=== PATIENT | male | born 1945 | race Caucasian/White ===

== ENCOUNTER 2024-04-22 14:08 | Outpatient (OUT) | payer MEDICARE, SELFPAY ==
[2024-04-23 10:03] LABS: Prostate Specific Antigen Dx <0.13 ng/mL (<=4.00)
== END 2024-04-22 14:09 | disposition home or self-care (01) ==
LOC: LAB 14:12
PROVIDERS: PCP Internal Medicine; Visit Provider Radiology Radiation Oncology
DX: Z85.46 Personal history of malignant neoplasm of prostate (principal)
CPT/HCPCS: 36415; 84153

== ENCOUNTER 2025-05-06 15:33 | Outpatient (OUT) | payer MEDICARE, SELFPAY ==
--- OUTSIDE RECORDS SUMMARY | 2025-05-06 15:35 | XMS_ITS | Encounter Summary ---
Author Organization [facility] Address [address] [place] [address] Care Team Providers Care Quality Assurance Representative Name Role Phone Huber Henning MD Primary Care Provider [phone] Huber Henning MD Unavailable [phone] Encounter Details Date Type Department Care Team (Late Contact Info) Description 12/04/2024 Abstract [facility] [address] [facility] [address] [place] [phone] Huber Henning MD [address] [facility] 110 [place] [address] Social History Tobacco Use Types Packs/Day Years Used Date Smoking Tobacco: Never Smokeless Tobacco: Never Alcohol Use Standard Drinks/Week Comments Never 0 (1 standard drink = 0.6 oz pur e alcohol) PHQ-2 Answer Date Recorded Patient Health Questionnaire-2 Score 0 11/28/2024 Sex and Gender Information Value Date Recorded Sex Assigned at Not on file Legal Sex Male 6:48 PM EDT Gender Identity Not on file Sexual Orientation Not on file documented as of this encounter Plan of Treatment Upcoming Encounters Date Type Department Care Team (Late Contact Info) Description 05/22/2025 8:30 AM EDT Office Visit [facility] [place] [facility] [address] [facility] [address] [place] [address] Huber Henning MD [address] [facility] 110 [place] [address] 06/15/2025 9:30 AM EDT Office Visit [facility] [address] [place] [phone] Renetta Armas PA [address] [place] [address] documented as of this encounter Visit Diagnoses Not on filedocumented in this encounter Care Teams Quality Assurance Representative Relationship Specialty Start Date End Date Huber Henning MD [address] [facility] 110 [place] [address] PCP - General Internal Medicine 02/21/23 Huber Henning MD [address] [facility] 110 [place] [address] PCP - Sravani SALINAS 03/20/24 documented as of this encounter
--- OUTSIDE RECORDS SUMMARY | 2025-05-06 15:35 | XMS_ITS | Encounter Summary ---
Author Organization [facility] Address [address] [place] [address] Phone Care Team Providers Care Campus Administrator Name Role Phone Huber Henning MD Primary Care Provider [phone] Encounter Details Date Type Department Care Team (Late st Contact Info) Description 04/29/2025 Scanned Document [facility] [address] [place] [phone] Scanning, Generic Provider Social History Tobacco Use Types Packs/Day Years Used Date Smoking Tobacco: Never Smokeless Tobacco: Never Alcohol Use Standard Drinks/Week Comments Never 0 (1 standard drink = 0.6 oz pur e alcohol) Sex and Gender Information Value Date Recorded Sex Assigned at Not on file Legal Sex Male 10:35 PM EST Gender Identity Not on file Sexual Orientation Not on file documented as of this encounter Plan of Treatment Upcoming Encounters Date Type Department Care Team (Late st Contact Info) Description 07/23/2025 12:50 PM EST [facility] [address] [address] Lizzeth Sanchez MD 703 [facility] [place] [address] documented as of this encounter Procedures Procedure Name Priority Date/Time Associated Diagnosis Comments ECHOCARDIOGRAM 04/29/2025 documented in this encounter Results * Echocardiogram (04/29/2025) Narrative 04/29/2025 Ordered by an unspecified provider. us Generic Provider Scanning CV ECHO PROCEDURES Fin al Result documented in this encounter Visit Diagnoses Not on filedocumented in this encounter Additional Health Concerns Assessment Noted Time A fall risk assessment has been complete d for the patient 04/02/2025 1:42 PM EDT documented as of this encounter Care Teams Campus Administrator Relationship Specialty Start Date End Date Huber Henning MD 112 [facility] 110 [place] [address] PCP - General Internal Medicine 03/18/25 documented as of this encounter
--- OUTSIDE RECORDS SUMMARY | 2025-05-06 15:35 | XMS_ITS | Clinical Summary ---
Author Organization [facility] Address [address] [place] [address] Phone Care Team Providers Care Document Review Specialist Name Role Phone Huber Henning MD Primary Care Provider [phone] Allergies No known active allergies Medications glucosamine sulfate 500 mg tablet Take 1 tablet by mouth once daily. At the same time each day Active omeprazole (PriLOSEC) [address] capsule Take 1 capsule (40 mg) by mouth once daily in the morning. Take before meals. Active amLODIPine (Norvasc) 2.5 mg tablet Take 1 tablet (2.5 mg) by mouth once daily. 04/29/2024 Active aspirin 81 mg EC tablet Take 1 tablet (81 mg) by mouth once daily. Active meloxicam (Mobic) 15 mg tablet Take 1 tablet (15 mg) by mouth once daily. Take with food. 03/17/2025 Active calcium carbonate-vitam in D3 600 mg-5 mcg (200 unit) tablet Take 1 tablet by mouth once daily. Active simvastatin (Zocor) 40 mg tablet Take 1 tablet (40 mg) by mouth once daily in the evening. 04/22/2024 Active predniSONE (Deltasone) 5 mg tablet Take 1 tablet (5 mg) by mouth once daily. 01/08/2025 Active omega 7-ajo-lxq-fish oil (Fish OiL) 1,200 (144-216) mg capsule Take 1 capsule (1,200 mg) by mouth once daily. 07/28/2024 Active Active Problems Problem Noted Date Diagnosed Date Nonrheumatic mitral valve regurgitation 04/02/20 25 Mild aortic stenosis 04/02/2025 Essential hypertension 04/02/2025 Mixed hyperlipidemia 04/02/2025 BMI 31.0-31.9,adult 04/02/2025 Never smoked tobacco 04/02/2025 Encounters Date Type Department Care Team Description 04/30/2025 Telephone [facility] [address] [facility] 101 [place] [phone] Lizzeth Sanchez MD 04/29/2025 Scanned Document [facility] [address] [place] [address] Scanning, Generic Provider 04/29/2025 Orders Only [facility] [address] [place] [address] Lizzeth Sanchez MD 04/02/2025 2:10 PM EDT Office Visit [address] [place] [address] Lizzeth Sanchez MD Nonrheumatic mitral valve regurgitation (Primary Dx); Mild aortic stenosis; Essential hypertension; Mixed hyperlipidemia; BMI 31.0-31.9,adult; Never smoked tobacco Discharge Disposition: Home 04/02/2025 Travel 03/18/[address] [place] [address] Generic Provider, No Assigned PcpMD 03/18/2025 Scanned Document [facility] [address] [place] [address] Scanning, Generic Provider from Last 3 Months Immunizations Immunization Administration Dates Next Due Influenza, seasonal, injectable 05/09/2024 Family History Medical History Relation Name Comments Cancer Brother Lung cancer Father Cirrhosis Mother Relation Name Status Comments Brother Father Mother Social History Tobacco Use Types Packs/Day Years Used Date Smoking Tobacco: Never Smokeless Tobacco: Never Tobacco Cessation:Counseling Given: Not Answered Alcohol Use Standard Drinks/Week Comments Never 0 (1 standard drink = 0.6 oz pur e alcohol) Sex and Gender Information Value Date Recorded Sex Assigned at Not on file Legal Sex Male 10:35 PM EST Gender Identity Not on file Sexual Orientation Not on file Last Filed Vital Signs Vital Sign Reading Time Taken Comments Blood Pressure 128/72 04/02/2025 1:46 PM EDT Pulse 78 04/02/2025 1:43 PM EDT Temperature - - Respiratory Rate - - Oxygen Saturation - - Inhaled Oxygen Concentration - - Weight 97.1 kg (214 lb) 04/02/2025 1:43 PM EDT Height 175.3 cm (5' 9 ) 04/02/2025 1:43 PM EDT Body Mass Index 31.6 04/02/2025 1:43 PM EDT Plan of Treatment Upcoming Encounters Date Type Department Care Team (Late st Contact Info) Description 07/23/2025 12:50 PM EST Office Visit [facility] [address] [address] Lizzeth Sanchez MD 703 [facility] [address] [place] [address] Health Maintenance Due Date Last Done Comments Welcome to Medicare Visit 1945 Zoster Vaccines (2 of 2) 04/18/2023 02/21/2023 COVID-19 Vaccine (4 - season) 2025 04/30/2024, 05/24/2023, 05/11/2022 Influenza Vaccine (#1) 2025 , 04/20/2024, 05/24/2023, Additional history exists Lipid Panel 03/18/2030 03/18/2025 DTaP/Tdap/Td Vaccines (2 - Td or Tdap) 02/21/2033 02/21/2023 Pneumococcal Vaccine Completed 02/23/2023, 01/04/2017, 07/28/2014 RSV High Risk: (Elderly (60+) or Population) Completed 04/20/2024 HIB Vaccines Aged Out No longer eligi ble based on patient's age to complete this topic HPV Vaccines Aged Out No longer eligi ble based on patient's age to complete this topic Hepatitis A Vaccines Aged Out No long er eligible based on patient's age to complete this topic Hepatitis B Vaccines Aged Out No long er eligible based on patient's age to complete this topic IPV Vaccines Aged Out No longer eligi ble based on patient's age to complete this topic Meningococcal Vaccine Aged Out No bhavik compa eligible based on patient's age to complete this topic Rotavirus Vaccines Aged Out No longer eligible based on patient's age to complete this topic Procedures Procedure Name Priority Date/Time Associated Diagnosis Comments TRANSESOPHAGEAL ECHO 04/29/2025 11:28 AM EDT ECHOCARDIOGRAM 04/29/2025 ECG 12-LEAD Routine 04/02/2025 2:10 PM EDT Mild aortic stenosis from Last 3 Months Results * Transesophageal Echo (04/29/2025 11:28 AM EDT) 04/29/2025 11:2 8 AM EDT [facility] - 04/30/2025 12:30 PM EDT [facility] [place] [address] Echocardiogram Signed Patient: Blake Gutierrez MR#: [id number] 54 : 1945 Acct:[id number] Age/Sex: 79 / M ADM Date: 04/29/25 Loc: Room: Type: [facility] Attending Dr: Lizzeth Sanchez MD Ordering Provider: Lizzeth Sanchez MD Date of Service: 04/29/25/ ECH/ECH echo transesophageal FREDI: Copies to: Lizzeth Sanchez MD RVT BSA: 2.0 m2 BP: 170/100 mmHg HR: 79 Reason For Study: History: No cardiac history per patient Interpretation Summary Mild concentric left ventricular hypertrophy. Ejection Fraction = 60-65%. A variety of Doppler measurements indicate normal left ventricular diastolic function. The left atrium appears mildly dilated. Mildly patent foramen ovale membrane Mild valvular aortic stenosis. The aortic valve maximum pressure gradient is 30 mmHg. The aortic valve mean gradient is 14 mmHg. Mitral valve is abnormal. It demonstrates thickening and redundancy of the mitral l valve leaflet with evidence of mild prolapse of the posterior mitral valve leaflet causing moderate to severe mitral regurgitation towards the the intra-atrial septum it appears the prolapse affecting primarily the P2 scallop There is trace tricuspid regurgitation. Procdure: A saline contrast injection was performed to assess for cardiac shunting. A two-dimensional transesophageal echocardiogram with color flow and Doppler was performed. Informed consent for Transesophageal Echocardiogram was obtained prior to the procedure. The patient was brought to the procedure room in a fasting state. A two-dimensional transesophageal echocardiogram with color flow and Doppler was performed. Informed consent for Transesophageal Echocardiogram was obtained prior to the procedure. The patient was brought to the procedure room in a fasting state. An intravenous line was placed. A topical anesthetic agent was used for oropharangeal anesthesia. A bite block was inserted. A total of 80 mg of Propafol was given. A total of 1 mg of Versed was given. A multifrequency, multiplane transesopheageal echocardiographic endoscope was inserted and manipulated in the standard fashion to achieve multiplane views. The probe was passed without difficulty. The usual views were obtained; basal, mid-esophageal, transgastric and aortic views. The patient's vital signs including blood pressure, heart rate, pulse oximetry and cardiac rhythm were monitored throughout the procedure and remained stable. Contrast injection with agitated saline was performed. There were no complications. Resting heart rate is 95 bpm. Resting blood pressure is 178/80 mmHg. A multifrequency, multiplane transesopheageal echocardiographic endoscope was inserted and manipulated in the standard fashion to achieve multiplane views. The transesophageal probe was passed without difficulty. The usual views were obtained; basal, mid-esophageal, transgastric and aortic views. The patient's vital signs, including blood pressure, heart rate, pulse oximetry and cardiac rhythm were monitored throughout the procedure and remained stable. The patient tolerated the procedure well without evidence of orophangeal or esophageal trauma. Contrast injection with agitated saline was performed. Left Ventricle: The left ventricular size is normal. Mild concentric left ventricular hypertrophy. Ejection Fraction = 60-65%. A variety of Doppler measurements indicate normal left ventricular diastolic function. Left Atrium: The left atrium appears mildly dilated. Mildly patent foramen ovale membrane. Right Atrium: The right atrium appears normal in size. Right Ventricle: The right ventricular size, thickness and function are normal. Aortic Valve: The aortic valve is mildly calcified. Mild valvular aortic stenosis. The aortic valve maximum pressure gradient is 30 mmHg. The aortic valve mean gradient is 14 mmHg. Mitral Valve: Mitral valve is abnormal. It demonstrates thickening and redundancy of the mitral l valve leaflet with evidence of mild prolapse of the posterior mitral valve leaflet causing moderate to severe mitral regurgitation towards the the intra-atrial septum it appears the prolapse affecting primarily the P2 scallop. Tricuspid Valve: The tricuspid valve is normal. There is trace tricuspid regurgitation. Transcribed By: SCV Performed At: 04/29/25 1128 Signed By: Lizzeth Sanchez MD 04/30/25 1230 us Lizzeth Sanchez MD CV ECHO PROCEDURES Final R esult Performing Organization Address City/[facility]/ZIP Co de Phone Number [facility] [address] [place] [address], [place] * Echocardiogram (04/29/2025) Narrative 04/29/2025 Ordered by an unspecified provider. us Generic Provider Scanning CV ECHO PROCEDURES Fin al Result * ECG 12 Lead (04/02/2025 2:10 PM EDT) Narrative [facility] - 04/02/2025 2:39 PM EDT Normal sinus rhythm us Lizzeth Sanchez MD ECG ORDERABLES Final Resu lt CPA from Last 3 Months Insurance [employer] MEDIC[employer] ADVANTAGE [employer] MEDICARE ADVANTAGE Care Teams Document Review Specialist Relationship Specialty Start Date End Date Huber Henning MD 112 [facility] 110 [place] [address] PCP - General Internal Medicine 03/18/25
--- OUTSIDE RECORDS SUMMARY | 2025-05-06 15:35 | XMS_ITS | Encounter Summary ---
Author Organization [facility] Address [address] [facility] [place] [address] Care Team Providers Care Community Health Nurse Name Role Phone Huber Henning MD Primary Care Provider [phone] Huber Henning MD Unavailable [phone] Huber Henning MD Unavailable [phone] Huber Henning MD Unavailable [phone] Encounter Details Date Type Department Care Team (Late st Contact Info) Description 08/27/2024 Abstract [facility] [place] [facility] [address] [facility] 110 [place] [address] Huber Henning MD [address] [facility] 110 [place], [place] [id number] Social History Tobacco Use Types Packs/Day Years Used Date Smoking Tobacco: Never Smokeless Tobacco: Never Alcohol Use Standard Drinks/Week Comments Never 0 (1 standard drink = 0.6 oz pur e alcohol) PHQ-2 Answer Date Recorded Patient Health Questionnaire-2 Score 0 08/27/2024 Sex and Gender Information Value Date Recorded Sex Assigned at Not on file Legal Sex Male 6:48 PM EDT Gender Identity Not on file Sexual Orientation Not on file documented as of this encounter Functional Status * Over the past 2 weeks, how often have you been bothered by any of the following problems? Question Answer Date of Assessment Author Little interest or pleasure in doing things Not at all 08/27/2024 8:00 AM Sahra Christie LP N Feeling down, depressed, or hopeless Not at all 08/27/2024 8:00 AM Sahra Christie LP N Patient Health Questionnaire -2 Score 0 08/27/2024 8:00 AM EST Sahra Chery LP N documented as of this encounter Plan of Treatment Upcoming Encounters Date Type Department Care Team (Late st Contact Info) Description 05/22/2025 8:30 AM EDT Office Visit [facility] [address] [place] [address] [place] [address] Huber Henning MD [address] [place] [address] [place] [address] 06/15/2025 9:30 AM EDT Office Visit [facility] [address] [place] [address] [place] [address] Renetta Armas PA [address] [place] [address] [place] [address] documented as of this encounter Visit Diagnoses Not on filedocumented in this encounter Care Teams Community Health Nurse Relationship Specialty Start Date End Date Huber Henning MD [address] [place] [address] [place] [address] PCP - General Internal Medicine 02/21/23 Huber Henning MD [address] [place] [address] [place] [address] PCP - ACO Reach 10/19/23 09/25/24 Huber Henning MD [address] [place] [address] [place] [address] PCP - Sravani SALINAS 03/20/24 Huber Henning MD [address] [place] [address] [place] [address] PCP - ACO Reach 10/03/24 11/20/24 documented as of this encounter
--- OUTSIDE RECORDS SUMMARY | 2025-05-06 15:35 | XMS_ITS | Clinical Summary ---
Author Organization [facility] Address [address] [place], [place] [address] Care Team Providers Care Die Maker Electronic Name Role Phone Juvencio ROSAS MD, Huber Loving Primary Care Provider [phone] Allergies No known active allergies Medications lisinopril (ZESTRIL, PRINIVIL) 40 mg tablet Take 40 mg by mouth once daily. 3 12/20/2017 Active simvastatin (ZOCOR) 40 mg tablet Take 40 mg by mouth daily at bedtime. 3 12/20/2017 Active meloxicam (MOBIC) 15 mg tablet Take 15 mg by mouth once daily. 3 12/20/2017 Active amLODIPine (NORVASC) 2.5 mg tablet Take 2.5 mg by mouth once daily. 5 12/20/2017 Active predniSONE (DELTASONE) 10 mg tablet Take 5 mg by mouth once daily. 3 12/20/2017 Active aspirin, enteric coated (ASPIRIN, ENTERIC COATED) 81 mg EC tablet Take 81 mg by mouth once daily. Active calcium carbonate/vitami n D3 (CALCIUM 600 + D,3, ORAL) Take by mouth. Active gluc solomon/chondro solomon A/vit C/Mn (GLUCOSAMINE 1500 COMPLEX ORAL) Take by mouth. Active Omeprazole 40 mg capsule Take 40 mg by mouth once daily. Active furosemide (LASIX) 20 mg tablet Take 20 mg by mouth twice daily. Active Active Problems Problem Noted Date Diagnosed Date Prostate cancer 01/22/2018 Immunizations Immunization Administration Dates Next Due influenza (HD-IIV3) vaccine, age 65+ yr, high dose, trivalent, PF (FLUZONE HIGH-DOSE) 06/22/2021,05/19/2019,06/06/2018,05/10 influenza (IIV3) vaccine, tr ivalent (AFLURIA, FLULAVAL, FLUVIRIN, FLUZONE) 04/16/2015 influenza (IIV3) vaccine, tr ivalent, PF (AFLURIA, FLUARIX, FLULAVAL, FLUVIRIN, FLUZONE) 06/22/2014 influenza (IIV4) vaccine, ag e 6 mo - 64 yr, quadrivalent, PF (AFLURIA, FLUARIX, FLULAVAL, FLUZONE) 07/03/2016 influenza (LAIV) vaccine, na connor, unspecified formulation 04/20/2018 influenza (aIIV4) vaccine, a ge 65+ yr, quadrivalent, PF (FLUAD QUAD) 06/03/2020 pneumococcal conjugate (PCV1 3) vaccine, 13 valent (PREVNAR 13) 01/04/2017 pneumococcal polysaccharide (PPV23) vaccine, 23 valent (PNEUMOVAX 23) 07/28/2014 Family History Medical History Relation Comments Cancer Father Cancer Mother Relation Status Comments Father Lung Mother Social History Tobacco Use Types Packs/Day Years Used Date Smoking Tobacco: Never Smokeless Tobacco: Never Tobacco Cessation:Counseling Given: Not Answered Alcohol Use Standard Drinks/Week Comments No 0 (1 standard drink = 0.6 oz pur e alcohol) PHQ-2 Answer Date Recorded PHQ-2 score 0 04/30/2024 Area Deprivation Index Answer Date Sam rded National Score (1-100), lower number is lower ri sk Not on file 07/27/2020 State Score (1-10), lower number is lower risk N ot on file 07/27/2020 Data from: https://www.neighborhoodatlas.[facility].edu/. Last address used for calculation Not on file 07/27/2020 Sex and Gender Information Value Date Recorded Sex Assigned at Not on file Legal Sex Male 11:21 AM EDT Gender Identity Not on file Sexual Orientation Not on file Last Filed Vital Signs Vital Sign Reading Time Taken Comments Blood Pressure 162/89 04/30/2024 10:46 AM EDT Pulse 77 04/30/2024 10:46 AM EDT Temperature 36.3 C (97.4 F) 04/30/2024 10:46 AM EDT Respiratory Rate 18 04/30/2024 10:46 AM EDT Oxygen Saturation 99% 04/30/2024 10:46 AM EDT Inhaled Oxygen Concentration - - Weight 88.3 kg (194 lb 9.6 oz) 04/30/2024 10:46 AM EDT Height 177.2 cm (5' 9.76 ) 05/01/2018 10:11 AM E DT Body Mass Index 28.11 05/01/2018 10:11 AM EDT Plan of Treatment Upcoming Encounters Date Type Department Care Team (Late st Contact Info) Description 05/20/2025 11:00 AM EDT Office Visit Radiation Oncology [address] [place] [address] Karthik Vaz MD [address] [place] [address] [place] [address] Followup Health Maintenance Due Date Last Done Comments Anxiety Screening 1963 Depression Screening 1963 Shingrix Vaccine (2 of 2) 04/18/2023 02/21/2023 Advance Directive Discussion 08/20/2024 Medicare Advantage Annual We llness Visit 08/20/2024 Influenza Vaccine (#1) 2025 , 05/24/2023, 05/11/2022, Additional history exists Diabetes Screening 05/24/2026 05/24/2023 DTaP,Tdap,Td Vaccine (2 - Td or Tdap) 02/21/2033 02/21/2023 Pneumococcal Vaccine: 50+ Completed 2022, 01/04/2017, 07/28/2014 RSV Vaccine Completed 04/20/2024 Insurance [facility] MEDICARE ADVANTAGE O Care Teams Die Maker Electronic Relationship Specialty Start Date End Date Huber Henning II, MD [address] [facility] [address] [place] [address] PCP - General Internal Medicine 01/22/18
--- OUTSIDE RECORDS SUMMARY | 2025-05-06 15:35 | XMS_ITS | Encounter Summary ---
Author Organization [facility] Address [address] [place] [address] Care Team Providers Care Manager Gallery Name Role Phone Huber Henning MD Primary Care Provider [phone] Huber Henning MD Unavailable [phone] Encounter Details Date Type Department Care Team (Late Contact Info) Description 01/09/2025 External Result Encounter [facility] External Department Unsolicited Huber Henning MD [address] [facility] [address] [place], [place] [id number] Social History Tobacco Use Types Packs/Day Years [...] AM EDT [facility] [address] [facility] 110 [place] [address] Huber Henning MD [address] [facility] 110 [place] [address] 06/15/2025 9:30 AM EDT Office Visit [facility] [address] [place] [phone] Renetta Armas PA [address] [place] [address] documented as of this encounter Procedures Procedure Name Priority Date/Time Associated Diagnosis Comments TRANSTHORACIC ECHO (TTE) COMPLETE 01/09/2025 8:32 AM EDT documented in this encounter Results * Transthoracic echo (TTE) complete (01/09/2025 8:32 AM EDT) Anatomical Region Laterality Modality Heart Ultrasound 01/09/2025 8:32 AM EDT Narrative 01/09/2025 3:55 PM EDT [facility] [address] [place] [id number] Echocardiogram Signed Patient: Blake Gutierrez MR#: [id number] 55 : 1945 Acct:[id number] Age/Sex: 79 / M ADM Date: 01/09/25 Loc: Room: Type: [facility] Attending Dr: Huber Henning II, MD Ordering Provider: Huber Henning II, MD Date of Service: 01/09/25/ ECH/ECH echo transthoracic: Murmur. Dyspnea. Copies to: MD Lizzeth Parson II, MD BSA: 2.0 m2 HR: 74 Reason For Study: Murmur. Dyspnea. History: No cardiac history per patient Interpretation Summary Ejection Fraction = 60-65%. The left ventricular wall motion is normal. Mild concentric left ventricular hypertrophy. The left atrium appears moderately dilated. Mild valvular aortic stenosis. The aortic valve maximum pressure gradient is 27 mmHg. The aortic valve mean gradient is 15 mmHg. The aortic valve area is calculated to be 1.2 cm2. Thickened mitral valve leaflets. There is an eccentric mitral regurgitation jet appears to be in the moderate to severe range. Difficult to exclude partially flail posterior mitral valve leaflet There is mild tricuspid regurgitation. There is no comparison study available. Consider transesophageal echocardiogram for better assessment of the mitral valve pathology. Procedure/Quality: A two-dimensional transthoracic echocardiogram with color flow and Doppler was performed. The study was technically good in quality. Left Ventricle: The left ventricular size is normal. Mild concentric left ventricular hypertrophy. Ejection Fraction = 60-65%. A variety of Doppler measurements indicate normal left ventricular diastolic function. The left ventricular wall motion is normal. Left Atrium: The left atrium appears moderately dilated. The atrial septum appears normal. Right Atrium: The right atrium appears normal in size. Right Ventricle: The right ventricular size, thickness and function are normal. Aortic Valve: The aortic valve is moderately calcified. Mild valvular aortic stenosis. The aortic valve maximum pressure gradient is 27 mmHg. The aortic valve mean gradient is 15 mmHg. The aortic valve area is calculated to be 1.2 cm2. No aortic regurgitation is present. Mitral Valve: Thickened mitral valve leaflets. There is an eccentric mitral regurgitation jet appears to be in the moderate to severe range. Difficult to exclude partially flail posterior mitral valve leaflet. There is no mitral regurgitation noted. Tricuspid Valve: The tricuspid valve is normal in structure and function. There is mild tricuspid regurgitation. Right ventricular systolic pressure is normal. Pulmonic Valve: The pulmonic valve is normal in structure and function. Arteries: The aortic root is normal size. Pericardium/Pleura: No pericardial effusion seen. There is no pleural effusion. IVC/Hepatic Veins: The inferior vena cava is normal in size, with a normal collapsibility index. Measurements with Normals IVSd: 1.4 cm (0.7-1.1 cm)LVIDd: 5.2 cm (3.7-5.4 cm) LVPWd: 1.1 cm (0.7-1.1 cm)LVIDs: 3.6 cm (2.3-3.6 cm) LA dimension: 5.0 cm (2.3-4.0 cm)Ao root diam: 3.1 cm(2.0-3.6 cm) asc Aorta Diam: 3.6 cm(2.1-3.4cm) Doppler with Normals RVSP(TR): 29.3 mmHg (18-35mmHg) LV V1 max: 99.5 cm/sec (0.7-1.7m/s)MV E max jacobo: 96.7 cm/sec(0.8-1.3m/s) MV A max jacobo: 116.0 cm/sec(0.0-0.0m/s) MV E/A: 0.83 (<1.5) MMode/2D Measurements Calculations TAPSE: 2.9 cm FS: 30.1 % Ao root area: LVOT diam: 2.0 cm RV S Jacobo: EDV(Teich): 7.5 cm2 LVOT area: 3.3 cm2 18.5 cm/sec 129.5 ml ESV(Teich): 55.7 ml EF(Teich): 57.0 % __ LVLd ap4: 7.7 cm SV(MOD-sp4): LAV(MOD-sp4): LA A2 area: 17.9 cm2 EDV(MOD-sp4): 67.3 ml 72.0 ml 97.1 ml LAV(MOD-sp2): LA A4 area: 22.4 cm2 LVLs ap4: 6.0 cm 45.7 ml LA length (vol): ESV(MOD-sp4): 5.6 cm 29.8 ml LA vol: 60.3 ml EF(MOD-sp4): 69.3 % LA vol index: 29.6 ml/m2 Doppler Measurements Calculations MV dec time: MV V2 max: E/E' lat: 11.3 Ao V2 max: 0.18 sec 129.4 cm/sec E/E' med: 16.2 263.0 cm/sec MV max PG: Ao max P.7 mmHg 190.0 mmHg Ao mean PG: MV V2 mean: 15.0 mmHg 74.5 cm/sec Ao V2 mean: MV mean P.6 mmHg 176.0 cm/sec MV V2 VTI: 37.0 cm Ao V2 VTI: 55.8 cm MVA(VTI): 1.9 cm2 FEDERICO(I,D): 1.2 cm2 FEDERICO(V,D): 1.2 cm2 __ LV V1 max PG: MR max jacobo: TV max PG: TR max jacobo: 4.0 mmHg 690.5 cm/sec 26.0 mmHg 256.5 cm/sec LV V1 mean PG: MR max PG: TR max P.3 mmHg 2.0 mmHg 190.9 mmHg RAP systole: LV V1 mean: 3.0 mmHg 64.5 cm/sec LV V1 VTI: 21.1 cm Transcribed By: SCV Performed At: 01/09/25 0832 Signed By: Lizzeth Sanchez MD 01/09/25 1555 Procedure Note Lizzeth Sanchez MD - 01/09/2025 [facility] [address] [place] [address] Echocardiogram Signed Patient: Blake Gutierrez KMR#: [id number] 54 : 5Acct:[id number] Age/Sex: 79 / MADM Date: 01/09/25 Loc: Room:Type: [facility] Attending Dr: Huber Henning II, MD Ordering Provider: Huber Henning II, MD Date of Service: 01/09/25/ ECH/ECH echo transthoracic: Murmur. Dyspnea. Copies to: MD Lizzeth Parson II, MD BSA: 2.0 m2 HR: 74 Reason For Study: Murmur. Dyspnea. History: No cardiac history per patient Interpretation Summary Ejection Fraction = 60-65%. The left ventricular wall motion is normal. Mild concentric left ventricular hypertrophy. The left atrium appears moderately dilated. Mild valvular aortic stenosis. The aortic valve maximum pressure gradient is 27 mmHg. The aortic valve mean gradient is 15 mmHg. The aortic valve area is calculated to be 1.2 cm2. Thickened mitral valve leaflets. There is an eccentric mitralregurgitation jet appears to be in the moderate to severe range. Difficult to exclude partially flail posterior mitral valve leaflet There is mild tricuspid regurgitation. There is no comparison study available. Consider transesophageal echocardiogram for better assessment of the mitral valve pathology. Procedure/Quality: A two-dimensional transthoracic echocardiogram withcolor flow and Doppler was performed. The study was technically good in quality. Left Ventricle: The left ventricular size is normal. Mild concentricleft ventricular hypertrophy. Ejection Fraction = 60-65%. A variety of Doppler measurements indicate normal left ventricular diastolic function. The left ventricular wall motion is normal. Left Atrium: The left atrium appears moderately dilated. The atrialseptum appears normal. Right Atrium: The right atrium appears normal in size. Right Ventricle: The right ventricular size, thickness and function are normal. Aortic Valve: The aortic valve is moderately calcified. Mild valvularaortic stenosis. The aortic valve maximum pressure gradient is 27 mmHg. Theaortic valve mean gradient is 15 mmHg. The aortic valve area is calculated to be1.2 cm2. No aortic regurgitation is present. Mitral Valve: Thickened mitral valve leaflets. There is an eccentricmitral regurgitation jet appears to be in the moderate to severe range. Difficultto exclude partially flail posterior mitral valve leaflet. There is no mitral regurgitation noted. Tricuspid Valve: The tricuspid valve is normal in structure andfunction. There is mild tricuspid regurgitation. Right ventricular systolic pressureis normal. Pulmonic Valve: The pulmonic valve is normal in structure and function. Arteries: The aortic root is normal size. Pericardium/Pleura: No pericardial effusion seen. There is no pleural effusion. IVC/Hepatic Veins: The inferior vena cava is normal in size, with anormal collapsibility index. Measurements with Normals IVSd: 1.4 cm (0.7-1.1 cm)LVIDd: 5.2 cm (3.7-5.4 cm) LVPWd: 1.1 cm (0.7-1.1 cm)LVIDs: 3.6 cm (2.3-3.6 cm) LA dimension: 5.0 cm (2.3-4.0 cm)Ao root diam: 3.1 cm(2.0-3.6 cm) asc Aorta Diam: 3.6 cm(2.1-3.4cm) Doppler with Normals RVSP(TR): 29.3 mmHg (18-35mmHg) LV V1 max: 99.5 cm/sec (0.7-1.7m/s)MV E max jacobo: 96.7cm/sec(0.8-1.3m/s) MV A max jacobo: 116.0 cm/sec(0.0-0.0m/s) MV E/A: 0.83 (<1.5) MMode/2D Measurements Calculations TAPSE: 2.9 cm FS: 30.1 % Ao root area: LVOT diam: 2.0 cm RV S Jacobo: EDV(Teich): 7.5 cm2 LVOT area: 3.3 cm2 18.5 cm/sec 129.5 ml ESV(Teich): 55.7 ml EF(Teich): 57.0 % __ LVLd ap4: 7.7 cm SV(MOD-sp4): LAV(MOD-sp4): LA A2 area: 17.9cm2 EDV(MOD-sp4): 67.3 ml 72.0 ml 97.1 ml LAV(MOD-sp2): LA A4 area: 22.4cm2 LVLs ap4: 6.0 cm 45.7 ml LA length (vol): ESV(MOD-sp4): 5.6 cm 29.8 ml LA vol: 60.3 ml EF(MOD-sp4): 69.3 % LA vol index: 29.6 ml/m2 Doppler Measurements Calculations MV dec time: MV V2 max: E/E' lat: 11.3 Ao V2 max: 0.18 sec 129.4 cm/sec E/E' med: 16.2 263.0 cm/sec MV max PG: Ao max P.7mmHg 190.0 mmHg Ao mean PG: MV V2 mean: 15.0 mmHg 74.5 cm/sec Ao V2 mean: MV mean P.6 mmHg 176.0 cm/sec MV V2 VTI: 37.0 cm Ao V2 VTI: 55.8cm MVA(VTI): 1.9 cm2 FEDERICO(I,D): 1.2 cm2 FEDERICO(V,D): 1.2 cm2 __ LV V1 max PG: MR max jacobo: TV max PG: TR max jacobo: 4.0 mmHg 690.5 cm/sec 26.0 mmHg 256.5 cm/sec LV V1 mean PG: MR max PG: TR max P.3mmHg 2.0 mmHg 190.9 mmHg RAP systole: LV V1 mean: 3.0 mmHg 64.5 cm/sec LV V1 VTI: 21.1 cm Transcribed By: SCV Performed At: 01/09/25 0832 Signed By: Lizzeth Sanchez MD 01/09/25 1555 us Huber Henning MD CV ECHO PROCEDURES Final Resul t documented in this encounter Visit Diagnoses Not on filedocumented in this encounter Care Teams Manager Gallery Relationship Specialty Start Date End Date Huber Henning MD [address] [facility] 110 [place] [address] PCP - General Internal Medicine 02/21/23 Huber Henning MD [address] [facility] 110 [place] [address] PCP - Sravani SALINAS 03/20/24 documented as of this encounter
--- OUTSIDE RECORDS SUMMARY | 2025-05-06 15:35 | XMS_ITS | Encounter Summary ---
Author Organization [facility] Address [address] [place] [address] Phone Care Team Providers Care Crew Chief Name Role Phone Huber Henning MD Primary Care Provider [phone] Encounter Details Date Type Department Care Team (Late st Contact Info) Description 03/18/2025 Scanned Document [facility] [place] [facility] [address] [place] [id number] Scanning, Generic Provider Social History Tobacco Use Types Packs/Day Years Used Date Smoking Tobacco: Never Assessed Sex and Gender Information Value Date Recorded Sex Assigned at Not on file Legal Sex Male 10:35 PM EST Gender Identity Not on file Sexual Orientation Not on file documented as of this encounter Plan of Treatment Upcoming Encounters Date Type Department Care Team (Late st Contact Info) Description 07/23/2025 12:50 PM EST Office Visit [facility] [address] [facility] [address] [place] [address] Lizzeth Sanchez MD [address] [facility] [address] [place] [address] documented as of this encounter Visit Diagnoses Not on filedocumented in this encounter Care Teams Crew Chief Relationship Specialty Start Date End Date Huber Henning MD [address] [facility] 110 [place] [address] PCP - General Internal Medicine 03/18/25 documented as of this encounter
--- OUTSIDE RECORDS SUMMARY | 2025-05-06 15:35 | XMS_ITS | Encounter Summary ---
Author Organization [facility] Address [address] [facility] [address] Care Team Providers Care Performance Specialist Name Role Phone Huber Henning MD Primary Care Provider [phone] Huber Henning MD Unavailable [phone] Huber Henning MD Unavailable [phone] Huber Henning MD Unavailable [phone] Encounter Details Date Type Department Care Team (Late Contact Info) Description 04/11/2023 Abstract [facility] [place] [facility] [address] [facility] [address] [place] [phone] Huber Henning MD [address] [facility] [address] [place], [place] [id number] Social History Tobacco Use Types Packs/Day Years Used Date Smoking Tobacco: Never Smokeless Tobacco: Never Alcohol Use Standard Drinks/Week Comments Never 0 (1 standard drink = 0.6 oz pur e alcohol) PHQ-2 Answer Date Recorded Patient Health Questionnaire-2 Score 0 02/21/2023 Sex and Gender Information Value Date Recorded Sex Assigned at Not on file Legal Sex Male 6:48 PM EDT Gender Identity Not on file Sexual Orientation Not on file documented as of this encounter Plan of Treatment Upcoming Encounters Date Type Department Care Team (Late st Contact Info) Description 05/22/2025 8:30 AM EDT Office Visit [facility] [place] [facility] [address] [facility] [address] [place] [phone] Huber Henning MD [address] [facility] 110 [place] [address] 06/15/2025 9:30 AM EDT Office Visit [facility] [address] [place] [address] Renetta Armas PA [address] [place] [address] documented as of this encounter Visit Diagnoses Not on filedocumented in this encounter Care Teams Performance Specialist Relationship Specialty Start Date End Date Huber Henning MD [address] [facility] [address] [place] [address] PCP - General Internal Medicine 02/21/23 Huber Henning MD [address] [facility] [address] [place] [address] PCP - ACO Reach 10/19/23 09/25/24 Huber Henning MD [address] [facility] [address] [place] [address] PCP - Sravani SALINAS 03/20/24 Huber Henning MD [address] [facility] [address] [place] [address] PCP - ACO Reach 10/03/24 11/20/24 documented as of this encounter
--- OUTSIDE RECORDS SUMMARY | 2025-05-06 15:35 | XMS_ITS | Encounter Summary ---
Author Organization [facility] Address [address] [facility] [place] [address] Care Team Providers Care Fisher Scallop Name Role Phone Huber Henning MD Primary Care Provider [phone] Huber Henning MD Unavailable [phone] Huber Henning MD Unavailable [phone] Huber Henning MD Unavailable [phone] Encounter Details Date Type Department Care Team (Late Contact Info) Description 05/08/2024 Abstract [facility] [place] [facility] [address] [facility] [address] [place] [address] Huber Henning MD [address] [facility] [address] [place] [address] Social History Tobacco Use Types Packs/Day Years Used Date Smoking Tobacco: Never Smokeless Tobacco: Never Alcohol Use Standard Drinks/Week Comments Never 0 (1 standard drink = 0.6 oz pur e alcohol) PHQ-2 Answer Date Recorded Patient Health Questionnaire-2 Score 0 02/25/2024 Sex and Gender Information Value Date Recorded Sex Assigned at Not on file Legal Sex Male 6:48 PM EDT Gender Identity Not on file Sexual Orientation Not on file documented as of this encounter Plan of Treatment Upcoming Encounters Date Type Department Care Team (Late st Contact Info) Description 05/22/2025 8:30 AM EDT Office Visit [facility] [place] [facility] [address] [facility] [address] [place] [phone] Huber Henning MD [address] [facility] 110 [place] [address] 06/15/2025 9:30 AM EDT Office Visit [facility] [address] [place] [address] Renetta Armas PA [address] [place] [address] documented as of this encounter Visit Diagnoses Not on filedocumented in this encounter Care Teams Fisher Scallop Relationship Specialty Start Date End Date Huber Henning MD [address] [facility] [address] [place] [address] PCP - General Internal Medicine 02/21/23 Huber Henning MD [address] [facility] [address] [place] [address] PCP - ACO Reach 10/19/23 09/25/24 Huber Henning MD [address] [facility] [address] [place] [address] PCP - Sravani SALINAS 03/20/24 Huber Henning MD [address] [facility] [address] [place] [address] PCP - ACO Reach 10/03/24 11/20/24 documented as of this encounter
--- OUTSIDE RECORDS SUMMARY | 2025-05-06 15:35 | XMS_ITS | Clinical Summary ---
Author Organization [facility] Healthcare Address [address] [place] [address] Care Team Providers Care Rf Test Engineer Name Role Phone Huber Henning MD Primary Care Provider [phone] Huber Henning MD Unavailable [phone] Allergies No known active allergies Medications omeprazole (PriLOSEC) [address] capsule Take 1 capsule by mouth in the morning. Take before meals. Active Glucosamine Sulfate 500 MG tablet 1 (one) time each day at the same time. Active clotrimazole-betametha sone (Lotrisone) cream Apply 1 application topically in the morning. 2021 Active Multiple Vitamin (multivitamin) capsule Daily. Active Calcium Carbonate-Vit D-Min (GNP Calcium Plus 600 +D) 600-200 MG-UNIT tablet every 12 (twelve) hours. Active aspirin 81 MG EC tablet Take 81 mg by mouth in the morning. Active lisinopril 20 MG tabletIndications:Esse ntial (primary) hypertension Take 1 tablet (20 mg) by mouth in the morning. 90 tablet 3 2022 Active simvastatin (Zocor) 40 MG tabletIndications:Pure hypercholesterolemia TAKE 1 TABLET BY MOUTH EVERY DAY IN THE EVENING 90 tablet 3 2023 Active tiZANidine (Zanaflex) 4 MG tabletIndications:Trap ezius muscle spasm Take 1 tablet (4 mg) by mouth every 8 (eight) hours if needed for muscle spasms for up to 20 days 30 tablet 1 2024 Active meloxicam (Mobic) 15 MG tabletIndications:Othe r chronic pain TAKE 1 TABLET BY MOUTH EVERY DAY WITH FOOD 30 tablet 13 2024 Active predniSONE (Deltasone) 10 MG tabletIndications:Poly myalgia rheumatica ([facility]) TAKE 1 TABLET BY MOUTH EVERY DAY 30 tablet 4 2024 Active amLODIPine (Norvasc) 2.5 MG tabletIndications:Alfonso gn essential hypertension TAKE 1 TABLET BY MOUTH EVERY DAY 90 tablet 3 2024 Active amLODIPine (Norvasc) 2.5 MG tabletIndications:Alfonso gn essential hypertension TAKE 1 TABLET BY MOUTH EVERY DAY 90 tablet 3 04/17 Discontinued Active Problems Problem Noted Date Diagnosed Date Benign prostatic hyperplasia with urinary obstru ction 07/24/2023 Dysuria 07/24/2023 Feeling of incomplete bladder emptying Increased frequency of urination 07/24/2023 Microscopic hematuria 07/24/2023 Nocturia 07/24/2023 Poor urinary stream 07/24/2023 Urge incontinence of urine 07/24/2023 Allergic rhinitis, unspecified 02/19/2023 Arthritis of glenohumeral joint 02/19/2023 Erosive (osteo)arthritis 02/19/2023 Basal cell carcinoma of skin of right upper limb, including shoulder 02/19/2023 Chronic pain 02/19/2023 Disorder of shoulder 02/19/2023 Edema 02/19/2023 Esophageal dysphagia 02/19/2023 Presence of left artificial shoulder joint 02/19 Primary localized osteoarthrosis of shoulder reg ion 02/19/2023 Rotator cuff arthropathy of right shoulder 02/19 Adenocarcinoma of prostate 02/09/2023 Benign essential hypertension 02/09/2023 Elevated PSA 02/09/2023 Gastroesophageal reflux dise ase with esophagitis without hemorrhage 02/09/2023 Generalized osteoarthritis 02/09/2023 Hyponatremia 02/09/2023 Polymyalgia rheumatica ([facility]) 02/09/2023 Pure hypercholesterolemia 02/09/2023 Personal history of skin cancer 03/28/2021 History of malignant neoplasm of prostate 2020 History of malignant neoplasm of skin 03/02/2020 Osteoarthrosis, ankle and foot 12/08/2011 Anemia, unspecified 08/02/2011 Resolved Problems Problem Noted Date Diagnosed Date Resolved Date Hypertension 07/24/2023 02/25/2024 Type 2 diabetes mellitus wit hout complications 02/09/2023 10/29/2023 Encounters Date Type Department Care Team Description 04/17/2025 [facility]ill [facility] [address] [facility] [address] [place] [address] Huber Henning MD Benign essential hypertension 04/06/2025 Refill [facility] [address] [facility] [address] [place] [address] Sahra Chery LPN 03/18/2025 8:30 AM EDT Office Visit [facility] [address] [facility] [address] [place] [address] Huber Henning MD Nonrheumatic mitral valve regurgitation (Primary Dx); Polymyalgia rheumatica ([facility]); Benign essential hypertension ; Pure hypercholesterolemia ; Neoplasm of uncertain behavior of skin of face 03/18/2025 Bamboo flowsheet [facility] [address] [address] [place] [phone] Huber Henning MD 03/18/2025 Travel from Last 3 Months Immunizations Immunization Administration Dates Next Due Influenza Nasal, Unspecified 04/20/2018 Influenza, High Dose Seasona l, Preservative Free 04/20/2024,05/11/2022,06/22/2021,05/19,06/06/2018,05/10/2017 Influenza, High-dose Seasona l, Quadrivalent, Preservative Free 05/24/2023,05/11/2022,05/18/2019,06/06,05/10/2017 Influenza, Seasonal, Quadriv alent, Adjuvanted 06/03/2020 Influenza, injectable, MDCK, preservative free, quadrivalent 06/03/2020 Influenza, injectable, quadr ivalent, preservative free 07/03/2016 Influenza, seasonal, injectable 04/16/2015 Influenza, seasonal, injecta ble, preservative free 06/22/2014 Influenza, seasonal, intrade rmal, preservative free 06/22/2014 Pneumococcal Conjugate PCV 13 01/04/2017 Pneumococcal Conjugate PCV 20 02/23/2023 Pneumococcal Polysaccharide PPSV23 07/28/2014 RSV, recombinant, protein solomon bunit RSVpreF, adjuvant reconstitu, 120mcg/0.5mL, PF (Arexvy) 04/20/2024 SARS-CoV-2, Unspecified 05/24/2023 Tdap 02/21/2023 Zoster, Recombinant 02/21/2023 Family History Medical History Relation Name Comments Lung disease Father Relation Name Status Comments Father Mother Social History Tobacco Use Types Packs/Day Years Used Date Smoking Tobacco: Never Smokeless Tobacco: Never Alcohol Use Standard Drinks/Week Comments Never 0 (1 standard drink = 0.6 oz pur e alcohol) PHQ-2 Answer Date Recorded Patient Health Questionnaire-2 Score 0 03/18/2025 Sex and Gender Information Value Date Recorded Sex Assigned at Not on file Legal Sex Male 6:48 PM EDT Gender Identity Not on file Sexual Orientation Not on file Last Filed Vital Signs Vital Sign Reading Time Taken Comments Blood Pressure 132/80 03/18/2025 8:39 AM EDT Pulse 73 03/18/2025 8:39 AM EDT Temperature - - Respiratory Rate - - Oxygen Saturation 94% 03/18/2025 8:39 AM EDT Inhaled Oxygen Concentration - - Weight 95.7 kg (211 lb) 03/18/2025 8:39 AM EDT Height 175.3 cm (5' 9 ) 03/18/2025 8:39 AM EDT Body Mass Index 31.16 03/18/2025 8:39 AM EDT Plan of Treatment Upcoming Encounters Date Type Department Care Team (Late st Contact Info) Description 05/22/2025 8:30 AM EDT Office Visit [facility] 112 [facility] [address] [place] [address] Huber Henning MD 112 [facility] 110 [place] [address] 06/15/2025 9:30 AM EDT Office Visit [facility] [address] [place] [address] [place] [address] Renetta Armas PA [address] [place] [address] Health Maintenance Due Date Last Done Comments Diabetes: Urine Protein Screening 01/16/2020 019, 06/12/2018 Diabetes: Retinopathy Screening 12/28/2021 0 Diabetes: Hemoglobin A1C 08/24/2023 023, 12/13/2022, 05/11/2022, Additional history exists Influenza Vaccine (#1) 2025 4, 04/20/2024, 05/24/2023, Additional history exists Medicare Annual Wellness (AWV) 08/27/2025 0 08/27/2024, 02/25/2024, 02/21/2023, Additional history exists Pneumococcal Vaccine: 65+ Years Completed 02/23/2023, 01/04/2017, 07/28/2014 Procedures Procedure Name Priority Date/Time Associated Diagnosis Comments LIPID PANEL Routine 03/18/2025 9:29 AM EDT Polymyalgia rheumatica ([facility]) Benign essential hypertension Pure hypercholesterolemia COMPREHENSIVE METABOLIC PANEL Routine 03/18/2025 9:29 AM EDT Polymyalgia rheumatica ([facility]) Benign essential hypertension Pure hypercholesterolemia CBC (INCLUDES DIFF/PLT) Routine 03/18/2025 9:29 AM EDT Polymyalgia rheumatica ([facility]) Benign essential hypertension Pure hypercholesterolemia POCT GLYCATED HEMOGLOBIN, TOTAL Routine 05/24/2023 8:58 AM EDT Type 2 diabetes mellitus without complication, without long-term current use of insulin ([facility]) COLOR FUNDUS PHOTOGRAPHY - OU - BOTH EYES Routine 12/29/2019 12:00 PM EDT MICROALBUMIN / CREATININE URINE RATIO Routine 01/15/2019 from Last 3 Months or Most Recently Relevant to Health Maintenance Results * (ABNORMAL) CBC and differential (03/18/2025 9:29 AM EDT) WHITE BLOOD CELL COUNT 6.8 3.8 - 10.8 Thousand/u L [facility] RED BLOOD CELL COUNT 3.75(L) 4.20 - 5.80 Million/uL [facility] HEMOGLOBIN 12.0(L) 13.2 - 17.1 g/dL [facility] HEMATOCRIT 37.1(L) 38.5 - 50.0 % [facility] MCV 98.9 80.0 - 100.0 fL [facility] MCH 32.0 27.0 - 33.0 pg [facility] MCHC 32.3 32.0 - 36.0 g/dL [facility] Comment: For adults, a slight decrease in the calculated MCHC value (in the range of 30 to 32 g/dL) is most likely not clinically significant; however, it should be interpreted with caution in correlation with other red cell parameters and the patient's clinical condition. RDW 12.2 11.0 - 15.0 % [facility] PLATELET COUNT 147 140 - 400 Thousand/u L [facility] MPV 11.4 7.5 - 12.5 fL [facility] ABSOLUTE NEUTROPHILS 4,223 1,500 - 7,800 cells/uL [facility] ABSOLUTE LYMPHOCYTES 1,428 850 - 3,900 cells/uL [facility] ABSOLUTE MONOCYTES 510 200 - 950 cells/uL [facility] ABSOLUTE EOSINOPHILS 578(H) 15 - 500 cells/uL [facility] ABSOLUTE BASOPHILS 61 0 - 200 cells/uL [facility] NEUTROPHILS 62.1 % [facility] LYMPHOCYTES 21.0 % [facility] MONOCYTES 7.5 % [facility] EOSINOPHILS 8.5 % [facility] BASOPHILS 0.9 % [facility] Blood Venous blood specimen / Unknown 03/18/2025 9:29 AM EDT 03/18/2025 9:29 AM EDT Narrative [facility] - 03/19/2025 5:06 AM EDT FASTING:YES FASTING: YES Resulting Agency Comment Performing Organization Information Site ID: QPT Name: [facility] Address: [address] [place] [phone] Director: Davion Day MD us Huber Henning MD LAB BLOOD ORDERABLES Final Res ult [facility] * Lipid panel (03/18/2025 9:29 AM EDT) CHOLESTEROL, TOTAL 168 <200 mg/dL [facility] HDL CHOLESTEROL 93 > OR = 40 mg/dL [facility] TRIGLYCERIDES 64 <150 mg/dL [facility] LDL CHOLESTEROL 61 mg/dL (calc) [facility] Comment: Reference range: <100 Desirable range <100 mg/dL for primary prevention; <70 mg/dL for patients with CHD or diabetic patients with > or = 2 CHD risk factors. LDL-C is now calculated using the Farhad calculation, which is a validated novel method providing better accuracy than the Friedewald equation in the estimation of LDL-C. Rayray STARK et al. ZHENG. 2013;310(19): 8279-7808 (http://education.Metrigo.1Mind/faq/BIB017) CHOL/HDLC RATIO 1.8 <5.0 (calc) [facility] NON HDL CHOLESTEROL 75 <130 mg/dL (calc) [facility] Comment: For patients with diabetes plus 1 major ASCVD risk factor, treating to a non-HDL-C goal of <100 mg/dL (LDL-C of <70 mg/dL) is considered a therapeutic option. Blood Venous blood specimen / Unknown 03/18/2025 9:29 AM EDT 03/18/2025 9:29 AM EDT Narrative [facility] - 03/19/2025 5:06 AM EDT FASTING:YES FASTING: YES Resulting Agency Comment Performing Organization Information Site ID: QPT Name: [facility] Address: [address] [place] [address], [address] [place] [phone] Director: Davion Day MD Huber Henning MD LAB BLOOD ORDERABLES Final Res ult [facility] * (ABNORMAL) Comprehensive metabolic panel (03/18/2025 9:29 AM EDT) [facility] Glucose 86 65 - 99 mg/dL [facility] Comment: Fasting reference interval BUN 17 7 - 25 mg/dL [facility] Creatinine 1.32(H) 0.70 - 1.22 mg/dL [facility] EGFR 55(L) > OR = 60 mL/min/1.7 3m2 [facility] BUN/CREATININE RATIO 13 6 - 22 (calc) [facility] Sodium 140 135 - 146 mmol/L [facility] Potassium, Bld 4.3 3.5 - 5.3 mmol/L [facility] Chloride 106 98 - 110 mmol/L [facility] Carbon Dioxide 23 20 - 32 mmol/L [facility] Calcium 9.9 8.6 - 10.3 mg/dL [facility] PROTEIN, TOTAL 6.2 6.1 - 8.1 g/dL [facility] ALBUMIN 4.2 3.6 - 5.1 g/dL [facility] GLOBULIN 2.0 1.9 - 3.7 g/dL (calc) [facility] ALBUMIN/GLOBULIN RATIO 2.1 1.0 - 2.5 (calc) [facility] BILIRUBIN, TOTAL 0.8 0.2 - 1.2 mg/dL [facility] ALKALINE PHOSPHATASE 59 35 - 144 U/L [facility] AST 27 10 - 35 U/L [facility] ALT 16 9 - 46 U/L [facility] Blood Venous blood specimen / Unknown 03/18/2025 9:29 AM EDT 03/18/2025 9:29 AM EDT Narrative [facility] - 03/19/2025 5:06 AM EDT FASTING:YES FASTING: YES Resulting Agency Comment Performing Organization Information Site ID: QPT Name: [facility] Address: [address] [place] [address], [address] [place] [phone] Director: Davion Day MD us Huber Henning MD LAB BLOOD ORDERABLES Final Res ult [facility] * POCT Glycated hemoglobin, total (05/24/2023 8:58 AM EDT) Hemoglobin A1C 5.6 Blood 05/24/2023 8:58 AM EDT us Huber Henning MD POINT OF CARE TEST ENTER/EDIT ORDERABLES Final Result * Color Fundus Photography - OU - Both Eyes (12/29/2019 12:00 PM EDT) Anatomical Region Laterality Modality Head Fundus Photograp hy 12/29/2019 12:0 0 PM EDT Narrative 12/29/2019 12:00 PM EDT PERFORMED AT [facility] LOCATION:[id number] [facility] Procedure Note CONVERSION, GENERIC - 01/03/2023 PERFORMED AT [facility] LOCATION:[id number] [facility] us Huber Henning MD OPHTH PHOTOGRAPHY Final Result * (ABNORMAL) Microalbumin / creatinine urine ratio (01/15/2019) UCREA 37(L) 39 - 259 [facility] MALB <1.2(L) [facility] Comment: Unable to calculate mALB/Crea ratio, mALB is <1.2 mg/dL mALB reference range not established. 01/15/2019 Huber Henning MD LAB URINE ORDERABLES Final Res ult [facility] from Last 3 Months or Most Recently Relevant to Health Maintenance Insurance [employer] Care Teams Rf Test Engineer Relationship Specialty Start Date End Date Huber Henning MD [address] [facility] [address] [place] [address] PCP - General Internal Medicine 02/21/23 Huber Henning MD [address] [facility] 110 [place] [address] PCP - Sravani SALINAS 03/20/24
--- OUTSIDE RECORDS SUMMARY | 2025-05-06 15:35 | XMS_ITS | Encounter Summary ---
Author Organization [facility] Address [address] [place] [address] Phone Care Team Providers Care Oil Recovery Unit Operator Name Role Phone Huber Henning MD Primary Care Provider [phone] Encounter Details Date Type Department Care Team (Late st Contact Info) Description 04/29/2025 Orders Only [facility] [address] [place] [address] Lizzeth Sanchez MD 703 [facility] 2, [address] [address] Social History Tobacco Use Types Packs/Day Years [...] Description 07/23/2025 12:50 PM EST Office Visit [facility] [address] [phone] Lizzeth Sanchez MD 703 [facility] 2, [address] [address] documented as of this encounter Procedures Procedure Name Priority Date/Time Associated Diagnosis Comments TRANSESOPHAGEAL ECHO 04/29/2025 11:28 AM EDT documented in this encounter Results * Transesophageal Echo (04/29/2025 11:28 AM EDT) 04/29/2025 11:2 8 AM EDT [facility] - 04/30/2025 12:30 PM EDT [facility] Main [place] [address] [place], [place] [phone] Echocardiogram Signed Patient: Blake Gutierrez MR#: [id number] 54 : 1945 Acct:[id number] Age/Sex: 79 / M ADM Date: 04/29/25 Loc: Room: Type: [facility] Attending Dr: Lizzeth Sanchez MD Ordering Provider: [...] MD CV ECHO PROCEDURES Final R esult [facility] [address] [place] [address], documented in this encounter Visit Diagnoses Not on filedocumented in this encounter Additional Health Concerns Assessment Noted Time A fall risk assessment has been complete d for the patient 04/02/2025 1:42 PM EDT documented as of this encounter Care Teams Oil Recovery Unit Operator Relationship Specialty Start Date End Date Huber Henning MD [address] [facility] [address] [place] [address] PCP - General Internal Medicine 03/18/25 documented as of this encounter
--- OUTSIDE RECORDS SUMMARY | 2025-05-06 15:35 | XMS_ITS | Encounter Summary ---
Author Organization [facility] Address [address] [place] [address] Phone Care Team Providers Care Educational Administrator Name Role Phone Huber Henning MD Primary Care Provider [phone] Encounter Details Date Type Department Care Team (Late st Contact Info) Description 01/09/2025 Scanned Document [facility] [address] [place] [id number] Scanning, Generic Provider Social History Tobacco Use [...] Description 07/23/2025 12:50 PM EST Office Visit [facility] [address] [address] Lizzeth Sanchez MD 703 [facility] [address], [address] [address] documented as of this encounter Procedures Procedure Name Priority Date/Time Associated Diagnosis Comments ECHOCARDIOGRAM 01/09/2025 documented in this encounter Results * Echocardiogram (01/09/2025) Narrative 01/09/2025 Ordered by an unspecified provider. us Generic Provider Scanning CV ECHO PROCEDURES Fin al Result documented in this encounter Visit Diagnoses Not on filedocumented in this encounter Care Teams Educational Administrator Relationship Specialty Start Date End Date Huber Henning MD 112 [facility] 110 [place] [address] PCP - General Internal Medicine 03/18/25 documented as of this encounter
--- OUTSIDE RECORDS SUMMARY | 2025-05-06 15:35 | XMS_ITS | Encounter Summary ---
Author Organization [facility] Address [address] [facility] [place] [address] Care Team Providers Care Manager Transfer Name Role Phone Huber Henning MD Primary Care Provider [phone] Huber Henning MD Unavailable [phone] Huber Henning MD Unavailable [phone] Huber Henning MD Unavailable [phone] Encounter Details Date Type Department Care Team (Late st Contact Info) Description 02/20/2023 Abstract [facility] [place] [facility] [address] [facility] 110 [place] [address] Huber Henning MD [address] [facility] 110 [place], [place] [id number] Social History Tobacco Use Types Packs/Day Years Used Date Smoking Tobacco: Never Smokeless Tobacco: Never PHQ-2 Answer Date Recorded Patient Health Questionnaire-2 [...] pleasure in doing things Not at all 02/21/2023 8:00 AM Sahra Ralph LP N Feeling down, depressed, or hopeless Not at all 02/21/2023 8:00 AM ALMA ROSAT Sahra Chery LP N Patient Health Questionnaire -2 Score 0 02/21/2023 8:00 AM ALMA ROSAT Sahra Chery LP N documented as of this encounter Plan of Treatment Upcoming Encounters Date Type Department Care Team (Late st Contact Info) Description 05/22/2025 8:30 AM EDT Office Visit [facility] [address] [place] [address] [place] [address] Huber Henning MD [address] [place] [address] [place] [address] 06/15/2025 9:30 AM EDT Office Visit [facility] [address] [place] [address] Renetta Armas PA [address] [place] [address] documented as of this encounter Visit Diagnoses Not on filedocumented in this encounter Care Teams Manager Transfer Relationship Specialty Start Date End Date Huber Henning MD [address] [place] [address] [place] [address] PCP - General Internal Medicine 02/21/23 Huber Henning MD [address] [place] [address] [place] [address] PCP - ACO Reach 10/19/23 09/25/24 Huber Henning MD [address] [place] [address] [place] [address] PCP - Sravani SALINAS 03/20/24 Huber Henning MD [address] [facility] [address] [place] [address] PCP - ACO Reach 10/03/24 11/20/24 documented as of this encounter
--- OUTSIDE RECORDS SUMMARY | 2025-05-06 15:35 | XMS_ITS | Encounter Summary ---
Author Organization [facility] Address [address] [place] [address] Phone Care Team Providers Care Associate Professor Of Theology Name Role Phone Huber Henning MD Primary Care Provider [phone] Encounter Details Date Type Department Care Team (Late st Contact Info) Description 04/30/2025 Telephone [facility] Primary [facility] [address] [place] [address] Lizzeth Sanchez MD 703 [facility] 2, [address] [place] [address] Social History Tobacco Use Types Packs/Day [...] on file documented as of this encounter Miscellaneous Notes * Telephone Encounter - Arely Barajas - 04/30/2025 11:57 AM EDT I called Linda and rosi Hartman members insurance shows that post testing can not be authorized, so I called provider services and he stated the same thing retro auth is not an option on this members plan per Bhupinder Lassiter call ref# [id number] this was for [id number] that was done at [facility] on 04/29/25 documented in this encounter Plan of Treatment Upcoming Encounters Date Type Department Care Team (Late st Contact Info) Description 07/23/2025 12:50 PM EST Office Visit [facility] 703 [facility] [address] [place] [phone] Lizzeth Sanchez MD 703 [facility] [address], [address] [place] [address] documented as of this encounter Visit Diagnoses Not on filedocumented in this encounter Additional Health Concerns Assessment Noted Time A fall risk assessment has been complete d for the patient 04/02/2025 1:42 PM EDT documented as of this encounter Care Teams Associate Professor Of Theology Relationship Specialty Start Date End Date Huber Henning MD 112 [facility] 110 [place] [address] PCP - General Internal Medicine 03/18/25 documented as of this encounter
[2025-05-06 16:37] LABS: Prostate Specific Antigen Dx <0.13 ng/mL (<=4.00)
--- OUTSIDE RECORDS SUMMARY | 2025-05-06 16:59 | XMS_ITS | CCD ---
Author Organization [facility] Care Team Providers Care 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 Name Role Phone HUBER HENNING Primary Care Physician CLEMENTINE ANDERSON Admitting Unavailable CLEMENTINE ANDERSON Attending Unavailable CHRISTIAN, DR SILKE Allen Consulting Unavailable JUVENCIO, DR LOPEZ Primary Care Unavailable GUERO, DR TRUDY Snell Consulting Unavailable ZIEBGERMANIA, DR EZEKIEL Allen Consulting Unavailable DC BRITTON Consulting Unavailable CLEMENTINE ANDERSON Consulting Unavailable SCHRESUKH ARANGO Consulting Unavailable FAWSHAIKH Mona THOMAS Consulting Unavailable CHIQUITA, DR SYDNEE Zhang Admitting Unavailable JUVENCIO, DR LOPEZ Primary Care Unavailable CHIQUITA, DR SYDNEE Zhang Attending Unavailable CHIQUITA, DR SYDNEE Zhang Consulting Unavailable CHRISTIAN, DR SILKE Allen Admitting Unavailable VIDHYA, DR NOLEN Consulting Unavailable CHRISTIAN, DR SILKE Allen Attending Unavailable JUVENCIO, DR LOPEZ Primary Care Unavailable GENTRY ROSE Consulting Unavailable Juvencio ROSAS MD, Daniel B Primary Care Provider Juvencio ROSAS MD, Daniel B Primary Care Provider [phone] Karthik VAZ Referring Unavailable Karthik VAZ Attending Unavailable HUBER HENNING II Primary Care Unavailable Huber Henning MD Primary Care Provider Huber Henning MD Unavailable Huber Henning MD Unavailable [phone] Vamsi AYALA Attending Unavailable Vamsi AYALA Attending Unavailable Vamsi AYALA Attending Unavailable Huber Henning II Primary Care Provider Huber Henning II Attending Provider HUBER HENNING Attending Unavailable HUBER HENNING Attending Unavailable FANTASMA RANDOLPH Attending Unavailable FANTASMA RANDOLPH Attending Unavailable FANTASMA RANDOLPH Referring Unavailable HUBER HENNING Attending Unavailable Huber Henning MD Primary Care Provider Huber Henning II Primary Care Provider Amrit Sanchez MD Attending Provider Amrit Sanchez MD Referring Provider Huber Henning Admitting Unavailable Huber Henning Primary Care Unavailable Huber Henning Attending Unavailable Amrit Sanchez Attending Unavailable Amrit Sanchez Referring Unavailable Huber Henning Primary Care Unavailable Amrit Sanchez Admitting Unavailable AMRIT SANCHEZ Attending Unavailable HUBER HENNING Primary Care Unavailable Allergies Allergy Classification Reported Allergen(s) Allergy Type Date of Onset Reaction(s) Facility (1 source) No Known Medication Allergies; Translations: [No Known Medication Allergies] Propensity to adverse reactions (disorder) [facility] Repository Medications Current Medications Medication Drug Class(es) Dates Sig (Normalized) Sig (Original) amLODIPine 2.5 mg oral tablet (20 sources) Dihydropyridine Calcium Channel Brett Start: 04-17-2025 take 1 tablet by mouth once daily Amlodipine 2.5 mg tablet Active 2.5 MG PO Daily April 29, 2025 12:00am Complies with drug therapy Start: 12-20-2017 take 1 tablet by miladis th once daily amLODIPine (Norvasc) 2.5 mg tablet Take 1 tablet (2.5 mg) by mouth once daily. 04/29/2024 Active Comment on above: Take 2.5 mg by mouth once daily. aspirin 81 mg oral tablet (20 sources) Platelet Aggregation Inhibitor, Nonsteroidal Anti-inflammatory Drug Start: 02-18-2018 take 1 tablet by mouth once daily aspirin 81 mg oral tablet 81 mg = 1 tab(s), Oral, Daily, Prophylaxis Start Date: 02/18/18 Status: Ordered take 1 tablet by mouth in the mo rning aspirin 81 MG EC tablet Take 81 mg by mouth in the morning. Active Comment on above: Take 81 mg by mouth once daily. betamethasone 0.5 mg/ml / clotrimazole 10 mg/ml topical cream (15 sources) Azole Antifungal, Corticosteroid Start: 05-11-20 clotrimazole-betam ethasone (Lotrisone) cream Apply 1 application topically in the morning. 05/11/2022 Active calcium (as carbonate)-vitamin D 600 mg-125 units oral tablet (2 sources) Start: 02-19-20 take 1 tablet by mouth once daily calcium (as carbonate)-vitamin D 600 mg-125 units oral tablet 1 tab(s), Oral, Daily, Prophylaxis Start Date: 02/18/18 Status: Ordered calcium carbonate 1500 mg / cholecalciferol 200 unt oral capsule (6 sources) Vitamin D Start: 04-29-20 take 1 capsule by mouth once daily Calcium Carbonate-Vitamin D3 600 mg-5 mcg (200 unit) capsule Active 1 CAP PO Daily April 29, 2025 12:00am Complies with drug therapy Calcium Carbonat e-Vit D-Min (GNP Calcium Plus 600 +D) 600-200 MG-UNIT tablet every 12 (twelve) hours. Active take 1 tablet by mouth once [place] calcium carbonate-vitamin D3 600 mg-5 mcg (200 unit) tablet Take 1 tablet by mouth once daily. Active calcium carbonate 1500 mg / ergocalciferol 125 mg oral tablet (2 sources) Provitamin D2 Compound Start: 02-18-2018 take 1 tablet by mouth once daily calcium (as carbonate)-vitamin D 600 mg-125 units oral tablet 1 tab(s), Oral, Daily, Prophylaxis Start Date: 02/18/18 Status: Ordered Calcium Carbonate / vitamin D3 (4 sources) calcium carbonate/vitamin D3 (CALCIUM 600 + D,3, ORAL) Take by mouth. Active calcium carbonat e/vitamin D3 (CALCIUM 600 + D,3, ORAL) Take by mouth. 0 Active Comment on above: Take by mouth. Calcium Carbonate-Vit D-Min (GNP Calcium Plus 600 +D) 600-200 MG-UNIT tablet (11 sources) Calcium Carbonate-Vit D-Min (GNP Calcium Plus 600 +D) 600-200 MG-UNIT tablet every 12 (twelve) hours. Active Fish Oils (1 source) Start: 07-28-2024 Fish Oil See Instructions, Refill(s) 0 Start Date: 07/28/24 Status: Ordered furosemide 20 mg oral tablet (4 sources) Loop Diuretic take 1 tablet by mouth twice daily furosemide (LASIX) 20 mg tablet Take 20 mg by mouth twice daily. Active Comment on above: Take 20 mg by mouth twice daily. gluc solomon/chondro solomon A/vit C/Mn (GLUCOSAMINE 1500 COMPLEX ORAL) (4 sources) gluc solomon/chondro solomon A/vit C/Mn (GLUCOSAMINE 1500 COMPLEX ORAL) Take by mouth. Active gluc solomon/chondro solomon A/vit C/Mn (GLUCOSAMINE 1500 COMPLEX ORAL) Take by mouth. 0 Active Comment on above: Take by mouth. glucosamine sulfate 500 mg oral capsule (20 sources) Start: 04-29-2025 take 1 capsule by mouth once daily Glucosamine Sulfate 500 mg capsule Active 500 MG PO Daily April 29, 2025 12:00am administer with a meal Complies with drug therapy Start: 02-18-2018 take 1 capsule by mo uth once daily glucosamine 500 mg Cap 500 mg = 1 cap(s), Oral, Daily, Prophylaxis Start Date: 02/18/18 Status: Ordered Glucosamine Sulf ate 500 MG tablet 1 (one) time each day at the same time. Active lisinopril 20 mg oral tablet (20 sources) Angiotensin Converting Enzyme Inhibitor Start: 05-24-2023 End: 05-23-2024 take 1 tablet by mouth in the morning lisinopril 20 MG tablet Indications: Essential (primary) hypertension Take 1 tablet (20 mg) by mouth in the morning. 90 tablet 3 05/24/2023 Active Start: 12-20-2017 take 1 tablet by miladis th once daily lisinopril 40 mg Tab 40 mg = 1 tab(s), Oral, Daily, High blood pressure Start Date: 02/18/18 Status: Ordered Comment on above: Take 40 mg by mouth once daily. meloxicam 15 mg oral tablet (20 sources) Nonsteroidal Anti-inflammatory Drug Start: 12-15-2024 take 1 tablet by mouth once daily Meloxicam 15 mg tablet Active 15 MG PO Daily April 29, 2025 12:00am Complies with drug therapy Start: 12-20-2017 take 1 tablet by miladis th once daily at mealtime meloxicam (Mobic) 15 MG tablet Indications: Other chronic pain TAKE 1 TABLET BY MOUTH DAILY WITH FOOD 30 tablet 13 12/04/2023 Active Comment on above: Take 15 mg by mouth once daily. Multiple Vitamin (multivitamin) capsule (15 sources) Multiple Vitamin (multivitamin) capsule Daily. Active Multivitamin, Therapeutic w/ Minerals (4 sources) Start: take 1 tablet by mouth once daily Multivitamin, Therapeutic w/ Minerals 1 tab(s), Oral, Daily, Prophylaxis Start Date: 02/18/18 Status: Ordered omega 0-gvq-lqs-fish oil (Fish OiL) 1,200 (144-216) mg capsule (1 source) Start: 4 take 1 capsule by mouth once daily omega 2-mra-xig-fish oil (Fish OiL) 1,200 (144-216) mg capsule Take 1 capsule (1,200 mg) by mouth once daily. 07/28/2024 Active [place]-3 Fatty Acids (1 source) Start: 5 take 1 capsule by mouth once daily [place]-3 Fatty Acids 1,250 mg capsule Active 1250 MG PO Daily April 29, 2025 12:00am Complies with drug therapy omeprazole 40 mg delayed release oral capsule (20 sources) Proton Pump Inhibitor Start: 5 take 1 capsule by mouth once daily Omeprazole 40 mg capsule,delayed release(DR/EC) Active 40 MG PO Daily April 29, 2025 12:00am Complies with drug therapy Start: 12-18-2018 take 1 capsule by mo [facility] once daily omeprazole 40 mg Cap-DR 40 mg = 1 cap(s), Oral, Daily, Refills(s) 0, Other (see comment) Start Date: 12/18/18 Status: Ordered Comment on above: Take 40 mg by mouth once daily. omeprazole 40 mg Cap-DR (1 source) Start: 12-18-2018 take 1 capsule by mouth once daily omeprazole 40 mg Cap-DR 40 mg = 1 cap(s), Oral, Daily, Refills(s) 0, Other (see comment) Start Date: 12/18/18 Status: Ordered predniSONE 5 mg oral tablet (20 sources) Start: 04-29-2025 take 1 tablet by mouth once daily Prednisone 5 mg tablet Active 5 MG PO daily April 29, 2025 12:00am Complies with drug therapy Start: 01-08-2025 take 1 tablet by miladis th once daily predniSONE (Deltasone) 10 MG tablet Indications: Polymyalgia rheumatica (HHS-HCC) TAKE 1 TABLET BY MOUTH EVERY DAY 30 tablet 4 01/08/2025 Active Start: 01-08-2025 take 1 tablet by miladis th once daily predniSONE (Deltasone) 5 mg tablet Take 1 tablet (5 mg) by mouth once daily. 01/08/2025 Active Start: 12-20-2017 take 1 tablet by miladis th once daily predniSONE (Deltasone) 10 MG tablet Indications: Polymyalgia rheumatica (CMS/HCC) TAKE 1 TABLET BY MOUTH EVERY DAY 30 tablet 4 04/22/2024 Active Start: 12-20-2017 take 5 mg by mouth once daily predniSONE (DELTASONE) 10 mg tablet Take 5 mg by mouth once daily. 3 12/20/2017 Active Comment on above: Take 10 mg by mouth once daily. Take 5 mg by mouth o nce daily. simvastatin 40 mg oral tablet (20 sources) HMG-CoA Reductase Inhibitor Start: 8 take 1 tablet by mouth once daily Simvastatin 40 mg tablet Active 40 MG PO Daily April 29, 2025 12:00am Complies with drug therapy Comment on above: Take 40 mg by mouth daily at bedtime. tiZANidine 4 mg oral tablet (6 sources) Central alpha-2 Adrenergic Agonist Start: 5 End: 5 take 1 tablet by mouth every eight hours for muscle spasms tiZANidine (Zanaflex) 4 MG tablet Indications: Trapezius muscle spasm Take 1 tablet (4 mg) by mouth every 8 (eight) hours if needed for muscle spasms for up to 20 days 30 tablet 1 11/28/2024 Active Completed/Discontinued Medications Medication Drug Class(es) Dates Sig (Normalized) Sig (Original) multivitamin (DAILY MULTIPLE) tablet (2 sources) End: 04-11-2023 take 1 tablet by mouth once daily multivitamin (DAILY MULTIPLE) tablet Take 1 tablet by mouth once daily. 0 04/11/2023 Discontinued (Discontinued by Patient) take 1 tablet by mouth once africa y multivitamin (DAILY MULTIPLE) tablet Take 1 tablet by mouth once daily. 0 Active Comment on above: Take 1 tablet by miladis th once daily. Problems Active Problems Problem Classification Problem Date Documented Date Episodic/Chronic Administrative/social admission (2 sources) Patient encounter status; Translations: [Other specified counseling] 08-28-2024 Episodic Cancer of prostate (20 sources) Malignant tumor of prostate; Translations: [Malignant neoplasm of prostate] Onset: 01-22-2018 02-19-2020 Chronic Chronic kidney disease (2 sources) Chronic kidney disease stage 2; Translations: [Chronic kidney disease, stage 2 (mild)] 08-28-2024 Chronic Coagulation and hemorrhagic disorders (1 source) Thrombocytopenia, unspecified; Translations: [THROMBOCYTOPENIA UNSPECIFIED] Onset: 06-09-2021 Chronic Diabetes mellitus with complications (2 sources) Chronic kidney disease due to type 2 diabetes mellitus; Translations: [Type 2 diabetes mellitus with diabetic chronic kidney disease] 08-28-2024 Chronic Disorders of lipid metabolism (20 sources) Hypercholesterolemia ; Translations: [Pure hypercholesterolemia , unspecified] Onset: 06-09-2021 02-18-2019 Chronic E Codes: Natural/environment (1 source) Other and unspecified overexertion or strenuous movements or postures, initial encounter; Translations: [OTH AND UNS OVREXRT/STRN MVMT/POS INT] Onset: 12-14-2021 Episodic Esophageal disorders (15 sources) Gastro-esophageal reflux disease with esophagitis; Translations: [Gastroesophageal reflux disease with esophagitis without hemorrhage] Onset: 02-09-2023 02-09-2023 Chronic Essential hypertension (20 sources) Hypertensive disorder; Translations: [Essential (primary) hypertension] Onset: 06-09-2021 Resolved: 02-25-2024 02-18-2019 Chronic Genitourinary symptoms and ill-defined conditions (20 sources) Urge incontinence; Translations: [Urge incontinence of urine] Onset: 12-26-2021 Chronic Heart valve disorders (15 sources) Non-rheumatic mitral regurgitation ; Translations: [Nonrheumatic mitral (valve) insufficiency] Onset: 04-02-2025 03-18-2025 Chronic Heart valve disorders (4 sources) Systolic murmur; Translations: [Cardiac murmur, unspecified] 11-28-2024 Episodic Hyperplasia of prostate (20 sources) Benign prostatic hypertrophy with outflow obstruction; Translations: [Benign prostatic hyperplasia with lower urinary tract symptoms] Onset: 12-26-2021 Chronic Neoplasms of unspecified nature or uncertain behavior (4 sources) Neoplasm of uncertain behavior of skin of face; Translations: [Neoplasm of uncertain behavior of skin] 03-18-2025 Episodic Osteoarthritis (20 sources) Primary osteoarthritis, left shoulder; Translations: [Arthropathy, unspecified, shoulder region] Onset: 12-08-2011 06-26-2024 Chronic Other aftercare (1 source) manager terminal (current) use of aspirin; Translations: [ROBOTIC WELDER CURRENT USE OF ASPIRIN] Onset: 12-14-2021 Episodic Other aftercare (1 source) Other exterminator (current) drug therapy; Translations: [OTH ROBOTIC WELDER CURRENT DRUG THERAPY] Onset: 12-14-2021 Episodic Other connective tissue disease (20 sources) Polymyalgia rheumatica; Translations: [Polymyalgia rheumatica] Onset: 02-09-2023 02-18-2018 Chronic Other connective tissue disease (1 source) Polymyalgia rheumatica; Translations: [POLYMYALGIA RHEUMATICA] Onset: 06-09-2021 Chronic Other connective tissue disease (2 sources) History of reverse prosthetic total arthroplasty of left shoulder; Translations: [Presence of left artificial shoulder joint] 06-26-2024 Chronic Other connective tissue disease (2 sources) Muscle spasm of cervical muscle of neck; Translations: [Other muscle spasm] 11-28-2024 Episodic Other diseases of kidney and ureters (1 source) Urinary tract obstruction; Translations: [Other obstructive and reflux uropathy] Onset: 12-26-2021 Episodic Other lower respiratory disease (1 source) Personal history of pneumonia (recurrent); Translations: [PERSONAL HX OF PNEUMONIA RECURRENT] Onset: 12-14-2021 Episodic Other lower respiratory disease (4 sources) Dyspnea on exertion; Translations: [Other forms of dyspnea] 11-28-2024 Episodic Other nervous system disorders (15 sources) Chronic pain; Translations: [Other chronic pain] Onset: 02-19-2023 02-19-2023 Chronic Other non-traumatic joint disorders (15 sources) Rotator cuff arthropathy of right shoulder; Translations: [Other specific arthropathies, not elsewhere classified, right shoulder] Onset: 02-19-2023 02-19-2023 Chronic Other non-traumatic joint disorders (4 sources) Pain in left shoulder; Translations: [PAIN IN LEFT SHOULDER] Onset: 12-13-2021 Episodic Other nutritional; endocrine; and metabolic disorders (1 source) Hypocalcemia; Translations: [HYPOCALCEMIA] Onset: 06-09-2021 Chronic Other nutritional; endocrine; and metabolic disorders (2 sources) Body mass index 30+ - obesity; Translations: [Body mass index (BMI) 31.0-31.9, adult] Onset: 04-02-2025 04-02-2025 Chronic Other nutritional; endocrine; and metabolic disorders (2 sources) Body mass index (BMI) 31.0-31.9, adult; Translations: [Body mass index (BMI) 31.0-31.9, adult] Onset: 04-02-2025 Chronic Other upper respiratory disease (15 sources) Allergic rhinitis; Translations: [Allergic rhinitis, unspecified] Onset: 02-19-2023 02-19-2023 Chronic Pneumonia (except that caused by tuberculosis or sexually transmitted disease) (1 source) Pneumonia (except that caused by tuberculosis or sexually transmitted disease); Translations: [PNEUMONIA D/T CORONAVIRUS DIS 2018] Onset: 06-09-2021 Residual codes; unclassified (2 sources) Never smoked tobacco; Translations: [Other specified health status] Onset: 04-02-2025 04-02-2025 Episodic Residual codes; unclassified (2 sources) Other specified health status; Translations: [Other specified health status] Onset: 04-02-2025 Episodic Sprains and strains (1 source) Strain of unspecified muscle, fascia and tendon at shoulder and upper arm level, left arm, initial encounter; Translations: [STRN UNS MSC F TND SHLDR UA LA INIT] Onset: 12-14-2021 Episodic Unclassified (4 sources) Finding of sensation of bladder 01-23-2019 Unclassified (1 source) PERSONAL HISTORY OF COVID-19; Translations: [PERSONAL HISTORY OF COVID-19] Onset: 12-14-2021 Unclassified (3 sources) Mild aortic stenosis 04-02-2025 Viral infection (3 sources) COVID-19; Translations: [COVID-19] Onset: 05-25-2021 Past or Other Problems Problem Classification Problem Date Documented Da te Episodic/Chronic Acute and unspecified renal failure (1 source) Acute kidney failure, unspecified; Translations: [ACUTE KIDNEY FAILURE UNSPECIFIED] Onset: 06-09-2021 Episodic Cancer of prostate (20 sources) Personal history of malignant neoplasm of prostate; Translations: [History of malignant neoplasm of prostate] Onset: 02-07-2021 Episodic Deficiency and other anemia (1 source) Anemia, unspecified; Translations: [ANEMIA UNSPECIFIED] Onset: 06-09-2021 Episodic Deficiency and other anemia (15 sources) Anemia; Translations: [Anemia, unspecified] Onset: 08-02-2011 02-19-2023 Episodic Diabetes mellitus without complication (15 sources) Type 2 diabetes mellitus without complication; Translations: [Type 2 diabetes mellitus without complications] Onset: 02-09-2023 Resolved: 10-29-2023 10-29-2023 Chronic Fluid and electrolyte disorders (15 sources) Hyponatremia; Translations: [Hypo-osmolality and hyponatremia] Onset: 02-09-2023 02-09-2023 Episodic Genitourinary symptoms and ill-defined conditions (20 sources) Nocturia; Translations: [Nocturia] Onset: 12-26-2021 Episodic Other gastrointestinal disorders (15 sources) Esophageal dysphagia; Translations: [Other dysphagia] Onset: 02-19-2023 02-19-2023 Episodic Other lower respiratory disease (1 source) Other forms of dyspnea; Translations: [Other forms of dyspnea] Onset: 01-09-2025 Episodic Other non-epithelial cancer of skin (20 sources) Basal cell carcinoma of upper extremity; Translations: [Basal cell carcinoma of skin of right upper limb, including shoulder] Onset: 03-02-2020 02-19-2023 Episodic Other non-traumatic joint disorders (15 sources) Disorder of shoulder; Translations: [Joint disorder, unspecified] Onset: 02-19-2023 02-19-2023 Episodic Other screening for suspected conditions (not mental disorders or infectious disease) (20 sources) Raised prostate specific antigen; Translations: [Other specified abnormal findings of blood chemistry] Onset: 06-09-2021 02-19-2020 Episodic Residual codes; unclassified (15 sources) Edema; Translations: [Edema, unspecified] Onset: 02-19-2023 02-19-2023 Episodic Respiratory failure; insufficiency; arrest (adult) (1 source) Acute respiratory failure with hypoxia; Translations: [ACUTE RESPIRATORY FAIL W/HYPOXIA] Onset: 06-09-2021 Episodic Unclassified (1 source) Onset: 04-02-2025 04-02-2025 Results Test Name Value Interpretation Reference Range Facility MHPT PSA, DIAGNOSTICon 05-06 PROSTATE SPECIFIC ANTIGEN DX <0.13 NINF - 4.00 ng/mL [facility] echo transesophageal FREDI on 04-29-2025 [facility] echo transesophageal FREDI [place] [address] Echocardiogram Signed Patient: Blake Gutierrez MR#: [id number] 54 : 1945 Acct:[id number] Age/Sex: 79 / M ADM Date: 04/29/25 Loc: Room: Type: [facility] Attending Dr: Amrit Sanchez MD Ordering Provider: Amrit Sanchez MD Date of Service: 04/29/25/ [facility] echo transesophageal FREDI: Copies to: Amrit Sanchez MD RVT BSA: 2.0 m2 BP: [...] There is trace tricuspid regurgitation. Transcribed By: ANJUM Performed At: 04/29/25 1128 Signed By: Amrit Sanchez MD 04/30/25 1230 Normal [facility] ECG 12 [place] 04-02-2025 Normal sinus rhythm [facility] Work Phone: CBC (INCLUDES DIFF/PLT)on Basophils (Bld) [#/Vol] 0.061 10*3/uL Normal 0-200 [facility] Comment on above: Performed By: #### 1 0231, 6399, 7600 #### [facility] of [place] [address] Secy: Davion Day MD Basophils/100 WBC (Bld) 0.9 % Normal [facility] Comment on above: Performed By: #### 1 0231, 63, 7600 #### [facility] [place] [address] Secy: Davion Day MD Eosinophils (Bld) [#/Vol] 0.578 10*3/uL High 15-500 [facility] Comment on above: Performed By: #### 1 230, 63, 7600 #### [facility] [place] [address] Secy: Davion Day MD Eosinophils/100 WBC (Bld) 8.5 % Normal [facility] Comment on above: Performed By: #### 1 023, 63, 7600 #### [facility] [place] [address] Secy: Davion Day MD Erythrocyte distribution width (RBC) [Ratio] 12.2 % Normal 11.0-15.0 [facility] Comment on above: Performed By: #### 1 023, 63, 7600 #### [facility] [place] [address] Secy: Davion Day MD Hematocrit (Bld) [Volume fraction] 37.1 % Low 38.5-50.0 [facility] Comment on above: Performed By: #### 1 023, 63, 7600 #### [facility] [place] [address] Secy: Davion Day MD Hemoglobin (Bld) [Mass/Vol] 12.0 g/dL Low 13.2-17.1 [facility] Comment on above: Performed By: #### 1 023, 63, 7600 #### [facility] [place] [address] Secy: Davion Day MD Lymphocytes (Bld) [#/Vol] 1.428 10*3/uL Normal 850-3900 [facility] Comment on above: Performed By: #### 1 023, 63, 7600 #### [facility] of [address], [address] [place] [address] Secy: Davion Day MD Lymphocytes/100 WBC (Bld) 21.0 % Normal [facility] Comment on above: Performed By: #### 1 023, 63, 7600 #### [facility] [place] [address] Secy: Davion Day MD MCH (RBC) [Entitic mass] 32.0 pg Normal 27.0-33.0 [facility] Comment on above: Performed By: #### 1 023, 63, 7600 #### [facility] [place] [address] Secy: Davion Day MD MCHC (RBC) [Mass/Vol] 32.3 g/dL Normal 32.0-36.0 [facility] Comment on above: Result Comment: For adults, a slight decrease in the calculated MCHC value (in the range of 30 to 32 g/dL) is most likely not clinically significant; however, it should be interpreted with caution in correlation with other red cell parameters and the patient's clinical condition. Performed By: #### 1 023, 63, 7600 #### [facility] [place] [address] Secy: Davion Day MD MCV (RBC) [Entitic vol] 98.9 fL Normal 80.0-100.0 [facility] Comment on above: Performed By: #### 1 023, 63, 7600 #### [facility] of [address], [address] [place] [address] Secy: Davion Day MD Monocytes (Bld) [#/Vol] 0.51 10*3/uL Normal 200-950 [facility] Comment on above: Performed By: #### 1 0231, 6399, 7600 #### [facility] of [address], [address] [place] [address] Secy: Davion Day MD Monocytes/100 WBC (Bld) 7.5 % Normal [facility] Comment on above: Performed By: #### 1 0231, 6399, 7600 #### [facility] of [address], [address] [place] [address] Secy: Davion Day MD Neutrophils (Bld) [#/Vol] 4.223 10*3/uL Normal 3630-9929 [facility] Comment on above: Performed By: #### 1 0231, 63, 7600 #### [facility] of [address], [address] [place] [address] Secy: Davion Day MD Neutrophils/100 WBC (Bld) 62.1 % Normal [facility] Comment on above: Performed By: #### 1 0231, 6399, 7600 #### [facility] of [address], [address] [place] [address] Secy: Davion Day MD Platelet mean volume (Bld) [Entitic vol] 11.4 fL Normal 7.5-12.5 [facility] Diagnostics Comment on above: Performed By: #### 1 0231, 6399, 7600 #### [facility] of [address], [address] [place] [address] Secy: Davion Day MD Platelets (Bld) [#/Vol] 147 10*3/uL Normal 140-400 [facility] Comment on above: Performed By: #### 1 0231, 6399, 7600 #### [facility] of [address], [address] [place] [address] Secy: Davion Day MD RBC (Bld) [#/Vol] 3.75 10*6/uL Low 4.20-5.80 [facility] Comment on above: Performed By: #### 1 0231, 6399, 7600 #### [facility] of [address], [address] [place] [address] Secy: Davion Day MD WBC (Bld) [#/Vol] 6.8 10*3/uL Normal 3.8-10.8 [facility] Comment on above: Performed By: #### 1 0231, 6399, 7600 #### [facility] of [address], [address] [place] [address] Secy: Davion Day MD R[employer] [facility] 03-19-2025 Albumin [Mass/Vol] 4.2 g/dL Normal 3.6-5.1 [facility] Comment on above: Performed By: #### 1 0231, 63, 7600 #### [facility] of [address], [address] [place] [address] Secy: Davion Day MD Albumin/Globulin [Mass ratio] 2.1 {ratio} Normal 1.0-2.5 [facility] Comment on above: Performed By: #### 1 0231, 6399, 7600 #### [facility] of [address], [address] [place] [address] Secy: Davion Day MD ALP [Catalytic activity/Vol] 59 U/L Normal 35-144 [facility] Comment on above: Performed By: #### 1 0231, 63, 7600 #### [facility] of [address], [address] [place] [address] Secy: Davion Day MD ALT [Catalytic activity/Vol] 16 U/L Normal 9-46 [facility] Comment on above: Performed By: #### 1 0231, 6399, 7600 #### [facility] of [address], [address] [place] [address] Secy: Davion Day MD AST [Catalytic activity/Vol] 27 U/L Normal 10-35 [facility] Comment on above: Performed By: #### 1 0231, 6399, 7600 #### [facility] [place] [address] Secy: Davion Day MD Bilirubin [Mass/Vol] 0.8 mg/dL Normal 0.2-1.2 [facility] Comment on above: Performed By: #### 1 0231, 63, 7600 #### [facility] [place] [address] Secy: Davion Day MD Calcium [Mass/Vol] 9.9 mg/dL Normal 8.6-10.3 [facility] Comment on above: Performed By: #### 1 0231, 63, 7600 #### [facility] [place] [address] Secy: Davion Day MD Chloride [Moles/Vol] 106 mmol/L Normal 98-110 [facility] Comment on above: Performed By: #### 1 0231, 63, 7600 #### [facility] [place] [address] Secy: Davion Day MD CO2 [Moles/Vol] 23 mmol/L Normal 20-32 [facility] Comment on above: Performed By: #### 1 0231, 63, 7600 #### [facility] [place] [address] Secy: Davion Day MD Creatinine [Mass/Vol] 1.32 mg/dL High 0.70-1.22 [facility] Comment on above: Performed By: #### 1 0231, 6399, 7600 #### [facility] [place] [address] Secy: Davion Day MD GFR/1.73 sq M.predicted among non-blacks MDRD (S/P/Bld) [Vol rate/Area] 55 mL/min/{1.73_m2} Low > OR = 60 [facility] Comment on above: Performed By: #### 1 0231, 63, 7600 #### [facility] of [place] [address] Secy: Davion Day MD Globulin (S) [Mass/Vol] 2.0 g/dL Normal 1.9-3.7 [facility] Comment on above: Performed By: #### 1 0231, 63, 7600 #### [facility] of [place] [address] Secy: Davion Day MD Glucose [Mass/Vol] 86 mg/dL Normal 65-99 [facility] Comment on above: Result Comment: Fasting reference interval Performed By: #### 1 230, 63, 7600 #### [facility] of [place] [address] Secy: Davoin Day MD Potassium [Moles/Vol] 4.3 mmol/L Normal 3.5-5.3 [facility] Comment on above: Performed By: #### 1 023, 63, 7600 #### [facility] [place] [address] Secy: Davion Day MD Protein [Mass/Vol] 6.2 g/dL Normal 6.1-8.1 [facility] Comment on above: Performed By: #### 1 0231, 63, 7600 #### [facility] of [place] [address] Secy: Davion Day MD Sodium [Moles/Vol] 140 mmol/L Normal 135-146 [facility] Comment on above: Performed By: #### 1 0231, 6399, 7600 #### [facility] of [place] [address] Secy: Davion Day MD Urea nitrogen [Mass/Vol] 17 mg/dL Normal 7-25 [facility] Comment on above: Performed By: #### 1 0231, 6399, 7600 #### [facility] [address], [address] [place] [address] Secy: Davion Day MD Urea nitrogen/Creatinine [Mass ratio] 13 mg/mg Normal 6-22 [facility] Comment on above: Performed By: #### 1 0231, 6399, 7600 #### [facility] [address], [address] [place] [address] Secy: Davion Day MD LIPID PANEL, [facility] 07-3 Cholesterol [Mass/Vol] 168 mg/dL Normal <200 [facility] Comment on above: Order Comment: FASTI NG:YES FASTING: YES Performed By: #### 1 0231, 6399, 7600 #### [facility] [address], [address] [place] [address] Secy: Davion Day MD Cholesterol in HDL [Mass/Vol] 93 mg/dL Normal > OR = 40 [facility] Comment on above: Order Comment: FASTI NG:YES FASTING: YES Performed By: #### 1 0231, 6399, 7600 #### [facility] [address], [address] [place] [address] Secy: Davion Day MD Cholesterol in LDL [Mass/Vol] 61 mg/dL Normal [facility] Comment on above: Order Comment: FASTI NG:YES FASTING: YES Result Comment: Refe rence range: <100 Desirable range <100 mg/dL for primary prevention; <70 mg/dL for patients with CHD or diabetic patients with > or = 2 CHD risk factors. LDL-C is now calculated using the Farhad calculation, which is a validated novel method providing better accuracy than the Friedewald equation in the estimation of LDL-C. Rayray SS et al. ZHENG. 2013;310(19): 0772-7994 (http://education.Ease My Sell.Nativoo/faq/NKF996) Performed By: #### 1 0231, 6399, 7600 #### [facility] [address], [address] [place] [address] Secy: Davion Day MD Cholesterol.total/C holesterol in HDL [Mass ratio] 1.8 {ratio} Normal <5.0 [facility] Comment on above: Order Comment: FASTI NG:YES FASTING: YES Performed By: #### 1 0231, 6399, 7600 #### [facility] [address], [address] [place] [address] Secy: Davion Day MD NON HDL CHOLESTEROL 75 mg/dL (calc) Normal <130 [facility] Comment on above: Order Comment: FASTI NG:YES FASTING: YES Result Comment: For patients with diabetes plus 1 major ASCVD risk factor, treating to a non-HDL-C goal of <100 mg/dL (LDL-C of <70 mg/dL) is considered a therapeutic option. Performed By: #### 1 0231, 6399, 7600 #### [facility] [address], [address] [place] [address] Secy: Davion Day MD Triglyceride [Mass/Vol] 64 mg/dL Normal <150 [facility] Comment on above: Order Comment: FASTI NG:YES FASTING: YES Performed By: #### 1 0231, 6399, 7600 #### [facility] [address], [address] [place] [address] Secy: Davion Day MD [facility] echo transthoracicon [facility] echo transthoracic [place] [address] Echocardiogram Signed Patient: Blake Gutierrez MR#: [id number] : 1945 Acct:[id number] Age/Sex: 79 / M ADM Date: 01/09/25 Loc: Room: Type: [facility] Attending Dr: Huber Henning II, MD Ordering Provider: Huber Henning II, MD Date of Service: 01/09/25/ [facility] echo transthoracic: Murmur. Dyspnea. Copies to: MD Amrit Parson II, MD BSA: 2.0 m2 HR: [...] V1 max: 99.5 cm/sec (0.7-1.7m/s)MV E max tico: 96.7 cm/sec(0.8-1.3m/s) MV A max tico: 116.0 cm/sec(0.0-0.0m/s) MV E/A: 0.83 (<1.5) MMode/2D Measurements Calculations TAPSE: 2.9 cm FS: 30.1 % Ao root area: LVOT diam: 2.0 cm RV S Tico: EDV(Teich): 7.5 cm2 LVOT area: 3.3 cm2 [...] __ LV V1 max PG: MR max tico: TV max PG: TR max tico: 4.0 mmHg 690.5 cm/sec 26.0 mmHg 256.5 cm/sec LV V1 mean PG: MR max PG: TR max P.3 mmHg 2.0 mmHg 190.9 mmHg RAP systole: LV V1 mean: 3.0 mmHg 64.5 cm/sec LV V1 VTI: 21.1 cm Transcribed By: ANJUM Performed At: 01/09/25 0832 Signed By: Amrit Sanchez MD 01/09/25 1555 Normal [facility] Ambulatory Visit Summaryon 1 09-28-2023 Ambulatory Visit Summary Ambulatory Visit Summary BLAKE GUTIERREZ :1945 Visit Date:07/28/2024 Ambulatory Visit Instructions Your Diagnosis Personal history of prostate cancer BPH with urinary obstruction Your Care Team Attending Physician - MANI LERMA, Vamsi Allen Primary Care Physician - JUVENCIO LERMA, HUBER Loving This Is Your Medications List Contact prescribing physician if questions or concerns amlodipine (amLODIPine 2.5 mg Tab) aspirin (aspirin 81 mg oral tablet) calcium-vitamin D (calcium (as carbonate)-vitamin D 600 mg-125 units oral tablet) glucosamine (glucosamine 500 mg Cap) lisinopril (lisinopril 40 mg Tab) meloxicam (meloxicam 15 mg Tab) multivitamin with minerals (Multivitamin, Therapeutic w/ Minerals) omega-3 polyunsaturated fatty acids (Fish Oil) omeprazole (omeprazole 40 mg Cap-DR) predniSONE (predniSONE 10 mg Tab) simvastatin (simvastatin 40 mg Tab) Procedures Performed Brachytherapy (03/20/2018), Arthroplasty, CE - Cataract extraction, Mouth repair, skin cancer removal. Discharge Vitals Temperature (Oral) 37 ???C Heart Rate (Peripheral) 84 Respiratory Rate 18 Blood Pressure 139/83 Height 71 in Height 180 cm Weight 242.508 lb Weight 110 kg BMI 33.95 What to do next Scheduled Follow-Up Appointments Sunday 8:15 AM EST With: Vamsi AYALA MD Where: [facility] [address] [facility] [place] [address]- You Need to Schedule the Following Appointments Follow Up with Vamsi AYALA MD, URL When: Comments: 1 yr w/ PSA Where: [facility] [address], [facility] [place] [phone] Medications What How Much When Instructions Unchanged amlodipine (amLODIPine 2.5 mg Tab) 1 Tablets By Mouth Every day Contact prescribing physician if questions or concerns Unchanged aspirin (aspirin 81 mg oral tablet) 1 Tablets By Mouth Every day Contact prescribing physician if questions or concerns Unchanged calcium-vitamin D (calcium (as carbonate)-vitamin D 600 mg-125 units oral tablet) 1 Tablets By Mouth Every day Contact prescribing physician if questions or concerns Unchanged glucosamine (glucosamine 500 mg Cap) 1 Capsules By Mouth Every day Contact prescribing physician if questions or concerns Unchanged lisinopril (lisinopril 40 mg Tab) 1 Tablets By Mouth Every day Contact prescribing physician if questions or concerns Unchanged meloxicam (meloxicam 15 mg Tab) 1 Tablets By Mouth Every day Contact prescribing physician if questions or concerns Unchanged multivitamin with minerals (Multivitamin, Therapeutic w/ Minerals) 1 Tablets By Mouth Every day Contact prescribing physician if questions or concerns Unchanged omega-3 polyunsaturated fatty acids (Fish Oil) See instructions Contact prescribing physician if questions or concerns Unchanged omeprazole (omeprazole 40 mg Cap-DR) 1 Capsules By Mouth Every day Contact prescribing physician if questions or concerns Unchanged predniSONE (predniSONE 10 mg Tab) 1 Tablets By Mouth Every day For PMR Contact prescribing physician if questions or concerns Unchanged simvastatin (simvastatin 40 mg Tab) 1 Tablets By Mouth Once a day (at bedtime) Contact prescribing physician if questions or concerns Allergies No Known Medication Allergies Problems Ongoing - Any problem that you are currently receiving treatment for. BPH with urinary obstruction Dysuria Feeling of incomplete bladder emptying Frequent urination High blood pressure High cholesterol Microscopic hematuria Nocturia Personal history of prostate cancer Prostate cancer Urge incontinence Weak urine stream Historical - Any problem that you are no longer receiving treatment for. Rising PSA following treatment for malignant neoplasm of prostate Patient Survey You may receive a survey via text or e-mail asking about your office visit. Please share your experience with us by completing your survey. We appreciate your feedback and thank you for choosing us for your care. Education Materials Prostate Cancer Screening Prostate cancer screening is testing that is done to check for the presence of prostate cancer in men. The prostate gland is a walnut-sized gland that is located below the bladder and in front of the rectum in males. The function of the prostate is to add fluid to semen during ejaculation. Prostate cancer is one of the most common types of cancer in men. Who should have prostate cancer screening? Screening recommendations vary based on age and other risk factors, as well as between the professional organizations who make the recommendations. In general, screening is recommended if: ??? You are age 50 to 70 and have an average risk for prostate cancer. You should talk with your health care provider about your need for screening and how often screening should be done. Because most prostate cancers ar (more content not included)... Normal [facility] Urology Office/Clinic Noteon 07-28-2024 Urology Office/Clinic Note Urology Office/Clinic Note Chief Complaint 1yr PSA HPI Staff 1 yr w/ PSA. Previous dx: personal hx of pros ca (brachytherapy 2018), BPH with urinary obstruction. *No urologic meds PSA 04/22/24 - <0.13 Dysuria: denies Incomplete bladder emptying: denies Hematuria: denies Frequency: normal Urgency: denies Nocturia: 3x per night Stream: good stream Leaking: very rarely Post void dripping: denies Wearing pads/ Depends: denies Urge incontinence: denies Stress incontinence: denies Incontinence without Sensory Awareness: denies Abdominal pain: denies Flank pain: denies Sexual complaints: _ History of Present Illness Tests reviewed: reviewed UA, PSA I have reviewed the previous health record information and history for this patient from Dr. Ayala. I have reviewed and verified the staff HPI to be accurate for this encounter. Review of Systems PHQ Score Initial Depression Screen Score: 0 SCORE ROS - Provider Constitutional: denies weight loss, denies hot flashes. Eyes: denies eye problems. Gastrointestinal: denies nausea, denies vomiting. Cardiovascular: denies chest pain or angina. Integumentary: no dryness Musculoskeletal: denies musculoskeletal symptoms. ENMT: denies otolaryngeal symptoms. Respiratory: no shortness of breath. Heme/Lymph: denies easy bleeding tendency, denies easy bruising tendency. Psychiatric: no confusion, no anxiety. Genitourinary: See HPI. Physical Exam Vitals & Measurements T: 37 ???C(Oral) HR: 84(Peripheral) RR: 18 BP: 139/83 HT: 71 in HT: 180 cm WT: 110 kg WT: 242.508 lb BMI: 33.95 General Appearance: alert, no distress, well nourished, well developed male. Assessment/Plan 1. Personal history of prostate cancer (Z85.46: Personal history of malignant neoplasm of prostate) PSA 02/04/20 - 0.22 02/07/21 - 0.11 02/13/22 - 0.14 02/14/23 - 0.05 04/22/24 - <0.13 TRUS/bx 12/20/17 by DLS - Simeon score 3+3 equal 6 stage T2 a adenocarcinoma S/p Brachytherapy 03/2018. PSA remains low and stable. Will continue to monitor. -F/u in 1 yr w/ PSA 2. BPH with urinary obstruction (N40.1: Benign prostatic hyperplasia with lower urinary tract symptoms) UA today negative for blood and infection. Not taking any BPH meds. Gets up 3x/night, not very bothersome. Denies accidents. Does not feel urination is bothersome. Follow-up With When Contact Information MANI LERMA, Vamsi Allen, URL [facility] [address], [place] [address]- [phone] Additional Instructions: 1 yr w/ PSA Patient Education Prostate Cancer Screening Leatha Sandoval, personally scribed for Dr. Ayala on 07/28/2024 11:54:52. . Documentation recorded by the scribe, Leatha Henning, accurately reflects the services(s) I performed and decisions made by me. Authenticated by Dr. Ayala on 07/28/2024 12:02:44. Problem List/Past Medical History Ongoing BPH with urinary obstruction Dysuria Feeling of incomplete bladder emptying Frequent urination High blood pressure High cholesterol Microscopic hematuria Nocturia Personal history of prostate cancer Prostate cancer Urge incontinence Weak urine stream Historical Rising PSA following treatment for malignant neoplasm of prostate Procedure/Surgical History Brachytherapy (03/20/2018), Arthroplasty, CE - Cataract extraction, Mouth repair, skin cancer removal. Medications amLODIPine 2.5 mg Tab, 2.5 mg= 1 tab(s), Oral, Daily aspirin 81 mg oral tablet, 81 mg= 1 tab(s), Oral, Daily calcium (as carbonate)-vitamin D 600 mg-125 units oral tablet, 1 tab(s), Oral, Daily Fish Oil, See Instructions glucosamine 500 mg Cap, 500 mg= 1 cap(s), Oral, Daily lisinopril 40 mg Tab, 40 mg= 1 tab(s), Oral, Daily meloxicam 15 mg Tab, 15 mg= 1 tab(s), Oral, Daily Multivitamin, Therapeutic w/ Minerals, 1 tab(s), Oral, Daily omeprazole 40 mg Cap-DR, 40 mg= 1 cap(s), Oral, Daily predniSONE 10 mg Tab, 10 mg= 1 tab(s), Oral, Daily simvastatin 40 mg Tab, 40 mg= 1 tab(s), Oral, Once a day (at bedtime) Allergies No Known Medication Allergies Social History Alcohol - Denies Alcohol Use, 03/20/2018 Current, 0 drinks/episode average. Previous treatment: None., 02/18/2019 Substance Abuse - Denies Substance Abuse, 03/20/2018 Tobacco - Denies Tobacco Use, 03/20/2018 Never (less than 100 in lifetime) Tobacco Use:. Never Smokeless Tobacco Use:., 07/28/2024 Family History Diabetes mellitus type 2: Uncle. Hypertension: Father. Immunizations Vaccine Date Status Comments influenza virus vaccine, inactivated 04/20/2024 Recorded influenza virus vaccine, inactivated 05/24/2023 Recorded pneumococcal 20-valent conjugate vaccine 02/23/2023 Recorded zoster vaccine, inactivated 02/21/2023 Recorded diphtheria/pertussis, acel/tetanus adult 02/21/2023 Recorded influenza virus vaccine, inactivated 05/11/2022 Recorded SARS-CoV-2 (COVID-19) [id number] 05/11/20 (more content not included)... 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 Impression: Stable appearance of left shoulder replacement Glen Randolph D.O. [facility] Radiology Study observation (narrative) [facility] Patient Letter FTon 2023 Patient Letter [facility] Patient Letter [facility] June 02, 2024 BLAKE GUTIERREZ [address] [place] [address] : 1945 Dear Blake, You missed your scheduled appointment on: 06/02/[address] Vamsi Ayala. Please note our appointment slots fill quickly. When you fail to cancel or reschedule an appointment the office is unable to fill the appointment slot that was reserved for you. In the future, we ask that you call 24 hours in advance to cancel your appointment. Our current reminder system gives you the opportunity to cancel by responding to our reminder text, phone call or email. You can also call the office to reschedule during normal business hours or use our on-line scheduling portal at your convenience. Our goal is to provide convenient and quality care to all of our patients. We appreciate your consideration regarding any future cancellations. The Contact information that we have on file is no longer correct, when you call in to reschedule, please update your phone number. Sincerely, [facility] [address], [place] [address] [facility] CNOVon 04-30-2024 CNOV Office Visit (RADTSA ) BLAKE GUTIERREZ ([id number]) 1945 M Date Time Provider Department 04/30/24 11:15 AM Karthik VAZ During your visit today, we recorded the following information about you: Temperature Pulse Respiration Blood pressure 97.4 degrees 77/minute 18/minute 162/89 Weight 88.3 kg Noelle Deluna RN 04/30/2024 11:02 AM Signed JEAN CLAUDE 8 HARJIT Bradley G Phillip, MD 05/08/2024 12:46 PM Signed Radiation Oncology - Follow Up Note PATIENT NAME: Blake Gutierrez PATIENT DIAGNOSIS: Prostate adenocarcinoma, initial PSA 5.02, biopsy [place] score 3 + 3 = 6 (grade group 1), clinical stage T2a, N0, M0, stage I [cT1a-c/T2a, N0, M0, PSA <10, GG 1] (AJCC 8th ed.), s/p TRUS Random biopsy. Prostate cancer (C61), 2018 NCCN Risk Group: Low Risk Group RADIATION SUMMARY: Prostate brachytherapy, I-125, 145 Gy, 23.668 mCi, 61 sources on 03/20/18. INTERVAL HISTORY: Doing well. Denies any new problems or concerns. PSA HISTORY: PSA (ng/mL) Date Value 04/30/2019 0.58 PSA. (no units) Date Value 04/22/2024 <0.13 02/14/2023 0.05 02/07/2021 0.110 02/07/2021 0.110 PSA 04/25/18: 4.8 ng/mL ALLERGIES No Known Allergies furosemide (LASIX) 20 mg tablet Take 20 mg by mouth twice daily. Omeprazole 40 mg capsule Take 40 mg by mouth once daily. lisinopril (ZESTRIL, PRINIVIL) 40 mg tablet Take 40 mg by mouth once daily. simvastatin (ZOCOR) 40 mg tablet Take 40 mg by mouth daily at bedtime. meloxicam (MOBIC) 15 mg tablet Take 15 mg by mouth once daily. amLODIPine (NORVASC) 2.5 mg tablet Take 2.5 mg by mouth once daily. predniSONE (DELTASONE) 10 mg tablet Take 5 mg by mouth once daily. aspirin, enteric coated (ASPIRIN, ENTERIC COATED) 81 mg EC tablet Take 81 mg by mouth once daily. calcium carbonate/vitamin D3 (CALCIUM 600 + D,3, ORAL) Take by mouth. gluc solomon/chondro solomon A/vit C/Mn (GLUCOSAMINE 1500 COMPLEX ORAL) Take by mouth. REVIEW OF SYSTEMS: D/N = 4-6/2-3 Hematuria: none Dysuria: Yes Incontinence: No Urgency: mild Catheter use: No Medications to aid urination: no - Total AUA Score: 8 Bowel movement frequency: occ diarrhea Blood per rectum: none PHYSICAL EXAM: BP 162/89 Pulse 77 Temp 36.3 ?C (97.4 ?F) Resp 18 Wt 88.3 kg (194 lb 9.6 oz) SpO2 99% BMI 28.11 kg/m? KPS: 100 General appearance: Alert and oriented. No acute distress. Rectal exam def Extremities: No deformities, edema, skin discoloration, clubbing or cyanosis. Lymph Nodes: No cervical lymphadenopathy, No supraclavicular lymphadenopathy, No axillary lymphadenopathy. Skin: Skin color, texture, turgor normal, no suspicious rashes or lesions. ASSESSMENT/PLAN: Prostate adenocarcinoma, initial PSA 5.02, biopsy Simeon score 3 + 3 = 6 (grade group 1), clinical stage T2a, N0, M0, stage I [cT1a-c/T2a, N0, M0, PSA <10, GG 1] (AJCC 8th ed.), s/p TRUS Random biopsy. Prostate cancer (C61), 2018 NCCN Risk Group: Low Risk Group, status post brachytherapy seed implant 03/20/18 Patient continues to do very well, now with undetectable PSA. 5 years out with treatment. No postradiation related problems. Overall risk for issues at this point well. After discussion we will plan to see patient back in 1 year with repeat PSA. Signed by: Karthik Vaz MD cc: Huber Henning II, MD Referring Provider: Karthik VAZ [[id number]] Allergies As of Date: 04/30/2024 (No Known Allergies) Date Reviewed: 04/30/2024 Reviewed by: Noelle Deluna RN - Fully Assessed Reason for Visit: Prostate Cancer [590] Primary Visit Diagnosis:History of prostate cancer [Z85.46] Order(s):PSA (OUTSIDE) [[id number]] Order #: [id number] PROSTATE-SPECIFIC ANTIGEN DIAGNOSTIC [SQPSA] Order #: [id number] FUTURE Prescriptions as of 05/08/2024 - furosemide (LASIX) 20 mg tablet Take 20 mg by mouth twice daily. - Omeprazole 40 mg capsule Take 40 mg by mouth once daily. - lisinopril (ZESTRIL, PRINIVIL) 40 mg tablet Take 40 mg by mouth once daily. - simvastatin (ZOCOR) 40 mg tablet Take 40 mg by mouth daily at bedtime. - meloxicam (MOBIC) 15 mg tablet Take 15 mg by mouth once daily. - amLODIPine (NORVASC) 2.5 mg tablet Take 2.5 mg by mouth once daily. - predniSONE (DELTASONE) 10 mg tablet Take 5 mg by mouth once daily. - aspirin, enteric coated (ASPIRIN, ENTERIC COATED) 81 mg EC tablet Take 81 mg by mouth once daily. - calcium carbonate/vitamin D3 (CALCIUM 600 + D,3, ORAL) Take by mouth. - gluc solomon/chondro solomon A/vit C/Mn (GLUCOSAMINE 1500 COMPLEX ORAL) Take by mouth. Problem List As Of Date 04/30/2024 Noted Resolved Prostate cancer (HCC) [C61] 01/22/2018 Visit Notes: >> Noelle Deluna RN Wed Apr 30, 2024 10:47 AM Status: Signed AUA 8 Noelle Deluna RN Disposition: Return in about 1 year (around 04/30/2025). Follow-up and Disposition History for Encounter Date Provider Department Center 04/30/20 (more content not included)... [facility], [facility] PROSTATE SPECIFIC ANTIGEN DX <0.13 NINF - 4.00 ng/mL [facility] CNPNon 04-22-2024 CNPN Telephone (RADTSA) BLAKE GUTIERREZ ([id number]) 1945 M Date Time Provider Department 04/22/24 [facility] During your visit today, we recorded the following information about you: Zina Grant LPN 04/22/2024 8:12 AM Signed Please sign pended yearly PSA order. Fax order to [facility] per patient request. HARJIT Doyle Ariana, LPN 04/22/2024 10:26 AM Signed Order faxed to [facility] lab. Zina Grant RN Allergies As of Date: 04/22/2024 (No Known Allergies) Date Reviewed: 04/11/2023 Reviewed by: Zina Grant LPN - Fully Assessed Reason for Visit: Orders [681] Primary Visit Diagnosis:History of prostate cancer [Z85.46] Order(s):PROSTATE-SPE CIFIC ANTIGEN DIAGNOSTIC [SQPSA] Order #: [id number] FUTURE Prescriptions as of 04/22/2024 - furosemide (LASIX) 20 mg tablet Take 20 mg by mouth twice daily. - Omeprazole 40 mg capsule Take 40 mg by mouth once daily. - lisinopril (ZESTRIL, PRINIVIL) 40 mg tablet Take 40 mg by mouth once daily. - simvastatin (ZOCOR) 40 mg tablet Take 40 mg by mouth daily at bedtime. - meloxicam (MOBIC) 15 mg tablet Take 15 mg by mouth once daily. - amLODIPine (NORVASC) 2.5 mg tablet Take 2.5 mg by mouth once daily. - predniSONE (DELTASONE) 10 mg tablet Take 5 mg by mouth once daily. - aspirin, enteric coated (ASPIRIN, ENTERIC COATED) 81 mg EC tablet Take 81 mg by mouth once daily. - calcium carbonate/vitamin D3 (CALCIUM 600 + D,3, ORAL) Take by mouth. - gluc solomon/chondro solomon A/vit C/Mn (GLUCOSAMINE 1500 COMPLEX ORAL) Take by mouth. Problem List As Of Date 04/22/2024 Noted Resolved Prostate cancer (HCC) [C61] 01/22/2018 Encounter Status:Closed by ZINA GRANT on 04/22/[address] [facility] PSA (OUTSIDE)on 04-22-2024 [facility] Provider Letteron 02-20-2024 Provider Letter Provider Letter February 20, 2024 BLAKE GUTIERREZ [address] [place] [address] : 1945 Dear Blake, We have been trying to reach you with no success. It is important that you return our call regarding your 03/24/[address] Vamsi Ayala upon receiving this letter. Unfortunately he will be out of the office that day and we will need to reschedule this visit. Also, at the time of your call, please provide us with your current telephone number or contact information. Thank you for your prompt attention to this matter. Sincerely, [facility] [address], [place] [address] Normal [facility] CNCOon 02-18-[address] [facility] XR SHOULDER LT 2V or >on XR SHOULDER LT 2V or > EXAM: XR SHOULDER LT 2V or > HISTORY: Pain of left shoulder joint COMPARISON: None. 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 No acute fracture identified. Moderate osteoarthritis of the acromioclavicular joint. The hardware appears intact. Soft tissues are unremarkable. Limited evaluation left thorax is unremarkable. IMPRESSION: Postsurgical changes without acute abnormality. Electronically authenticated by: GENTRY ROSE Date: 2021-12-13 08:07 Normal [facility] Complete Blood Counton 11-02 Erythrocyte distribution width (RBC) [Ratio] 13.0 % Normal 11.0-15.0 [facility] Prosthetic Technician Comment on above: Performed By: #### L IPD, TSH reflex FT4, CBC, CMP #### [facility] [address] [place], [place] [id number] Hematocrit (Bld) [Volume fraction] 36.8 % Low 38.5-50.0 [facility] Prosthetic Technician Comment on above: Performed By: #### L IPD, TSH reflex FT4, CBC, CMP #### [facility] [address] [place] [place], [place] [id number] Hemoglobin (Bld) [Mass/Vol] 12.1 g/dL Low 13.0-17.1 [facility] Prosthetic Technician Comment on above: Performed By: #### L IPD, TSH reflex FT4, CBC, CMP #### [facility] [address] [place], [place] [id number] MCH (RBC) [Entitic mass] 32.4 pg Normal 27.0-33.0 [facility] Specialist Comment on above: Performed By: #### L IPD, TSH reflex FT4, CBC, CMP #### [facility] [address] [place] [place], [place] [id number] MCHC (RBC) [Mass/Vol] 32.9 g/dL Normal 32.0-36.0 [facility] Specialist Comment on above: Performed By: #### L IPD, TSH reflex FT4, CBC, CMP #### [facility] [address] [place] [place], [place] [id number] MCV (RBC) [Entitic vol] 99 fL Normal 80-100 [facility] Prosthetic Technician Comment on above: Performed By: #### L IPD, TSH reflex FT4, CBC, CMP #### [facility] [address] [place] [place], [place] [id number] Platelet mean volume (Bld) [Entitic vol] 11.10 fL Normal 7.50-12.50 [facility] Prosthetic Technician Comment on above: Performed By: #### L IPD, TSH reflex FT4, CBC, CMP #### [facility] [address] [place], [place] [id number] Platelets (Bld) [#/Vol] 190 10*3/uL Normal 140-400 [facility] Prosthetic Technician Comment on above: Performed By: #### L IPD, TSH reflex FT4, CBC, CMP #### [facility] [address] [place], [place] [id number] RBC (Bld) [#/Vol] 3.73 10*6/uL Low 4.20-5.80 [facility] Prosthetic Technician Comment on above: Performed By: #### L IPD, TSH reflex FT4, CBC, CMP #### [facility] [address] [place], [place] [id number] RDW-SD 46.5 fL Normal 37.0-50.0 [facility] Prosthetic Technician Comment on above: Performed By: #### L IPD, TSH reflex FT4, CBC, CMP #### [facility] [address] [place], [place] [id number] WBC (Bld) [#/Vol] 9.9 10*3/uL Normal 3.8-11.0 [facility] [place] Prosthetic Technician Comment on above: Performed By: #### L IPD, TSH reflex FT4, CBC, CMP #### [facility] [address] [place], [place] [id number] Comprehensive Metabolic Pane bhavik 11-02-2021 Albumin [Mass/Vol] 4.8 g/dL Normal 3.6-5.1 [facility] [place] Prosthetic Technician Comment on above: Performed By: #### L IPD, TSH reflex FT4, CBC, CMP #### [facility] [address] [place], [place] [id number] Albumin/Globulin [Mass ratio] 2.7 {ratio} High 1.0-2.5 [facility] Prosthetic Technician Comment on above: Performed By: #### L IPD, TSH reflex FT4, CBC, CMP #### [facility] [address] [place], [place] [id number] ALP [Catalytic activity/Vol] 61 U/L Normal 40-129 [facility] Specialist Comment on above: Performed By: #### L IPD, TSH reflex FT4, CBC, CMP #### [facility] [address] [place] [place], [place] [id number] ALT [Catalytic activity/Vol] 17 U/L Normal 9-46 [facility] Specialist Comment on above: Result Comment: 07/20 Female reference range changed. Performed By: #### L IPD, TSH reflex FT4, CBC, CMP #### [facility] [address] [place], [place] [id number] Anion gap [Moles/Vol] 19 mmol/L Normal 12-20 [facility] Prosthetic Technician Comment on above: Result Comment: Effe ctive 08/25/2019 reference range changed. Performed By: #### L IPD, TSH reflex FT4, CBC, CMP #### [facility] [address] [place], [place] [id number] AST [Catalytic activity/Vol] 23 U/L Normal 10-40 [facility] Prosthetic Technician Comment on above: Performed By: #### L IPD, TSH reflex FT4, CBC, CMP #### [facility] [address] [place], [place] [id number] Bilirubin [Mass/Vol] 0.54 mg/dL Normal 0.30-1.20 [facility] Specialist Comment on above: Performed By: #### L IPD, TSH reflex FT4, CBC, CMP #### [facility] [address] [place], [place] [id number] BUN/CREA 25 Ratio High 6-22 [facility] Specialist Comment on above: Performed By: #### L IPD, TSH reflex FT4, CBC, CMP #### [facility] [address] [place], [place] [id number] Calcium [Mass/Vol] 10.3 mg/dL High 8.6-10.2 [facility] Comment on above: Performed By: #### L IPD, TSH reflex FT4, CBC, CMP #### [facility] [address] [place], [place] [id number] Chloride [Moles/Vol] 102 mmol/L Normal 98-107 [facility] Specialist Comment on above: Performed By: #### L IPD, TSH reflex FT4, CBC, CMP #### [facility] [address] [place] [place], [place] [id number] CO2 [Moles/Vol] 23 mmol/L Normal 20-31 [facility] Specialist Comment on above: Performed By: #### L IPD, TSH reflex FT4, CBC, CMP #### [facility] [address] [place], [place] [id number] Creatinine [Mass/Vol] 1.2 mg/dL Normal 0.7-1.4 [facility] Specialist Comment on above: Performed By: #### L IPD, TSH reflex FT4, CBC, CMP #### [facility] [address] [place] [place], [place] [id number] eGFRAA 69 mL/min/1.73m2 Normal >60 [facility] Specialist Comment on above: Performed By: #### L IPD, TSH reflex FT4, CBC, CMP #### [facility] [address] [place] [place], [place] [id number] eGFRNAA 57 mL/min/1.73m2 Low >60 [facility] Specialist Comment on above: Performed By: #### L IPD, TSH reflex FT4, CBC, CMP #### [facility] [address] [place], [place] [id number] Globulin (S) [Mass/Vol] 1.8 g/dL Low 1.9-3.7 [facility] Prosthetic Technician Comment on above: Performed By: #### L IPD, TSH reflex FT4, CBC, CMP #### [facility] [address] [place], [place] [id number] Glucose [Mass/Vol] 144 mg/dL High 65-99 [facility] Prosthetic Technician Comment on above: Result Comment: For FASTING Glucose --- ADA reference ranges: Normal 65-99 mg/dl Prediabetes 100-125 Diabetes >/= 126 Performed By: #### L IPD, TSH reflex FT4, CBC, CMP #### [facility] [address] [place] [place], [place] [id number] Potassium [Moles/Vol] 4.8 mmol/L Normal 3.5-5.5 [facility] Prosthetic Technician Comment on above: Performed By: #### L IPD, TSH reflex FT4, CBC, CMP #### [facility] [address] [place] [place], [place] [id number] Protein [Mass/Vol] 6.6 g/dL Normal 6.1-8.1 [facility] Prosthetic Technician Comment on above: Performed By: #### L IPD, TSH reflex FT4, CBC, CMP #### [facility] [address] [place], [place] [id number] Sodium [Moles/Vol] 139 mmol/L Normal 135-146 [facility] Prosthetic Technician Comment on above: Performed By: #### L IPD, TSH reflex FT4, CBC, CMP #### [facility] [address] [place] [place], [place] [id number] Urea nitrogen [Mass/Vol] 31 mg/dL High 7-25 [facility] Prosthetic Technician Comment on above: Performed By: #### L IPD, TSH reflex FT4, CBC, CMP #### [facility] [address] [place], [place] [id number] Lipid Panelon 11-02-2021 Cholesterol [Mass/Vol] 182 mg/dL Normal 125-200 [facility] Prosthetic Technician Comment on above: Result Comment: Low risk < 200mg/dL Borderline risk 201-239 mg/dl High risk > or equal to 240 Performed By: #### L IPD, TSH reflex FT4, CBC, CMP #### [facility] [address] [place], [place] [id number] Cholesterol in HDL [Mass/Vol] 96 mg/dL Normal >40 [facility] Comment on above: Result Comment: High Cardiovascular Risk HDL <40 mg/dL Low Cardiovascular Risk HDL > or equal to 60 mg/dl Performed By: #### L IPD, TSH reflex FT4, CBC, CMP #### [facility] [address] [place], [place] [id number] Cholesterol in LDL [Mass/Vol] 75 mg/dL Normal [facility] Comment on above: Result Comment: LDL ATP III CLASSIFICATION LDL less than 100 mg/dl Optimal LDL 100-129 mg/dl Near or above optimal LDL 130-159 Borderline high LDL 160-189 High LDL greater than 189 mg/dl Very High Performed By: #### L IPD, TSH reflex FT4, CBC, CMP #### [facility] [address] [place], [place] [id number] Cholesterol in VLDL [Mass/Vol] 11 mg/dL Normal [facility] Comment on above: Performed By: #### L IPD, TSH reflex FT4, CBC, CMP #### [facility] [address] [place], [place] [id number] Cholesterol.total/C holesterol in HDL [Mass ratio] 2 {ratio} Normal [facility] Comment on above: Performed By: #### L IPD, TSH reflex FT4, CBC, CMP #### [facility] [address] [place], [place] [id number] Triglyceride [Mass/Vol] 55 mg/dL Normal 30-150 [facility] Specialist Comment on above: Result Comment: TRIG ATPIII CLASSIFICATIONS TRIG less than 150 mg/dl Normal TRIG 150-199 mg/dl Borderline High TRIG 200-500 mg/dl High TRIG greather than 500 mg/dl Very High Performed By: #### L IPD, TSH reflex FT4, CBC, CMP #### [facility] [address] [place] [place], [place] [id number] TSH w/ Reflex to Free T4on 0 - TSH 1.600 uIU/mL Normal 0.400-4.500 [facility] Specialist Comment on above: Performed By: #### L IPD, TSH reflex FT4, CBC, CMP #### [facility] [address] [place], [place] [id number] CBC W MANUAL DIFFon 06-01-20 21 ATYPICAL LYMPH # Normal [facility] Comment on above: Performed By: #### C ANTOINETTE #### [facility] [address] [place] [address] Dr. Jamin Nicholas ATYPICAL LYMPH % Normal [facility] Comment on above: Performed By: #### C ANTOINETTE #### [facility] [address] [place] [address] Dr. Jamin Nicholas BAND # 0.1 103/ul Normal 0.0-0.3 [facility] Comment on above: Performed By: #### C ANTOINETTE #### [facility] [address] [place] [address] Dr. Jamin Nicholas BAND % 1 % Normal 0-5 [facility] Comment on above: Performed By: #### C ANTOINETTE #### [facility] [address] [place] [address] Dr. Jamin Nicholas BASOM # 0.00 103/ul Normal 0.00-0.10 [facility] Comment on above: Performed By: #### C ANTOINETTE #### [facility] [address] [place] [address] Dr. Jamin Nicholas BASOM % 0.0 % Critically low 0.2-2.0 [facility] Comment on above: Performed By: #### C ANTOINETTE #### [facility] [address] [place] [address] Dr. Jamin Nicholas BLAST # Normal [facility] Comment on above: Performed By: #### C ANTOINETTE #### [facility] [address] [place] [address] Dr. Jamin Nicholas BLAST % Normal [facility] Comment on above: Performed By: #### C ANTOINETTE #### [facility] [address] [place] [address] Dr. Jamin Nicholas CORRECTED WBC Normal 4.0-11.0 [facility] Comment on above: Performed By: #### C ANTOINETTE #### [facility] [address] [address] [address] Jamin Nicholas EOS # 0.00 103/ul Normal 0.00-0.70 [facility] Comment on above: Performed By: #### C ANTOINETTE #### [facility] [address] [address] [address] Jamin Nicholas EOS% 0.0 % Critically low 0.9-7.0 [facility] Comment on above: Performed By: #### C ANTOINETTE #### [facility] [address] [address] [address] Jamin Nicholas HCT 27.5 % Critically low 42.0-54.0 [facility] Comment on above: Performed By: #### C ANTOINETTE #### [facility] [address] [address] [address] Jamin Nicholas HGB 9.5 g/dl Critically low 14.0-18.0 [facility] Comment on above: Performed By: #### C ANTOINETTE #### [facility] [address] [address] [address] Jamin Nicholas LYMPHM # 0.19 103/ul Critically low 1.20-3.80 [facility] Comment on above: Performed By: #### C ANTOINETTE #### [facility] [address] [address] [address] Jamin Nicholas LYMPHM% 2.0 % Critically low 20.5-60.0 [facility] Comment on above: Performed By: #### C ANTOINETTE #### [facility] [address] [address] [address] Jamin Nicholas MCH 32.1 pg Normal 25.9-34.0 [facility] Comment on above: Performed By: #### C ANTOINETTE #### [facility] [address] [address] [address] Jamin Nicholas MCHC 34.5 g/dl Normal 29.9-35.2 [facility] Comment on above: Performed By: #### C ANTOINETTE #### [facility] [address] [address] [address] Jamin Nicholas MCV 92.9 fL Normal 80.0-94.0 [facility] Comment on above: Performed By: #### C BCMAN #### [facility] [address] [address] [address] Jamin Nicholas METAMYELOCYTE # Normal [facility] Comment on above: Performed By: #### C BCNINFA #### [facility] [address] [place] [address] Dr. Jamin Nicholas METAMYELOCYTE % Normal [facility] Comment on above: Performed By: #### C BCNINFA #### [facility] [address] [address] [address] Jamin Nihcolas MONOM# 0.39 103/ul Normal 0.30-0.80 [facility] Comment on above: Performed By: #### C ANTOINETTE #### [facility] [address] [place] [address] Dr. Jamin Nicholas MONOM% 4.0 % Normal 1.7-12.0 [facility] Comment on above: Performed By: #### C ANTOINETTE #### [facility] [address] [place] [address] Dr. Jamin Nicholas MPV 9.9 fL Normal 9.5-13.5 [facility] Comment on above: Performed By: #### C ANTOINETTE #### [facility] [address] [place] [address] Dr. Jamin Nicholas MYELOCYTE # Normal [facility] Comment on above: Performed By: #### C ANTOINETTE #### [facility] [address] [place] [address] Dr. Jamin Nicholas MYELOCYTE % Normal [facility] Comment on above: Performed By: #### C ANTOINETTE #### [facility] [address] [place] [address] Dr. Jamin Nicholas NRBC Normal [facility] Comment on above: Performed By: #### C ANTOINETTE #### [facility] [address] [address] [address] Jamin Nicholas PLT 227 103/ul Normal 150-450 [facility] Comment on above: Performed By: #### C ANTOINETTE #### [facility] [address] [address] [address] Jamin Nicholas RBC 2.96 106/ul Critically low 4.70-6.10 [facility] Comment on above: Performed By: #### C ANTOINETTE #### [facility] [address] [address] [address] Jamin Nicholas RDW 12.3 % Normal 11.0-15.0 [facility] Comment on above: Performed By: #### C ANTOINETTE #### [facility] [address] [address] [address] Jamin Nicholas SEG # 9.02 103/ul Critically high 1.40-6.50 [facility] Comment on above: Performed By: #### C ANTOINETTE #### [facility] [address] [address] [address] Jamin Nicholas SEG % 93.0 % Critically high 43.0-75.0 [facility] Comment on above: Performed By: #### C ANTOINETTE #### [facility] [address] [address] [address] Jamin Nicholas WBC 9.7 103/ul Normal 4.0-11.0 [facility] Comment on above: Performed By: #### C ANTOINETTE #### [facility] [address] [address] [address] Jamin Nicholas PROF 14(COMP METB)on 021 Albumin [Mass/Vol] 2.3 g/dL Critically low 3.5-5.0 [facility] Comment on above: Performed By: #### C MP #### [facility] [address] [address] [address] Jamin Nicholas Albumin/Globulin [Mass ratio] 0.9 {ratio} Normal [facility] Comment on above: Performed By: #### C MP #### [facility] [address] [address] [address] Jamin Nicholas ALP [Catalytic activity/Vol] 45 U/L Normal 38-126 [facility] Comment on above: Performed By: #### C MP #### [facility] [address] [address] [address] Jamin Nicholas ALT [Catalytic activity/Vol] 47 U/L Normal 21-72 [facility] Comment on above: Performed By: #### C MP #### [facility] [address] [address] [address] Jamin Nicholas Anion gap [Moles/Vol] 11.5 mmol/L Normal [facility] Comment on above: Performed By: #### C MP #### [facility] [address] [address] [address] Jamin Nicholas AST [Catalytic activity/Vol] 38 U/L Normal 17-59 [facility] Comment on above: Performed By: #### C MP #### [facility] [address] [address] [address] Jamin Nicholas Bilirubin [Mass/Vol] 0.7 mg/dL Normal 0.2-1.3 [facility] Comment on above: Performed By: #### C MP #### [facility] [address] [place] [address] Dr. Jamin Nicholas Calcium [Mass/Vol] 8.3 mg/dL Critically low 8.4-10.2 [facility] Comment on above: Performed By: #### C MP #### [facility] [address] [place] [address] Dr. Jamin Nicholas Chloride [Moles/Vol] 104 mmol/L Normal 98-107 [facility] Comment on above: Performed By: #### C MP #### [facility] [address] [address] [address] Jamin Nicholas CO2 [Moles/Vol] 26.8 mmol/L Normal 22.0-30.0 [facility] Comment on above: Performed By: #### C MP #### [facility] [address] [place] [address] Dr. Jamin Nicholas Creatinine [Mass/Vol] 0.85 mg/dL Normal 0.66-1.25 [facility] Comment on above: Performed By: #### C MP #### [facility] [address] [address] [address] Jamin Nicholas EGFR-AF KAZAKH >60 Normal >=60 [facility] Comment on above: Performed By: #### C MP #### [facility] [address] [address] [address] Jamin Nicholas EGFR-NON AF KAZAKH >60 Normal >=60 [facility] Comment on above: Performed By: #### C MP #### [facility] [address] [address] [address] Jamin Nicholas Globulin (S) [Mass/Vol] 2.7 g/dL Normal [facility] Comment on above: Performed By: #### C MP #### [facility] [address] [address] [address] Jamin Nicholas Glucose [Mass/Vol] 170 mg/dL Critically high 74-106 [facility] Comment on above: Performed By: #### C MP #### [facility] [address] [address] [address] Jamin Nicholas Potassium [Moles/Vol] 4.3 mmol/L Normal 3.4-5.0 [facility] Comment on above: Performed By: #### C MP #### [facility] [address] [place] [address] Dr. Jamin Nicholas Protein [Mass/Vol] 5.0 g/dL Critically low 6.1-8.2 [facility] Comment on above: Performed By: #### C MP #### [facility] [address] [address] [address] Jamin Nicholas Sodium [Moles/Vol] 138 mmol/L Normal 137-145 [facility] Comment on above: Performed By: #### C MP #### [facility] [address] [address] [address] Jamin Nicholas Urea nitrogen [Mass/Vol] 28.0 mg/dL Critically high 9.0-20.0 [facility] Comment on above: Performed By: #### C MP #### [facility] [address] [place] [address] Dr. Jamin Nicholas Urea nitrogen/Creatinine [Mass ratio] 32.9 mg/mg Normal [facility] Comment on above: Performed By: #### C MP #### [facility] [address] [place] [address] Dr. Jamin Nicholas CBC W MANUAL DIFFon 05-31-20 21 ATYPICAL LYMPH # Normal [facility] Comment on above: Performed By: #### C BCMAN #### [facility] [address] [place] [address] Dr. Jamin Nicholas ATYPICAL LYMPH % Normal [facility] Comment on above: Performed By: #### C BCMAN #### [facility] [address] [place] [address] Dr. Jamin Nicholas BAND # Normal 0.0-0.3 [facility] Comment on above: Performed By: #### C BCNINFA #### [facility] [address] [place] [address] Dr. Jamin Nicholas BAND % Normal 0-5 [facility] Comment on above: Performed By: #### C BCMAN #### [facility] [address] [place] [address] Dr. Jamin Nicholas BASOM # 0.00 103/ul Normal 0.00-0.10 [facility] Comment on above: Performed By: #### C BCMAN #### [facility] [address] [place] [address] Dr. Jamin Nicholas BASOM % 0.0 % Critically low 0.2-2.0 [facility] Comment on above: Performed By: #### C ANTOINETTE #### [facility] [address] [place] [address] Dr. Jamin Nicholas BLAST # Normal [facility] Comment on above: Performed By: #### C ANTOINETTE #### [facility] [address] [place] [address] Dr. Jamin Nicholas BLAST % Normal [facility] Comment on above: Performed By: #### C ANTOINETTE #### [facility] [address] [place] [address] Dr. Jamin Nicholas CORRECTED WBC Normal 4.0-11.0 [facility] Comment on above: Performed By: #### C ANTOINETTE #### [facility] [address] [address] [address] Jamin Nicholas EOS # 0.00 103/ul Normal 0.00-0.70 [facility] Comment on above: Performed By: #### C ANTOINETTE #### [facility] [address] [address] [address] Jamin Nicholas EOS% 0.0 % Critically low 0.9-7.0 [facility] Comment on above: Performed By: #### C ANTOINETTE #### [facility] [address] [address] [address] Jamin Nicholas HCT 28.2 % Critically low 42.0-54.0 [facility] Comment on above: Performed By: #### C ANTOINETTE #### [facility] [address] [address] [address] Jamin Nicholas HGB 9.7 g/dl Critically low 14.0-18.0 [facility] Comment on above: Performed By: #### C ANTOINETTE #### [facility] [address] [address] [address] Jamin Nicholas LYMPHM # 0.31 103/ul Critically low 1.20-3.80 [facility] Comment on above: Performed By: #### C ANTOINETTE #### [facility] [address] [address] [address] Jamin Nicholas LYMPHM% 3.0 % Critically low 20.5-60.0 [facility] Comment on above: Performed By: #### C ANTOINETTE #### [facility] [address] [address] [address] Jamin Nicholas MCH 32.1 pg Normal 25.9-34.0 [facility] Comment on above: Performed By: #### C ANTOINETTE #### [facility] [address] [address] [address] Jamin Nicholas MCHC 34.4 g/dl Normal 29.9-35.2 [facility] Comment on above: Performed By: #### C ANTOINETTE #### [facility] [address] [place] [address] Dr. Jamin Nicholas MCV 93.4 fL Normal 80.0-94.0 [facility] Comment on above: Performed By: #### C BCMAN #### [facility] [address] [place] [address] Dr. Jamin Nicholas METAMYELOCYTE # Normal [facility] Comment on above: Performed By: #### C BCMAN #### [facility] [address] [place] [address] Dr. Jamin Nicholas METAMYELOCYTE % Normal [facility] Comment on above: Performed By: #### C ANTOINETTE #### [facility] [address] [place] [address] Dr. Jamin Nicholas MONOM# 0.41 103/ul Normal 0.30-0.80 [facility] Comment on above: Performed By: #### C ANTOINETTE #### [facility] [address] [place] [address] Dr. Jamin Nicholas MONOM% 4.0 % Normal 1.7-12.0 [facility] Comment on above: Performed By: #### C ANTOINETTE #### [facility] [address] [place] [address] Dr. Jamin Nicholas MPV 10.2 fL Normal 9.5-13.5 [facility] Comment on above: Performed By: #### C ANTOINETTE #### [facility] [address] [place] [address] Dr. Jamin Nicholas MYELOCYTE # 0.1 103/ul Normal [facility] Comment on above: Performed By: #### C ANTOINETTE #### [facility] [address] [place] [address] Dr. Jamin Nicholas MYELOCYTE % 1 % Normal [facility] Comment on above: Performed By: #### C ANTOINETTE #### [facility] [address] [place] [address] Dr. Jamin Nicholas NRBC Normal [facility] Comment on above: Performed By: #### C ANTOINETTE #### [facility] [address] [place] [address] Dr. Jamin Nicholas PLT 203 103/ul Normal 150-450 [facility] Comment on above: Performed By: #### C ANTOINETTE #### [facility] [address] [place] [address] Dr. Jamin Nicholas RBC 3.02 106/ul Critically low 4.70-6.10 [facility] Comment on above: Performed By: #### C ANTOINETTE #### [facility] [address] [place] [address] Dr. Jamin Nicholas RDW 12.4 % Normal 11.0-15.0 [facility] Comment on above: Performed By: #### C ANTOINETTE #### [facility] [address] [place] [address] Dr. Jamin Nicholas SEG # 9.38 103/ul Critically high 1.40-6.50 [facility] Comment on above: Performed By: #### C ANTOINETTE #### [facility] [address] [place] [address] Dr. Jamin Nicholas SEG % 92.0 % Critically high 43.0-75.0 [facility] Comment on above: Performed By: #### C ANTOINETTE #### [facility] [address] [place] [address] Dr. Jamin Nicholas WBC 10.2 103/ul Normal 4.0-11.0 [facility] Comment on above: Performed By: #### C ANTOINETTE #### [facility] [address] [place] [address] Dr. Jamin Nicholas PROF CHEM 8 (BAS METB)on Anion gap [Moles/Vol] 11.6 mmol/L Normal [facility] Comment on above: Performed By: #### B MP #### [facility] [address] [place] [address] Dr. Jamin Nicholas Calcium [Mass/Vol] 8.2 mg/dL Critically low 8.4-10.2 [facility] Comment on above: Performed By: #### B MP #### [facility] [address] [place] [address] Dr. Jamin Nicholas Chloride [Moles/Vol] 105 mmol/L Normal 98-107 [facility] Comment on above: Performed By: #### B MP #### [facility] [address] [address] [address] Jamin Nicholas CO2 [Moles/Vol] 23.1 mmol/L Normal 22.0-30.0 [facility] Comment on above: Performed By: #### B MP #### [facility] [address] [address] [address] aJmin Nicholas Creatinine [Mass/Vol] 0.84 mg/dL Normal 0.66-1.25 [facility] Comment on above: Performed By: #### B MP #### [facility] [address] [place] [address] Dr. Jamin Nicholas EGFR-AF KAZAKH >60 Normal >=60 [facility] Comment on above: Performed By: #### B MP #### [facility] [address] [place] [address] Dr. Jamin Nicholas EGFR-NON AF KAZAKH >60 Normal >=60 [facility] Comment on above: Performed By: #### B MP #### [facility] [address] [address] [address] Jamin Nicholas Glucose [Mass/Vol] 165 mg/dL Critically high 74-106 [facility] Comment on above: Performed By: #### B MP #### [facility] [address] [address] [address] Jamin Nicholas Potassium [Moles/Vol] 4.7 mmol/L Normal 3.4-5.0 [facility] Comment on above: Performed By: #### B MP #### [facility] [address] [address] [address] Jamin Nicholas Sodium [Moles/Vol] 135 mmol/L Critically low 137-145 [facility] Comment on above: Performed By: #### B MP #### [facility] [address] [address] [address] Jamin Nicholas Urea nitrogen [Mass/Vol] 31.0 mg/dL Critically high 9.0-20.0 [facility] Comment on above: Performed By: #### B MP #### [facility] [address] [address] [address] Jamin Nicholas Urea nitrogen/Creatinine [Mass ratio] 36.9 mg/mg Normal [facility] Comment on above: Performed By: #### B MP #### [facility] [address] [place] [address] Dr. Jamin Nicholas CBC AUTO DIFFon 05-30-2021 BASO # 0.0 103/ul Normal 0.0-0.1 [facility] Comment on above: Performed By: #### C BCMAN #### [facility] [address] [place] [address] Dr. Jamin Nicholas Basophils/100 WBC (Bld) 0.1 % Critically low 0.2-2.0 [facility] Comment on above: Performed By: #### C BCMAN #### [facility] [address] [place] [address] Dr. Jamin Nicholas EO # 0.0 103/ul Normal 0.0-0.7 [facility] Comment on above: Performed By: #### C BCMAN #### [facility] [address] [place] [address] Dr. Jamin Nicholas Eosinophils/100 WBC (Bld) 0.0 % Critically low 0.9-7.0 [facility] Comment on above: Performed By: #### C BCMAN #### [facility] [address] [place] [address] Dr. Jamin Nicholas Erythrocyte distribution width (RBC) [Ratio] 12.4 % Normal 11.0-15.0 [facility] Comment on above: Performed By: #### C BCMAN #### [facility] [address] [place] [address] Dr. Jamin Nicholas Hematocrit (Bld) [Volume fraction] 27.2 % Critically low 42.0-54.0 [facility] Comment on above: Performed By: #### C BCMAN #### [facility] [address] [place] [address] Dr. Jamin Nicholas Hemoglobin (Bld) [Mass/Vol] 9.2 g/dL Critically low 14.0-18.0 [facility] Comment on above: Performed By: #### C ANTOINETTE #### [facility] [address] [place] [address] Dr. Jamin Nicholas IG # 0.41 10e3/ul Critically high 0.00-0.03 [facility] Comment on above: Performed By: #### C ANTOINETTE #### [facility] [address] [place] [address] Dr. Jamin Nicholas IG % 4.3 % Critically high 0.0-0.5 [facility] Comment on above: Performed By: #### C BCNINFA #### [facility] [address] [place] [address] Dr. Jamin Nicholas LYMPH # 0.3 103/ul Critically low 1.2-3.8 [facility] Comment on above: Performed By: #### C ANTOINETTE #### [facility] [address] [place] [address] Dr. Jamin Nicholas Lymphocytes/100 WBC (Bld) 3.0 % Critically low 20.5-60.0 [facility] Comment on above: Performed By: #### C ANTOINETTE #### [facility] [address] [place] [address] Dr. Jamin Nicholas MANUAL DIFF REQ NO Normal [facility] Comment on above: Performed By: #### C ANTOINETTE #### [facility] [address] [place] [address] Dr. Jamin Nicholas MCH (RBC) [Entitic mass] 32.1 pg Normal 25.9-34.0 [facility] Comment on above: Performed By: #### C ANTOINETTE #### [facility] [address] [place] [address] Dr. Jamin Nicholas MCHC (RBC) [Mass/Vol] 33.8 g/dL Normal 29.9-35.2 [facility] Comment on above: Performed By: #### C ANTOINETTE #### [facility] [address] [place] [address] Dr. Jamin Nicholas MCV (RBC) [Entitic vol] 94.8 fL Critically high 80.0-94.0 [facility] Comment on above: Performed By: #### C ANTOINETTE #### [facility] [address] [place] [address] Dr. Jamin Nicholas MONO # 0.4 103/ul Normal 0.3-0.8 [facility] Comment on above: Performed By: #### C ANTOINETTE #### [facility] [address] [place] [address] Dr. Jamin Nicholas Monocytes/100 WBC (Bld) 4.4 % Normal 1.7-12.0 [facility] Comment on above: Performed By: #### C ANTOINETTE #### [facility] [address] [place] [address] Dr. Jamin Nicholas NEUT # 8.5 103/ul Critically high 1.4-6.5 [facility] Comment on above: Performed By: #### C ANTOINETTE #### [facility] [address] [place] [address] Dr. Jamin Nicholas Neutrophils/100 WBC (Bld) 88.2 % Critically high 43.0-75.0 [facility] Comment on above: Performed By: #### C ANTOINETTE #### [facility] [address] [place] [address] Dr. Jamin Nicholas Platelet mean volume (Bld) [Entitic vol] 10.0 fL Normal 9.5-13.5 [facility] Comment on above: Performed By: #### C ANTOINETTE #### [facility] [address] [place] [address] Dr. Jamin Nicholas PLT 188 103/ul Normal 150-450 [facility] Comment on above: Performed By: #### C ANTOINETTE #### [facility] [address] [place], [place] [id number] Dr. Jamin Nicholas RBC 2.87 106/ul Critically low 4.70-6.10 [facility] Comment on above: Performed By: #### C ANTOINETTE #### [facility] [address] [place] [address] Dr. Jamin Nicholas WBC 9.6 103/ul Normal 4.0-11.0 [facility] Comment on above: Performed By: #### C BCMAN #### [facility] [address] [address] [address] Jamin Nicholas PROF 14(COMP METB)on 021 Albumin [Mass/Vol] 2.3 g/dL Critically low 3.5-5.0 [facility] Comment on above: Performed By: #### C MP #### [facility] [address] [place] [address] Dr. Jamin Nicholas Albumin/Globulin [Mass ratio] 0.9 {ratio} Normal [facility] Comment on above: Performed By: #### C MP #### [facility] [address] [place] [address] Dr. Jamin Nicholas ALP [Catalytic activity/Vol] 48 U/L Normal 38-126 [facility] Comment on above: Performed By: #### C MP #### [facility] [address] [place] [address] Dr. Jamin Nicholas ALT [Catalytic activity/Vol] 64 U/L Normal 21-72 [facility] Comment on above: Performed By: #### C MP #### [facility] [address] [place] [address] Dr. Jamin Nicholas Anion gap [Moles/Vol] 9.7 mmol/L Normal [facility] Comment on above: Performed By: #### C MP #### [facility] [address] [place] [address] Dr. Jamin Nicholas AST [Catalytic activity/Vol] 62 U/L Critically high 17-59 [facility] Comment on above: Performed By: #### C MP #### [facility] [address] [place] [address] Dr. Jamin Nicholas Bilirubin [Mass/Vol] 0.4 mg/dL Normal 0.2-1.3 [facility] Comment on above: Performed By: #### C MP #### [facility] [address] [place] [address] Dr. Jamin Nicholas Calcium [Mass/Vol] 8.0 mg/dL Critically low 8.4-10.2 [facility] Comment on above: Performed By: #### C MP #### [facility] [address] [address] [address] Jamin Nicholas Chloride [Moles/Vol] 104 mmol/L Normal 98-107 [facility] Comment on above: Performed By: #### C MP #### [facility] [address] [address] [address] Jamin Nicholas CO2 [Moles/Vol] 25.8 mmol/L Normal 22.0-30.0 [facility] Comment on above: Performed By: #### C MP #### [facility] [address] [address] [address] Jamin Nicholas Creatinine [Mass/Vol] 0.95 mg/dL Normal 0.66-1.25 [facility] Comment on above: Performed By: #### C MP #### [facility] [address] [place] [address] Dr. Jamin Nicholas EGFR-AF KAZAKH >60 Normal >=60 [facility] Comment on above: Performed By: #### C MP #### [facility] [address] [address] [address] Jamin Nicholas EGFR-NON AF KAZAKH >60 Normal >=60 [facility] Comment on above: Performed By: #### C MP #### [facility] [address] [place] [address] Dr. Jamin Nicholas Globulin (S) [Mass/Vol] 2.6 g/dL Normal [facility] Comment on above: Performed By: #### C MP #### [facility] [address] [place] [address] Dr. Jamin Nicholas Glucose [Mass/Vol] 177 mg/dL Critically high 74-106 [facility] Comment on above: Performed By: #### C MP #### [facility] [address] [place] [address] Dr. Jamin Nicholas Potassium [Moles/Vol] 4.5 mmol/L Normal 3.4-5.0 [facility] Comment on above: Performed By: #### C MP #### [facility] [address] [address] [address] Jamin Nicholas Protein [Mass/Vol] 4.9 g/dL Critically low 6.1-8.2 Th [facility] Comment on above: Performed By: #### C MP #### [facility] [address] [place] [address] Dr. Jamin Nicholas Sodium [Moles/Vol] 135 mmol/L Critically low 137-145 Th [facility] Comment on above: Performed By: #### C MP #### [facility] [address] [place] [address] Dr. Jamin Nicholas Urea nitrogen [Mass/Vol] 37.0 mg/dL Critically high 9.0-20.0 [facility] Comment on above: Performed By: #### C MP #### [facility] [address] [place] [address] Dr. Jamin Nicholas Urea nitrogen/Creatinine [Mass ratio] 38.9 mg/mg Normal [facility] Comment on above: Performed By: #### C MP #### [facility] [address] [place] [address] Dr. Jamin Nicholas CBC AUTO DIFFon 05-29-2021 BASO # 0.0 103/ul Normal 0.0-0.1 [facility] Comment on above: Performed By: #### C BCMAN #### [facility] [address] [place] [address] Dr. Jamin Nicholas Basophils/100 WBC (Bld) 0.1 % Critically low 0.2-2.0 [facility] Comment on above: Performed By: #### C BCMAN #### [facility] [address] [place] [address] Dr. Jamin Nicholas EO # 0.0 103/ul Normal 0.0-0.7 [facility] Comment on above: Performed By: #### C BCMAN #### [facility] [address] [place] [address] Dr. Jamin Nicholas Eosinophils/100 WBC (Bld) 0.0 % Critically low 0.9-7.0 [facility] Comment on above: Performed By: #### C BCMAN #### [facility] [address] [address] [address] Jamin Nicholas Erythrocyte distribution width (RBC) [Ratio] 12.6 % Normal 11.0-15.0 [facility] Comment on above: Performed By: #### C ANTOINETTE #### [facility] [address] [address] [address] Jamin Nicholas Hematocrit (Bld) [Volume fraction] 28.1 % Critically low 42.0-54.0 [facility] Comment on above: Performed By: #### C ANTOINETTE #### [facility] [address] [place] [address] Dr. Jamin Nicholas Hemoglobin (Bld) [Mass/Vol] 9.3 g/dL Critically low 14.0-18.0 [facility] Comment on above: Performed By: #### C ANTOINETTE #### [facility] [address] [place] [address] Dr. Jamin Nicholas IG # 0.25 10e3/ul Critically high 0.00-0.03 [facility] Comment on above: Performed By: #### C ANTOINETTE #### [facility] [address] [place] [address] Dr. Jamin Nicholas IG % 2.6 % Critically high 0.0-0.5 [facility] Comment on above: Performed By: #### C ANTOINETTE #### [facility] [address] [place] [address] Dr. Jamin Nicholas LYMPH # 0.3 103/ul Critically low 1.2-3.8 [facility] Comment on above: Performed By: #### C ANTOINETTE #### [facility] [address] [place] [address] Dr. Jamin Nicholas Lymphocytes/100 WBC (Bld) 3.6 % Critically low 20.5-60.0 [facility] Comment on above: Performed By: #### C ANTOINETTE #### [facility] [address] [place] [address] Dr. Jamin Nicholas MANUAL DIFF REQ NO Normal [facility] Comment on above: Performed By: #### C ANTOINETTE #### [facility] [address] [address] [address] Jamin Nicholas MCH (RBC) [Entitic mass] 31.8 pg Normal 25.9-34.0 [facility] Comment on above: Performed By: #### C ANTOINETTE #### [facility] [address] [address] [address] Jamin Nicholas MCHC (RBC) [Mass/Vol] 33.1 g/dL Normal 29.9-35.2 [facility] Comment on above: Performed By: #### C ANTOINETTE #### [facility] [address] [address] [address] Jamin Nicholas MCV (RBC) [Entitic vol] 96.2 fL Critically high 80.0-94.0 [facility] Comment on above: Performed By: #### C ANTOINETTE #### [facility] [address] [place] [address] Dr. Jamin Nicholas MONO # 0.4 103/ul Normal 0.3-0.8 [facility] Comment on above: Performed By: #### C ANTOINETTE #### [facility] [address] [address] [address] Jamin Nicholas Monocytes/100 WBC (Bld) 4.4 % Normal 1.7-12.0 [facility] Comment on above: Performed By: #### C ANTOINETTE #### [facility] [address] [address] [address] Jamin Nicholas NEUT # 8.5 103/ul Critically high 1.4-6.5 [facility] Comment on above: Performed By: #### C ANTOINETTE #### [facility] [address] [address] [address] Jamin Nicholas Neutrophils/100 WBC (Bld) 89.3 % Critically high 43.0-75.0 [facility] Comment on above: Performed By: #### C ANTOINETTE #### [facility] [address] [place] [address] Dr. Jamin Nicholas Platelet mean volume (Bld) [Entitic vol] 10.0 fL Normal 9.5-13.5 [facility] Comment on above: Performed By: #### C ANTOINETTE #### [facility] [address] [place], [place] [address] Dr. Jamin Nicholas PLT 168 103/ul Normal 150-450 [facility] Comment on above: Performed By: #### C ANTOINETTE #### [facility] [address] [place], [place] [address] Dr. Jamin Nicholas RBC 2.92 106/ul Critically low 4.70-6.10 [facility] Comment on above: Performed By: #### C ANTOINETTE #### [facility] [address] [place], [place] [address] Dr. Jamin Nicholas WBC 9.5 103/ul Normal 4.0-11.0 [facility] Comment on above: Performed By: #### C ANTOINETTE #### [facility] [address] [address] [address] Jamin Nicholas CULTURE SPUTUMon 05-29-2021 CULTURE SPUTUM Culture Observations : METHICILLIN RESISTANT STAPH AUREUS ISOLATED. Culture Observations: PLEASE FOLLOW APPROPRIATE ISOLATION PROCEDURES. Culture Observations: Called MRSA to Nataliia Valerio, RN @ 0755 05/29/21 Isolate 1 Staphylococcus aureus Moderate growth of ORGANISM 1 Staphylococcus aureus ANTIBIOTIC M.I.C RX STATUS Beta-Lactamase Pos POS F Cefoxitin Screen Pos POS F Benzylpenicillin >=0.5 R F Ciprofloxacin <=0.5 S F Levofloxacin <=0.12 S F Moxifloxacin <=0.25 S F Inducible Clindamycin Resistance Neg NEG F Erythromycin >=8 R F Clindamycin <=0.25 S F Quinupristin/Dalfopri stin <=0.25 S F Linezolid 2 S F Vancomycin <=0.5 S F Tetracycline <=1 S F Rifampicin <=0.5 S F Trimethoprim/Sulfamet hoxazole <=10 S F Oxacillin >=4 R F Normal [facility] Comment on above: Performed By: #### S PUTCX #### [facility] [address] [address] [address] Jamin Nicholas POINT OF CARE GLUCOSEon 05-20 Glucose [Mass/Vol] 177 mg/dL Critically high 74-106 [facility] Comment on above: Performed By: #### C ANTOINETTE #### [facility] [address] [place] [address] Dr. Jamin Nicholas PROF 14(COMP METB)on 021 Albumin [Mass/Vol] 2.3 g/dL Critically low 3.5-5.0 Th [facility] Comment on above: Performed By: #### C ANTOINETTE #### [facility] [address] [place] [address] Dr. Jamin Nicholas Albumin/Globulin [Mass ratio] 0.8 {ratio} Normal [facility] Comment on above: Performed By: #### C ANTOINETTE #### [facility] [address] [place] [address] Dr. Jamin Nicholas ALP [Catalytic activity/Vol] 42 U/L Normal 38-126 [facility] Comment on above: Performed By: #### C ANTOINETTE #### [facility] [address] [place] [address] Dr. Jamin Nicholas ALT [Catalytic activity/Vol] 55 U/L Normal 21-72 [facility] Comment on above: Performed By: #### C ANTOINETTE #### [facility] [address] [place] [address] Dr. Jamin Nicholas Anion gap [Moles/Vol] 8.4 mmol/L Normal [facility] Comment on above: Performed By: #### C ANTOINETTE #### [facility] [address] [place] [address] Dr. Jamin Nicholas AST [Catalytic activity/Vol] 77 U/L Critically high 17-59 [facility] Comment on above: Performed By: #### C ANTOINETTE #### [facility] [address] [place] [address] Dr. Jamin Nicholas Bilirubin [Mass/Vol] 0.5 mg/dL Normal 0.2-1.3 [facility] Comment on above: Performed By: #### C ANTOINETTE #### [facility] [address] [place] [address] Dr. Jamin Nicholas Calcium [Mass/Vol] 8.0 mg/dL Critically low 8.4-10.2 [facility] Comment on above: Performed By: #### C BCMAN #### [facility] [address] [place] [address] Dr. Jamin Nicholas Chloride [Moles/Vol] 103 mmol/L Normal 98-107 [facility] Comment on above: Performed By: #### C BCMAN #### [facility] [address] [place] [address] Dr. Jamin Nicholas CO2 [Moles/Vol] 29.4 mmol/L Normal 22.0-30.0 [facility] Comment on above: Performed By: #### C BCMAN #### [facility] [address] [place] [address] Dr. Jamin Nicholas Creatinine [Mass/Vol] 0.98 mg/dL Normal 0.66-1.25 [facility] Comment on above: Performed By: #### C BCNINFA #### [facility] [address] [place] [address] Dr. Jamin Nicholas EGFR-AF KAZAKH >60 Normal >=60 [facility] Comment on above: Performed By: #### C BCMAN #### [facility] [address] [place] [address] Dr. Jamin Nicholas EGFR-NON AF KAZAKH >60 Normal >=60 [facility] Comment on above: Performed By: #### C BCMAN #### [facility] [address] [place] [address] Dr. Jamin Nicholas Globulin (S) [Mass/Vol] 2.8 g/dL Normal [facility] Comment on above: Performed By: #### C BCMAN #### [facility] [address] [place] [address] Dr. Jamin Nicholas Glucose [Mass/Vol] 187 mg/dL Critically high 74-106 [facility] Comment on above: Performed By: #### C BCMAN #### [facility] [address] [place] [address] Dr. Jamin Nicholas Potassium [Moles/Vol] 4.8 mmol/L Normal 3.4-5.0 [facility] Comment on above: Performed By: #### C BCMAN #### [facility] [address] [address] [address] Jamin Nicholas Protein [Mass/Vol] 5.1 g/dL Critically low 6.1-8.2 Th [facility] Comment on above: Performed By: #### C BCMAN #### [facility] [address] [place] [address] Dr. Jamin Nicholas Sodium [Moles/Vol] 136 mmol/L Critically low 137-145 Th [facility] Comment on above: Performed By: #### C BCMAN #### [facility] [address] [place] [address] Dr. Jamin Nicholas Urea nitrogen [Mass/Vol] 40.0 mg/dL Critically high 9.0-20.0 [facility] Comment on above: Performed By: #### C AGNIESZKAMAN #### [facility] [address] [place] [address] Dr. Jamin Nicholas Urea nitrogen/Creatinine [Mass ratio] 40.8 mg/mg Normal [facility] Comment on above: Performed By: #### C ANTOINETTE #### [facility] [address] [place] [address] Dr. Jamin Nicholas CBC AUTO DIFFon 05-28-2021 BASO # 0.0 103/ul Normal 0.0-0.1 [facility] Comment on above: Performed By: #### C MP #### [facility] [address] [place] [address] Dr. Jamin Nicholas Basophils/100 WBC (Bld) 0.1 % Critically low 0.2-2.0 [facility] Comment on above: Performed By: #### C MP #### [facility] [address] [place] [address] Dr. Jamin Nicholas EO # 0.0 103/ul Normal 0.0-0.7 [facility] Comment on above: Performed By: #### C MP #### [facility] [address] [place] [address] Dr. Jamin Nicholas Eosinophils/100 WBC (Bld) 0.0 % Critically low 0.9-7.0 [facility] Comment on above: Performed By: #### C MP #### [facility] [address] [address] [address] Jamin Nicholas Erythrocyte distribution width (RBC) [Ratio] 12.7 % Normal 11.0-15.0 [facility] Comment on above: Performed By: #### C MP #### [facility] [address] [address] [address] Jamin Nihcolas Hematocrit (Bld) [Volume fraction] 28.4 % Critically low 42.0-54.0 [facility] Comment on above: Performed By: #### C MP #### [facility] [address] [place] [address] Dr. Jamin Nicholas Hemoglobin (Bld) [Mass/Vol] 9.6 g/dL Critically low 14.0-18.0 [facility] Comment on above: Performed By: #### C MP #### [facility] [address] [place] [address] Dr. Jamin Nicholas IG # 0.17 10e3/ul Critically high 0.00-0.03 [facility] Comment on above: Performed By: #### C MP #### [facility] [address] [place] [address] Dr. Jamin Nicholas IG % 1.7 % Critically high 0.0-0.5 [facility] Comment on above: Performed By: #### C MP #### [facility] [address] [place] [address] Dr. Jamin Nicholas LYMPH # 0.3 103/ul Critically low 1.2-3.8 [facility] Comment on above: Performed By: #### C MP #### [facility] [address] [address] [address] Jamin Nicholas Lymphocytes/100 WBC (Bld) 3.3 % Critically low 20.5-60.0 [facility] Comment on above: Performed By: #### C MP #### [facility] [address] [place] [address] Dr. Jamin Nicholas MANUAL DIFF REQ NO Normal [facility] Comment on above: Performed By: #### C MP #### [facility] [address] [address] [address] Jamin Nicholas MCH (RBC) [Entitic mass] 32.3 pg Normal 25.9-34.0 [facility] Comment on above: Performed By: #### C MP #### [facility] [address] [address] [address] Jamin Nicholas MCHC (RBC) [Mass/Vol] 33.8 g/dL Normal 29.9-35.2 [facility] Comment on above: Performed By: #### C MP #### [facility] [address] [address] [address] Jamin Nicholas MCV (RBC) [Entitic vol] 95.6 fL Critically high 80.0-94.0 [facility] Comment on above: Performed By: #### C MP #### [facility] [address] [place] [address] Dr. Jamin Nicholas MONO # 0.4 103/ul Normal 0.3-0.8 [facility] Comment on above: Performed By: #### C MP #### [facility] [address] [place] [address] Dr. Jamin Nicholas Monocytes/100 WBC (Bld) 4.5 % Normal 1.7-12.0 [facility] Comment on above: Performed By: #### C MP #### [facility] [address] [address] [address] Jamin Nicholas NEUT # 8.9 103/ul Critically high 1.4-6.5 [facility] Comment on above: Performed By: #### C MP #### [facility] [address] [address] [address] Jamin Nicholas Neutrophils/100 WBC (Bld) 90.4 % Critically high 43.0-75.0 [facility] Comment on above: Performed By: #### C MP #### [facility] [address] [place] [address] Dr. Jamin Nicholas Platelet mean volume (Bld) [Entitic vol] 9.9 fL Normal 9.5-13.5 [facility] Comment on above: Performed By: #### C MP #### [facility] [address] [place] [address] Dr. Jamin Nicholas PLT 152 103/ul Normal 150-450 [facility] Comment on above: Performed By: #### C MP #### [facility] [address] [place] [address] Dr. Jamin Nicholas RBC 2.97 106/ul Critically low 4.70-6.10 [facility] Comment on above: Performed By: #### C MP #### [facility] [address] [address] [address] Jamin Nicholas WBC 9.8 103/ul Normal 4.0-11.0 [facility] Comment on above: Performed By: #### C MP #### [facility] [address] [place] [address] Dr. Jamin Nicholas PROF 14(COMP METB)on 021 Albumin [Mass/Vol] 2.3 g/dL Critically low 3.5-5.0 [facility] Comment on above: Performed By: #### C MP #### [facility] [address] [place] [address] Dr. Jamin Nicholas Albumin/Globulin [Mass ratio] 0.8 {ratio} Normal [facility] Comment on above: Performed By: #### C MP #### [facility] [address] [place] [address] Dr. Jamin Nicholas ALP [Catalytic activity/Vol] 45 U/L Normal 38-126 [facility] Comment on above: Performed By: #### C MP #### [facility] [address] [place] [address] Dr. Jamin Nicholas ALT [Catalytic activity/Vol] 41 U/L Normal 21-72 [facility] Comment on above: Performed By: #### C MP #### [facility] [address] [place] [address] Dr. Jamin Nicholas Anion gap [Moles/Vol] 11.5 mmol/L Normal [facility] Comment on above: Performed By: #### C MP #### [facility] [address] [address] [address] Jamin Nicholas AST [Catalytic activity/Vol] 72 U/L Critically high 17-59 [facility] Comment on above: Performed By: #### C MP #### [facility] [address] [address] [address] Jamin Nicholas Bilirubin [Mass/Vol] 0.5 mg/dL Normal 0.2-1.3 [facility] Comment on above: Performed By: #### C MP #### [facility] [address] [address] [address] Jamin Nicholas Calcium [Mass/Vol] 8.2 mg/dL Critically low 8.4-10.2 Th [facility] Comment on above: Performed By: #### C MP #### [facility] [address] [address] [address] Jamin Nicholas Chloride [Moles/Vol] 106 mmol/L Normal 98-107 [facility] Comment on above: Performed By: #### C MP #### [facility] [address] [address] [address] Jamin Nicholas CO2 [Moles/Vol] 25.0 mmol/L Normal 22.0-30.0 [facility] Comment on above: Performed By: #### C MP #### [facility] [address] [address] [address] Jamin Nicholas Creatinine [Mass/Vol] 1.09 mg/dL Normal 0.66-1.25 [facility] Comment on above: Performed By: #### C MP #### [facility] [address] [address] [address] Jamin Nicholas EGFR-AF KAZAKH >60 Normal >=60 [facility] Comment on above: Performed By: #### C MP #### [facility] [address] [address] [address] Jamin Nicholas EGFR-NON AF KAZAKH >60 Normal >=60 [facility] Comment on above: Performed By: #### C MP #### [facility] [address] [address] [address] Jamin Nicholas Globulin (S) [Mass/Vol] 2.9 g/dL Normal [facility] Comment on above: Performed By: #### C MP #### [facility] [address] [address] [address] Jamin Nicholas Glucose [Mass/Vol] 195 mg/dL Critically high 74-106 [facility] Comment on above: Performed By: #### C MP #### [facility] [address] [address] [address] Jamin Nicholas Potassium [Moles/Vol] 4.5 mmol/L Normal 3.4-5.0 [facility] Comment on above: Performed By: #### C MP #### [facility] [address] [address] [address] Jamin Nicholas Protein [Mass/Vol] 5.2 g/dL Critically low 6.1-8.2 Th [facility] Comment on above: Performed By: #### C MP #### [facility] [address] [address] [address] Jamin Nicholas Sodium [Moles/Vol] 138 mmol/L Normal 137-145 [facility] Comment on above: Performed By: #### C MP #### [facility] [address] [address] [address] Jamin Nicholas Urea nitrogen [Mass/Vol] 34.0 mg/dL Critically high 9.0-20.0 [facility] Comment on above: Performed By: #### C MP #### [facility] [address] [address] [address] Jamin Nicholas Urea nitrogen/Creatinine [Mass ratio] 31.2 mg/mg Normal [facility] Comment on above: Performed By: #### C MP #### [facility] [address] [address] [address] Jamin Nicholas CBC W MANUAL DIFFon 05-27-20 21 ATYPICAL LYMPH # 0.10 103/ul Normal [facility] Comment on above: Performed By: #### C BCMAN #### [facility] [address] [place] [address] Dr. Jamin Nicholas ATYPICAL LYMPH % 1 % Normal [facility] Comment on above: Performed By: #### C BCMAN #### [facility] [address] [place] [address] Dr. Jamin Nicholas BAND # 0.2 103/ul Normal 0.0-0.3 [facility] Comment on above: Performed By: #### C BCMAN #### [facility] [address] [place] [address] Dr. Jamin Nicholas BAND % 2 % Normal 0-5 [facility] Comment on above: Performed By: #### C BCMAN #### [facility] [address] [place] [address] Dr. Jamin Nicholas BASOM # 0.00 103/ul Normal 0.00-0.10 [facility] Comment on above: Performed By: #### C BCMAN #### [facility] [address] [place] [address] Dr. Jamin Nicholas BASOM % 0.0 % Critically low 0.2-2.0 [facility] Comment on above: Performed By: #### C BCMAN #### [facility] [address] [place] [address] Dr. Jamin Nicholas BLAST # Normal [facility] Comment on above: Performed By: #### C BCNINFA #### [facility] [address] [place] [address] Dr. Jamin Nicholas BLAST % Normal [facility] Comment on above: Performed By: #### C BCMAN #### [facility] [address] [place] [address] Dr. Jamin Nicholas CORRECTED WBC Normal 4.0-11.0 [facility] Comment on above: Performed By: #### C BCMAN #### [facility] [address] [place] [address] Dr. Jamin Nicholas EOS # 0.00 103/ul Normal 0.00-0.70 [facility] Comment on above: Performed By: #### C BCMAN #### [facility] [address] [place] [address] Dr. Jamin Nicholas EOS% 0.0 % Critically low 0.9-7.0 [facility] Comment on above: Performed By: #### C BCNINFA #### [facility] [address] [place] [address] Dr. Jamin Nicholas HCT 30.5 % Critically low 42.0-54.0 [facility] Comment on above: Performed By: #### C BCNINFA #### [facility] [address] [address] [address] Jamin Nicholas HGB 10.2 g/dl Critically low 14.0-18.0 [facility] Comment on above: Performed By: #### C BCNINFA #### [facility] [address] [place] [address] Dr. Jamin Nicholas LYMPHM # 0.50 103/ul Critically low 1.20-3.80 [facility] Comment on above: Performed By: #### C ANTOINETTE #### [facility] [address] [place] [address] Dr. Jamni Nicholas LYMPHM% 5.0 % Critically low 20.5-60.0 [facility] Comment on above: Performed By: #### C ANTOINETTE #### [facility] [address] [place] [address] Dr. Jamin Nicholas MCH 32.2 pg Normal 25.9-34.0 [facility] Comment on above: Performed By: #### C ANTOINETTE #### [facility] [address] [place] [address] Dr. Jamin Nicholas MCHC 33.4 g/dl Normal 29.9-35.2 [facility] Comment on above: Performed By: #### C BCNINFA #### [facility] [address] [address] [address] Jamin Nicholas MCV 96.2 fL Critically high 80.0-94.0 [facility] Comment on above: Performed By: #### C BCNINFA #### [facility] [address] [place] [address] Dr. Jamin Nicholas METAMYELOCYTE # Normal [facility] Comment on above: Performed By: #### C ANTOINETTE #### [facility] [address] [place] [address] Dr. Jamin Nicholas METAMYELOCYTE % Normal [facility] Comment on above: Performed By: #### C ANTOINETTE #### [facility] [address] [address] [address] Jamin Nicholas MONOM# 0.30 103/ul Normal 0.30-0.80 [facility] Comment on above: Performed By: #### C ANTOINETTE #### [facility] [address] [address] [address] Jamin Nicholas MONOM% 3.0 % Normal 1.7-12.0 [facility] Comment on above: Performed By: #### C ANTOINETTE #### [facility] [address] [place] [address] Dr. Jamin Nicholas MPV 10.1 fL Normal 9.5-13.5 [facility] Comment on above: Performed By: #### C ANTOINETTE #### [facility] [address] [place] [address] Dr. Jamin Nicholas MYELOCYTE # Normal [facility] Comment on above: Performed By: #### C ANTOINETTE #### [facility] [address] [place] [address] Dr. Jamin Nicholas MYELOCYTE % Normal [facility] Comment on above: Performed By: #### C ANTOINETTE #### [facility] [address] [place] [address] Dr. Jamin Nicholas NRBC Normal [facility] Comment on above: Performed By: #### C ANTOINETTE #### [facility] [address] [place] [address] Dr. Jamin Nicholas PLT 161 103/ul Normal 150-450 [facility] Comment on above: Performed By: #### C ANTOINETTE #### [facility] [address] [place] [address] Dr. Jamin Nicholas RBC 3.17 106/ul Critically low 4.70-6.10 [facility] Comment on above: Performed By: #### C ANTOINETTE #### [facility] [address] [place] [address] Dr. Jamin Nicholas RDW 13.0 % Normal 11.0-15.0 [facility] Comment on above: Performed By: #### C ANTOINETTE #### [facility] [address] [address] [address] Jamin Nicholas SEG # 8.90 103/ul Critically high 1.40-6.50 [facility] Comment on above: Performed By: #### C ANTOINETTE #### [facility] [address] [address] [address] Jamin Nicholas SEG % 89.0 % Critically high 43.0-75.0 [facility] Comment on above: Performed By: #### C ANTOINETTE #### [facility] [address] [address] [address] Jamin Nicholas WBC 10.0 103/ul Normal 4.0-11.0 [facility] Comment on above: Performed By: #### C ANTOINETTE #### [facility] [address] [address] [address] Jamin Nicholas CTA CHEST WO W CONon 021 CTA CHEST WO W CON EXAMINATION: CTA CHEST WO W CON HISTORY: SHORTNESS OF BREATH COMPARISON: No relevant comparison available. TECHNIQUE: Multi-planar CT images were created with IV contrast. Axial, Coronal, and Sagittal images. Dose reduction techniques were achieved by using automated exposure control and/or adjustment of mA and/or kV according to patient size and/or use of iterative reconstruction technique. 3-D reconstruction was performed on a separate workstation. FINDINGS: VASCULATURE: No pulmonary embolism or abnormal opacity. LUNGS: Marked, dense, confluent bilateral pulmonary infiltrates. PLEURA: No mass, effusion, or pneumothorax. BRANT: Calcified right hilar lymph nodes. MEDIASTINUM: No mass or adenopathy. CARDIAC: No enlargement, pericardial effusion, or pericardial thickening. AORTA: No aneurysm or dissection. CHEST WALL: No mass or axillary adenopathy. BONES: No bone lesion or fracture. LIMITED ABDOMEN: Left renal cysts. No overtly suspicious findings. Limited images of the upper abdomen. OTHER: Negative. IMPRESSION: 1. No pulmonary embolism. 2. Marked bilateral pulmonary infiltrates suggestive of pneumonia. Electronically authenticated by: EZEKIEL MONZON Date: 2021-05-27 07:47 Normal [facility] PROF 14(COMP METB)on 021 Albumin [Mass/Vol] 2.6 g/dL Critically low 3.5-5.0 [facility] Comment on above: Performed By: #### C ANTOINETTE #### [facility] [address] [address] [address] Jamin Nicholas Albumin/Globulin [Mass ratio] 1.0 {ratio} Normal [facility] Comment on above: Performed By: #### C ANTOINETTE #### [facility] [address] [address] [address] Jamin Nicholas ALP [Catalytic activity/Vol] 45 U/L Normal 38-126 [facility] Comment on above: Performed By: #### C ANTOINETTE #### [facility] [address] [place] [address] Dr. Jamin Nicholas ALT [Catalytic activity/Vol] 29 U/L Normal 21-72 [facility] Comment on above: Performed By: #### C ANTOINETTE #### [facility] [address] [place] [address] Dr. Jamin Nicholas Anion gap [Moles/Vol] 13.7 mmol/L Normal [facility] Comment on above: Performed By: #### C ANTOINETTE #### [facility] [address] [place] [address] Dr. Jamin Nicholas AST [Catalytic activity/Vol] 65 U/L Critically high 17-59 [facility] Comment on above: Performed By: #### C ANTOINETTE #### [facility] [address] [place] [address] Dr. Jamin Nicholas Bilirubin [Mass/Vol] 0.4 mg/dL Normal 0.2-1.3 [facility] Comment on above: Performed By: #### C ANTOINETTE #### [facility] [address] [place] [address] Dr. Jamin Nicholas Calcium [Mass/Vol] 8.0 mg/dL Critically low 8.4-10.2 [facility] Comment on above: Performed By: #### C ANTOINETTE #### [facility] [address] [address] [address] Jamin Nicholas Chloride [Moles/Vol] 105 mmol/L Normal 98-107 [facility] Comment on above: Performed By: #### C ANTOINETTE #### [facility] [address] [place] [address] Dr. Jamin Nicholas CO2 [Moles/Vol] 24.8 mmol/L Normal 22.0-30.0 [facility] Comment on above: Performed By: #### C ANTOINETTE #### [facility] [address] [place] [address] Dr. Jamin Nicholas Creatinine [Mass/Vol] 1.02 mg/dL Normal 0.66-1.25 [facility] Comment on above: Performed By: #### C ANTOINETTE #### [facility] [address] [place] [address] Dr. Jamin Nicholas EGFR-AF KAZAKH >60 Normal >=60 [facility] Comment on above: Performed By: #### C ANTOINETTE #### [facility] [address] [place] [address] Dr. Jamin Nicholas EGFR-NON AF KAZAKH >60 Normal >=60 [facility] Comment on above: Performed By: #### C ANTOINETTE #### [facility] [address] [place] [address] Dr. Jamin Nicholas Globulin (S) [Mass/Vol] 2.6 g/dL Normal [facility] Comment on above: Performed By: #### C BCNINFA #### [facility] [address] [address] [address] Jamin Nicholas Glucose [Mass/Vol] 200 mg/dL Critically high 74-106 [facility] Comment on above: Performed By: #### C BCNINFA #### [facility] [address] [place] [address] Dr. Jamin Nicholas Potassium [Moles/Vol] 4.4 mmol/L Normal 3.4-5.0 [facility] Comment on above: Performed By: #### C ANTOINETTE #### [facility] [address] [place] [address] Dr. Jamin Nicholas Protein [Mass/Vol] 5.2 g/dL Critically low 6.1-8.2 [facility] Comment on above: Performed By: #### C ANTOINETTE #### [facility] [address] [place] [address] Dr. Jamin Nicholas Sodium [Moles/Vol] 139 mmol/L Normal 137-145 [facility] Comment on above: Performed By: #### C ANTOINETTE #### [facility] [address] [place] [address] Dr. Jamin Nicholas Urea nitrogen [Mass/Vol] 35.0 mg/dL Critically high 9.0-20.0 [facility] Comment on above: Performed By: #### Leanne CURRY #### [facility] [address] [place] [address] Dr. Jamin Nicholas Urea nitrogen/Creatinine [Mass ratio] 34.3 mg/mg Normal [facility] Comment on above: Performed By: #### Leanne CURRY #### [facility] [address] [place] [address] Dr. Jamin Nicholas CBC W MANUAL DIFFon 05-26-20 21 ATYPICAL LYMPH # Normal [facility] Comment on above: Performed By: #### Leanne CURRY #### [facility] [address] [place] [address] Dr. Jmain Nicholas ATYPICAL LYMPH % Normal [facility] Comment on above: Performed By: #### Leanne CURRY #### [facility] [address] [place] [address] Dr. Jamin Nicholas BAND # Normal 0.0-0.3 [facility] Comment on above: Performed By: #### C ANTOINETTE #### [facility] [address] [place] [address] Dr. Jamin Nicholas BAND % Normal 0-5 [facility] Comment on above: Performed By: #### C ANTOINETTE #### [facility] [address] [place] [address] Dr. Jamin Nicholas BASOM # 0.00 103/ul Normal 0.00-0.10 [facility] Comment on above: Performed By: #### C ANTOINETTE #### [facility] [address] [address] [address] Jamin Nicholas BASOM % 0.0 % Critically low 0.2-2.0 [facility] Comment on above: Performed By: #### C BCMAN #### [facility] [address] [address] [address] Jamin Nicholas BLAST # Normal [facility] Comment on above: Performed By: #### C BCMAN #### [facility] [address] [address] [address] Jamin Nicholas BLAST % Normal [facility] Comment on above: Performed By: #### C BCMAN #### [facility] [address] [address] [address] Jamin Nicholas CORRECTED WBC Normal 4.0-11.0 [facility] Comment on above: Performed By: #### C BCNINFA #### [facility] [address] [place] [address] Dr. Jamin Nicholas EOS # 0.00 103/ul Normal 0.00-0.70 [facility] Comment on above: Performed By: #### C BCNINFA #### [facility] [address] [place] [address] Dr. Jamin Nicholas EOS% 0.0 % Critically low 0.9-7.0 [facility] Comment on above: Performed By: #### C BCNINFA #### [facility] [address] [place] [address] Dr. Jamin Nicholas HCT 29.6 % Critically low 42.0-54.0 [facility] Comment on above: Performed By: #### C BCMAN #### [facility] [address] [place] [address] Dr. Jamin Nicholas HGB 9.9 g/dl Critically low 14.0-18.0 [facility] Comment on above: Performed By: #### C BCMAN #### [facility] [address] [place] [address] Dr. Jamin Nicholas LYMPHM # 0.42 103/ul Critically low 1.20-3.80 [facility] Comment on above: Performed By: #### C ANTOINETTE #### [facility] [address] [address] [address] Jamin Nicholas LYMPHM% 4.0 % Critically low 20.5-60.0 [facility] Comment on above: Performed By: #### C ANTOINETTE #### [facility] [address] [place] [address] Dr. Jamin Nicholas MCH 31.8 pg Normal 25.9-34.0 [facility] Comment on above: Performed By: #### C ANTOINETTE #### [facility] [address] [place] [address] Dr. Jamin Nicholas MCHC 33.4 g/dl Normal 29.9-35.2 [facility] Comment on above: Performed By: #### C ANTOINETTE #### [facility] [address] [place] [address] Dr. Jamin Nicholas MCV 95.2 fL Critically high 80.0-94.0 [facility] Comment on above: Performed By: #### C ANTOINETTE #### [facility] [address] [place] [address] Dr. Jamin Nicholas METAMYELOCYTE # Normal [facility] Comment on above: Performed By: #### C ANTOINETTE #### [facility] [address] [place] [address] Dr. Jamin Nicholas METAMYELOCYTE % Normal [facility] Comment on above: Performed By: #### C ANTOINETTE #### [facility] [address] [place] [address] Dr. Jamin Nicholas MONOM# 0.10 103/ul Critically low 0.30-0.80 [facility] Comment on above: Performed By: #### C ANTOINETTE #### [facility] [address] [place] [address] Dr. Jamin Nicholas MONOM% 1.0 % Critically low 1.7-12.0 [facility] Comment on above: Performed By: #### C ANTOINETTE #### [facility] [address] [place] [address] Dr. Jamin Nicholas MPV 10.0 fL Normal 9.5-13.5 [facility] Comment on above: Performed By: #### C ANTOINETTE #### [facility] [address] [place] [address] Dr. Jamin Nicholas MYELOCYTE # Normal [facility] Comment on above: Performed By: #### C ANTOINETTE #### [facility] [address] [place], [place] [id number] Dr. Jamin Nicholas MYELOCYTE % Normal [facility] Comment on above: Performed By: #### C ANTOINETTE #### [facility] [address] [place] [address] Dr. Jamin Nicholas NRBC Normal [facility] Comment on above: Performed By: #### C ANTOINETTE #### [facility] [address] [place] [address] Dr. Jamin Nicholas PLT 144 103/ul Critically low 150-450 [facility] Comment on above: Performed By: #### C ANTOINETTE #### [facility] [address] [place] [address] Dr. Jamin Nicholas RBC 3.11 106/ul Critically low 4.70-6.10 [facility] Comment on above: Performed By: #### C ANTOINETTE #### [facility] [address] [place] [address] Dr. Jamin Nicholas RDW 13.0 % Normal 11.0-15.0 [facility] Comment on above: Performed By: #### C ANTOINETTE #### [facility] [address] [place] [address] Dr. Jamin Nicholas SEG # 9.88 103/ul Critically high 1.40-6.50 [facility] Comment on above: Performed By: #### C ANTOINETTE #### [facility] [address] [place] [address] Dr. Jamin Nicholas SEG % 95.0 % Critically high 43.0-75.0 [facility] Comment on above: Performed By: #### C ANTOINETTE #### [facility] [address] [place] [address] Dr. Jamin Nicholas WBC 10.4 103/ul Normal 4.0-11.0 [facility] Comment on above: Performed By: #### C ANTOINETTE #### [facility] [address] [place] [address] Dr. Jamin Nicholas PROF 14(COMP METB)on 021 Albumin [Mass/Vol] 2.3 g/dL Critically low 3.5-5.0 [facility] Comment on above: Performed By: #### C ANTOINETTE #### [facility] [address] [place] [address] Dr. Jamin Nicholas Albumin/Globulin [Mass ratio] 0.7 {ratio} Normal [facility] Comment on above: Performed By: #### C ANTOINETTE #### [facility] [address] [place] [address] Dr. Jamin Nicholas ALP [Catalytic activity/Vol] 45 U/L Normal 38-126 [facility] Comment on above: Performed By: #### C ANTOINETTE #### [facility] [address] [place] [address] Dr. Jamin Nicholas ALT [Catalytic activity/Vol] 25 U/L Normal 21-72 [facility] Comment on above: Performed By: #### C ANTOINETTE #### [facility] [address] [place] [address] Dr. Jamin Nicholas Anion gap [Moles/Vol] 13.2 mmol/L Normal [facility] Comment on above: Performed By: #### C ANTOINETTE #### [facility] [address] [place] [address] Dr. Jamin Nicholas AST [Catalytic activity/Vol] 63 U/L Critically high 17-59 [facility] Comment on above: Performed By: #### C ANTOINETTE #### [facility] [address] [place] [address] Dr. Jamin Nicholas Bilirubin [Mass/Vol] 0.4 mg/dL Normal 0.2-1.3 [facility] Comment on above: Performed By: #### C ANTOINETTE #### [facility] [address] [place] [address] Dr. Jamin Nicholas Calcium [Mass/Vol] 8.0 mg/dL Critically low 8.4-10.2 [facility] Comment on above: Performed By: #### C BCMAN #### [facility] [address] [place] [address] Dr. Jamin Nicholas Chloride [Moles/Vol] 103 mmol/L Normal 98-107 [facility] Comment on above: Performed By: #### C BCMAN #### [facility] [address] [place] [address] Dr. Jamin Nicholas CO2 [Moles/Vol] 25.0 mmol/L Normal 22.0-30.0 [facility] Comment on above: Performed By: #### C BCNINFA #### [facility] [address] [place] [address] Dr. Jamin Nicholas Creatinine [Mass/Vol] 1.11 mg/dL Normal 0.66-1.25 [facility] Comment on above: Performed By: #### C BCNINFA #### [facility] [address] [place] [address] Dr. Jamin Nicholas EGFR-AF KAZAKH >60 Normal >=60 [facility] Comment on above: Performed By: #### C BCMAN #### [facility] [address] [place] [address] Dr. Jamin Nicholas EGFR-NON AF KAZAKH >60 Normal >=60 [facility] Comment on above: Performed By: #### C BCMAN #### [facility] [address] [place] [address] Dr. Jamin Nicholas Globulin (S) [Mass/Vol] 3.3 g/dL Normal [facility] Comment on above: Performed By: #### C BCMAN #### [facility] [address] [place] [address] Dr. Jamin Nicholas Glucose [Mass/Vol] 159 mg/dL Critically high 74-106 [facility] Comment on above: Performed By: #### C BCMAN #### [facility] [address] [place] [address] Dr. Jamin Nicholas Potassium [Moles/Vol] 4.2 mmol/L Normal 3.4-5.0 [facility] Comment on above: Performed By: #### C BCMAN #### [facility] [address] [place] [address] Dr. Jamin Nicholas Protein [Mass/Vol] 5.6 g/dL Critically low 6.1-8.2 [facility] Comment on above: Performed By: #### C BCMAN #### [facility] [address] [place] [address] Dr. Jamin Nicholas Sodium [Moles/Vol] 137 mmol/L Normal 137-145 [facility] Comment on above: Performed By: #### C BCMAN #### [facility] [address] [place] [address] Dr. Jamin Nicholas Urea nitrogen [Mass/Vol] 31.0 mg/dL Critically high 9.0-20.0 [facility] Comment on above: Performed By: #### C BCMAN #### [facility] [address] [place] [address] Dr. Jamin Nicholas Urea nitrogen/Creatinine [Mass ratio] 27.9 mg/mg Normal [facility] Comment on above: Performed By: #### C BCMAN #### [facility] [address] [place] [address] Dr. Jamin Nicholas CBC W MANUAL DIFFon 05-25-20 21 ATYPICAL LYMPH # Normal [facility] Comment on above: Performed By: #### C MP #### [facility] [address] [place] [address] Dr. Jamin Nicholas ATYPICAL LYMPH % Normal [facility] Comment on above: Performed By: #### C MP #### [facility] [address] [place] [address] Dr. Jamin Nicholas BAND # Normal 0.0-0.3 [facility] Comment on above: Performed By: #### C MP #### [facility] [address] [place] [address] Dr. Jamin Nicholas BAND % Normal 0-5 [facility] Comment on above: Performed By: #### C MP #### [facility] [address] [place] [address] Dr. Jamin Nicholas BASOM # 0.00 103/ul Normal 0.00-0.10 [facility] Comment on above: Performed By: #### C MP #### [facility] [address] [place] [address] Dr. Jamin Nicholas BASOM % 0.0 % Critically low 0.2-2.0 [facility] Comment on above: Performed By: #### C MP #### [facility] [address] [place] [address] Dr. Jamin Nicholas BLAST # Normal [facility] Comment on above: Performed By: #### C MP #### [facility] [address] [place] [address] Dr. Jamin Nicholas BLAST % Normal [facility] Comment on above: Performed By: #### C MP #### [facility] [address] [place] [address] Dr. Jamin Nicholas CORRECTED WBC Normal 4.0-11.0 [facility] Comment on above: Performed By: #### C MP #### [facility] [address] [place] [address] Dr. Jamin Nicholas EOS # 0.00 103/ul Normal 0.00-0.70 [facility] Comment on above: Performed By: #### C MP #### [facility] [address] [place] [address] Dr. Jamin Nicholas EOS% 0.0 % Critically low 0.9-7.0 [facility] Comment on above: Performed By: #### C MP #### [facility] [address] [place] [address] Dr. Jamin Nicholas HCT 29.4 % Critically low 42.0-54.0 [facility] Comment on above: Performed By: #### C MP #### [facility] [address] [place] [address] Dr. Jamin Nicholas HGB 10.0 g/dl Critically low 14.0-18.0 [facility] Comment on above: Performed By: #### C MP #### [facility] [address] [place] [address] Dr. Jamin Nicholas LYMPHM # 0.20 103/ul Critically low 1.20-3.80 [facility] Comment on above: Performed By: #### C MP #### [facility] [address] [place] [address] Dr. Jamin Nicholas LYMPHM% 2.0 % Critically low 20.5-60.0 [facility] Comment on above: Performed By: #### C MP #### [facility] [address] [place] [address] Dr. Jamin Nicholas MCH 32.5 pg Normal 25.9-34.0 [facility] Comment on above: Performed By: #### C MP #### [facility] [address] [place] [address] Dr. Jamin Nicholas MCHC 34.0 g/dl Normal 29.9-35.2 [facility] Comment on above: Performed By: #### C MP #### [facility] [address] [place] [address] Dr. Jamin Nicholas MCV 95.5 fL Critically high 80.0-94.0 [facility] Comment on above: Performed By: #### C MP #### [facility] [address] [place] [address] Dr. Jamin Nicholas METAMYELOCYTE # Normal [facility] Comment on above: Performed By: #### C MP #### [facility] [address] [place] [address] Dr. Jamin Nicholas METAMYELOCYTE % Normal [facility] Comment on above: Performed By: #### C MP #### [facility] [address] [place] [address] Dr. Jamin Nicholas MONOM# 0.81 103/ul Critically high 0.30-0.80 [facility] Comment on above: Performed By: #### C MP #### [facility] [address] [place] [address] Dr. Jamin Nicholas MONOM% 8.0 % Normal 1.7-12.0 [facility] Comment on above: Performed By: #### C MP #### [facility] [address] [address] [address] Jamin Nicholas MPV 10.2 fL Normal 9.5-13.5 [facility] Comment on above: Performed By: #### C MP #### [facility] [address] [place] [address] Dr. Jamin Nicholas MYELOCYTE # Normal [facility] Comment on above: Performed By: #### C MP #### [facility] [address] [place] [address] Dr. Jamin Nicholas MYELOCYTE % Normal [facility] Comment on above: Performed By: #### C MP #### [facility] [address] [place] [address] Dr. Jamin Nicholas NRBC Normal [facility] Comment on above: Performed By: #### C MP #### [facility] [address] [place] [address] Dr. Jamin Nicholas PLT 112 103/ul Critically low 150-450 [facility] Comment on above: Performed By: #### C MP #### [facility] [address] [place] [address] Dr. Jamin Nicholas RBC 3.08 106/ul Critically low 4.70-6.10 [facility] Comment on above: Performed By: #### C MP #### [facility] [address] [place] [address] Dr. Jamin Nicholas RDW 13.0 % Normal 11.0-15.0 [facility] Comment on above: Performed By: #### C MP #### [facility] [address] [place] [address] Dr. Jamin Nicholas SEG # 9.09 103/ul Critically high 1.40-6.50 [facility] Comment on above: Performed By: #### C MP #### [facility] [address] [place] [address] Dr. Jamin Nicholas SEG % 90.0 % Critically high 43.0-75.0 [facility] Comment on above: Performed By: #### C MP #### [facility] [address] [place] [address] Dr. Jamin Nicholas WBC 10.1 103/ul Normal 4.0-11.0 [facility] Comment on above: Performed By: #### C MP #### [facility] [address] [place] [address] Dr. Jamin Nicholas POINT OF CARE GLUCOSEon 10-0 Glucose [Mass/Vol] 158 mg/dL Critically high 74-106 [facility] Comment on above: Performed By: #### C MP #### [facility] [address] [address] [address] Jamin Nicholas PROF CHEM 8 (BAS METB)on Anion gap [Moles/Vol] 13.0 mmol/L Normal [facility] Comment on above: Performed By: #### B MP #### [facility] [address] [place] [address] Dr. Jamin Nicholas Calcium [Mass/Vol] 8.1 mg/dL Critically low 8.4-10.2 [facility] Comment on above: Performed By: #### B MP #### [facility] [address] [place] [address] Dr. Jamin Nicholas Chloride [Moles/Vol] 99 mmol/L Normal 98-107 [facility] Comment on above: Performed By: #### B MP #### [facility] [address] [place] [address] Dr. Jamin Nicholas CO2 [Moles/Vol] 25.3 mmol/L Normal 22.0-30.0 [facility] Comment on above: Performed By: #### B MP #### [facility] [address] [place] [address] Dr. Jamin Nicholas Creatinine [Mass/Vol] 1.65 mg/dL Critically high 0.66-1.25 [facility] Comment on above: Performed By: #### B MP #### [facility] [address] [place] [address] Dr. Jamin Nicholas EGFR-AF KAZAKH 49 mL/min/1.73m2 Critically low >=60 [facility] Comment on above: Performed By: #### B MP #### [facility] [address] [address] [address] Jamin Nicholas EGFR-NON AF KAZAKH 41 mL/min/1.73m2 Critically low >=60 [facility] Comment on above: Performed By: #### B MP #### [facility] [address] [address] [address] Jamin Nicholas Glucose [Mass/Vol] 178 mg/dL Critically high 74-106 [facility] Comment on above: Performed By: #### B MP #### [facility] [address] [address] [address] Jamin Nicholas Potassium [Moles/Vol] 4.3 mmol/L Normal 3.4-5.0 [facility] Comment on above: Performed By: #### B MP #### [facility] [address] [place] [address] Dr. Jamin Nicholas Sodium [Moles/Vol] 133 mmol/L Critically low 137-145 [facility] Comment on above: Performed By: #### B MP #### [facility] [address] [place] [address] Dr. Jamin Nicholas Urea nitrogen [Mass/Vol] 44.0 mg/dL Critically high 9.0-20.0 [facility] Comment on above: Performed By: #### B MP #### [facility] [address] [place] [address] Dr. Jamin Nicholas Urea nitrogen/Creatinine [Mass ratio] 26.7 mg/mg Normal [facility] Comment on above: Performed By: #### B MP #### [facility] [address] [place] [address] Dr. Jamin Nicholas BNPon 05-24-2021 Natriuretic peptide B (Bld) [Mass/Vol] 288.0 pg/mL Normal <=1,800.0 [facility] Comment on above: Performed By: #### C ANTOINETTE #### [facility] [address] [place] [address] Dr. Jamin Nicholas CBC W MANUAL DIFFon 05-24-20 21 ATYPICAL LYMPH # Normal [facility] Comment on above: Performed By: #### C ANTOINETTE #### [facility] [address] [place] [address] Dr. Jamin Nicholas ATYPICAL LYMPH % Normal [facility] Comment on above: Performed By: #### C BCMAN #### [facility] [address] [place] [address] Dr. Jamin Nicholas BAND # Normal 0.0-0.3 [facility] Comment on above: Performed By: #### C BCMAN #### [facility] [address] [place] [address] Dr. Jamin Nicholas BAND % Normal 0-5 [facility] Comment on above: Performed By: #### C BCNINFA #### [facility] [address] [place] [address] Dr. Jamin Nicholas BASOM # 0.00 103/ul Normal 0.00-0.10 [facility] Comment on above: Performed By: #### C BCNINFA #### [facility] [address] [place] [address] Dr. Jamin Nicholas BASOM % 0.0 % Critically low 0.2-2.0 [facility] Comment on above: Performed By: #### C ANTOINETTE #### [facility] [address] [place] [address] Dr. Jamin Nicholas BLAST # Normal [facility] Comment on above: Performed By: #### C ANTOINETTE #### [facility] [address] [place] [address] Dr. Jamin Nicholas BLAST % Normal [facility] Comment on above: Performed By: #### C BCNINFA #### [facility] [address] [place] [address] Dr. Jamin Nicholas CORRECTED WBC Normal 4.0-11.0 [facility] Comment on above: Performed By: #### C BCNINFA #### [facility] [address] [place] [address] Dr. Jamin Nicholas EOS # 0.00 103/ul Normal 0.00-0.70 [facility] Comment on above: Performed By: #### C ANTOINETTE #### [facility] [address] [place] [address] Dr. Jamin Nicholas EOS% 0.0 % Critically low 0.9-7.0 [facility] Comment on above: Performed By: #### C ANTOINETTE #### [facility] [address] [place] [address] Dr. Jamin Nicholas HCT 34.3 % Critically low 42.0-54.0 [facility] Comment on above: Performed By: #### C ANTOINETTE #### [facility] [address] [address] [address] Jamin Nicholas HGB 11.7 g/dl Critically low 14.0-18.0 [facility] Comment on above: Performed By: #### C ANTOINETTE #### [facility] [address] [place] [address] Dr. Jamin Nicholas LYMPHM # 0.51 103/ul Critically low 1.20-3.80 [facility] Comment on above: Performed By: #### C ANTOINETTE #### [facility] [address] [place] [address] Dr. Jamin Nicholas LYMPHM% 6.0 % Critically low 20.5-60.0 [facility] Comment on above: Performed By: #### C ANTOINETTE #### [facility] [address] [place] [address] Dr. Jamin Nicholas MCH 32.2 pg Normal 25.9-34.0 [facility] Comment on above: Performed By: #### C ANTOINETTE #### [facility] [address] [place] [address] Dr. Jamin Nicholas MCHC 34.1 g/dl Normal 29.9-35.2 [facility] Comment on above: Performed By: #### C ANTOINETTE #### [facility] [address] [address] [address] Jamin Nicholas MCV 94.5 fL Critically high 80.0-94.0 [facility] Comment on above: Performed By: #### C ANTOINETTE #### [facility] [address] [place] [address] Dr. Jamin Nicholas METAMYELOCYTE # Normal [facility] Comment on above: Performed By: #### C ANTOINETTE #### [facility] [address] [address] [address] Jamin Nicholas METAMYELOCYTE % Normal [facility] Comment on above: Performed By: #### C ANTOINETTE #### [facility] [address] [address] [address] Jamin Nicholas MONOM# 0.00 103/ul Critically low 0.30-0.80 [facility] Comment on above: Performed By: #### C ANTOINETTE #### [facility] [address] [address] [address] Jamin Nicholas MONOM% 0.0 % Critically low 1.7-12.0 [facility] Comment on above: Performed By: #### C ANTOINETTE #### [facility] [address] [place] [address] Dr. Jamin Nicholas MPV 10.2 fL Normal 9.5-13.5 [facility] Comment on above: Performed By: #### Leanne CURRY #### [facility] [address] [place] [address] Dr. Jamin Nicholas MYELOCYTE # Normal [facility] Comment on above: Performed By: #### Leanne CURRY #### [facility] [address] [place] [address] Dr. Jamin Nicholas MYELOCYTE % Normal [facility] Comment on above: Performed By: #### Leanne CURRY #### [facility] [address] [place] [address] Dr. Jamin Nicholas NRBC Normal [facility] Comment on above: Performed By: #### Leanne CURRY #### [facility] [address] [place] [address] Dr. Jamin Nicholas PLT 135 103/ul Critically low 150-450 [facility] Comment on above: Performed By: #### C ANTOINETTE #### [facility] [address] [place] [address] Dr. Jamin Nicholas RBC 3.63 106/ul Critically low 4.70-6.10 [facility] Comment on above: Performed By: #### Leanne CURRY #### [facility] [address] [address] [address] Jamin Nicholas RDW 13.1 % Normal 11.0-15.0 [facility] Comment on above: Performed By: #### C ANTOINETTE #### [facility] [id number] Jamin Nicholas SEG # 7.99 103/ul Critically high 1.40-6.50 [facility] Comment on above: Performed By: #### C ANTOINETTE #### [facility] [address] [address] [address] Jamin Nicholas SEG % 94.0 % Critically high 43.0-75.0 [facility] Comment on above: Performed By: #### C ANTOINETTE #### [facility] [address] [address] [address] Jamin Nicholas WBC 8.5 103/ul Normal 4.0-11.0 [facility] Comment on above: Performed By: #### Leanne CURRY #### [facility] [address] [address] [address] Jamin Nicholas CULTURE BLOODon 05-24-2021 Microscopic examination of blood, culture Culture Observations: NO GROWTH AT 5 DAYS. Normal [facility] Comment on above: Performed By: #### C MP #### [facility] [id number] Jamin Nicholas Microscopic examination of blood, culture Culture Observations: NO GROWTH AT 5 DAYS. Normal [facility] Comment on above: Performed By: #### C MP #### [facility] [address] [address] [address] Jamin Nicholas Covid-19 PCR (CVDTB)on SARS-CoV-2 (COVID-19) RNA ELLI+probe Ql (Unsp spec) Detected Critically abnormal NOT DETECTED [facility] Comment on above: Result Comment: This test is not yet approved or cleared by the [place] FDA. When there are no FDA-approved or cleared tests available, and other criteria are met, FDA can make tests available under an emergency access mechanism called an Emergency Use Authorization (EUA). The EUA for this test is supported by the [place] of Health and Human Service's (HHS's) declaration that circumstances exist to justify the emergency use of in vitro diagnostics for the detection and/or diagnosis of the virus that causes COVID-19. This EUA will remain in effect (meaning this test can be used) for the duration of the COVID-19 declaration justifying emergency of IVDs, unless it is terminated or revoked by FDA (after which the test may no longer be used). Performed By: #### C ANTOINETTE #### [facility] [address] [place] [address] Dr. Jamin Nicholas LACTATE/LACTIC ACIDon 2020 Lactate [Moles/Vol] 1.3 mmol/L Normal 0.7-2.0 [facility] Comment on above: Performed By: #### L ACT #### [facility] [address] [place] [address] Dr. Jamin Nicholas PROF 14(COMP METB)on 021 Albumin [Mass/Vol] 3.4 g/dL Critically low 3.5-5.0 [facility] Comment on above: Performed By: #### C ANTOINETTE #### [facility] [address] [place] [address] Dr. Jamin Nicholas Albumin/Globulin [Mass ratio] 0.9 {ratio} Normal [facility] Comment on above: Performed By: #### C ANTOINETTE #### [facility] [address] [place] [address] Dr. Jamin Nicholas ALP [Catalytic activity/Vol] 59 U/L Normal 38-126 [facility] Comment on above: Performed By: #### C ANTOINETTE #### [facility] [address] [place] [address] Dr. Jamin Nicholas ALT [Catalytic activity/Vol] 29 U/L Normal 21-72 [facility] Comment on above: Performed By: #### C ANTOINETTE #### [facility] [address] [place] [address] Dr. Jamin Nicholas Anion gap [Moles/Vol] 14.7 mmol/L Normal [facility] Comment on above: Performed By: #### C ANTOINETTE #### [facility] [address] [address] [address] Jamin Nicholas AST [Catalytic activity/Vol] 67 U/L Critically high 17-59 [facility] Comment on above: Performed By: #### C BCMAN #### [facility] [address] [address] [address] Jamin Nicholas Bilirubin [Mass/Vol] 0.5 mg/dL Normal 0.2-1.3 [facility] Comment on above: Performed By: #### C BCNINFA #### [facility] [address] [address] [address] Jamin Nicholas Calcium [Mass/Vol] 9.1 mg/dL Normal 8.4-10.2 [facility] Comment on above: Performed By: #### C ANTOINETTE #### [facility] [address] [place] [address] Dr. Jamin Nicholas Chloride [Moles/Vol] 96 mmol/L Critically low 98-107 [facility] Comment on above: Performed By: #### C ANTOINETTE #### [facility] [address] [address] [address] Jamin Nicholas CO2 [Moles/Vol] 25.2 mmol/L Normal 22.0-30.0 [facility] Comment on above: Performed By: #### C ANTOINETTE #### [facility] [address] [address] [address] Jamin Nicholas Creatinine [Mass/Vol] 1.72 mg/dL Critically high 0.66-1.25 [facility] Comment on above: Performed By: #### C BCNINFA #### [facility] [address] [address] [address] Jamin Nicholas EGFR-AF KAZAKH 47 mL/min/1.73m2 Critically low >=60 [facility] Comment on above: Performed By: #### C BCMAN #### [facility] [address] [address] [address] Jamin Nicholas EGFR-NON AF KAZAKH 39 mL/min/1.73m2 Critically low >=60 [facility] Comment on above: Performed By: #### C ANTOINETTE #### [facility] [address] [address] [address] Jamin Nicholas Globulin (S) [Mass/Vol] 3.7 g/dL Normal [facility] Comment on above: Performed By: #### C ANTOINETTE #### [facility] [address] [address] [address] Jamin Nicholas Glucose [Mass/Vol] 89 mg/dL Normal 74-106 [facility] Comment on above: Performed By: #### C ANTOINETTE #### [facility] [address] [address] [address] Jamin Nicholas Potassium [Moles/Vol] 3.9 mmol/L Normal 3.4-5.0 [facility] Comment on above: Performed By: #### C ANTOINETTE #### [facility] [address] [place] [address] Dr. Jamin Nicholas Protein [Mass/Vol] 7.1 g/dL Normal 6.1-8.2 [facility] Comment on above: Performed By: #### C ANTOINETTE #### [facility] [address] [address] [address] Jamin Nicholas Sodium [Moles/Vol] 132 mmol/L Critically low 137-145 [facility] Comment on above: Performed By: #### C ANTOINETTE #### [facility] [address] [address] [address] Jamin Nicholas Urea nitrogen [Mass/Vol] 45.0 mg/dL Critically high 9.0-20.0 [facility] Comment on above: Performed By: #### C ANTOINETTE #### [facility] [address] [address] [address] Jamin Nicholas Urea nitrogen/Creatinine [Mass ratio] 26.2 mg/mg Normal [facility] Comment on above: Performed By: #### C ANTOINETTE #### [facility] [address] [address] [address] Jamin Nicholas SYMPTOMATIC COVID-19 ANTIGEN on 05-24-2021 EUA Statement SEE BELOW Normal [facility] Comment on above: Result Comment: This test has not been FDA cleared or approved, but has been authorized by the FDA under an Emergency Use Authorization (EUA) for use by authorized laboratories certified under CLIA that meet the requirements to perform moderate or high complexity testing. This test has been authorized only for the detection of proteins from SARS-CoV-2, not for any other viruses or pathogens. The emergency use of this test is authorized for the duration of the declaration that circumstances exist justifying the authorization of emergency use of in vitro diagnostic tests for detection and/or diagnosis of Covid-19 under section 564(b)(1) of the Act, 21 U.S.C. 360bbb-3(b)(1), unless the declaration is terminated or authorization is revoked sooner. Performed By: #### C ROJELIOAGS #### [facility] [address] [place] [address] Dr. Jamin Nicholas SARS-CoV-2 (COVID-19) RNA ELLI+probe Ql (Unsp spec) Positive Critically abnormal NEGATIVE [facility] Comment on above: Performed By: #### C VDAGS #### [facility] [address] [address] [address] Jamin Nicholas TROPONIN, HIGH SENSITIVITYon 05-24-2021 HSTROP 17.0 pg/mL Normal 4.0-42.2 [facility] Comment on above: Result Comment: CUT- OFF POINTS HAVE BEEN ESTABLISHED BASED ON THE FOURTH UNIVERSAL DEFINITIONS OF MYOCARDIAL INFARCTION. THE UPPER REFERENCE LIMIT (URL) OF TROPONIN, DEFINED THE 99TH PERCENTILE OF cTnI DISTRIBUTION IN A REFERENCE POPULATION, HAS BEEN CONFIRMED THE DECISION THRESHOLD FOR [place] DIAGNOSIS. Performed By: #### C BCMAN #### [facility] [address] [place] [address] Dr. Jamin Nicholas XR CHEST 1 Von 05-24-2021 SARS-CoV-2 (COVID-19) RNA ELLI+probe Ql (Unsp spec) EXAM: XR CHEST 1 V HISTORY: The patient is a 75-year-old male with cough and fever. Covid positive. COMPARISON: 04/07/2018. FINDINGS: The lungs are relatively well-inflated. There are large confluent airspace infiltrates within both lungs. No pleural effusions or pneumothoraces are seen. The cardiac silhouette is enlarged. The trachea is midline. IMPRESSION: Bilateral pneumonia. Electronically authenticated by: SUKH SOARES Date: 2021-05-24 21:57 Normal [facility] Vital Signs Date Time Vital Sign Value Performing Clinician Facility 04-29-2025 13:45-0400 Diastolic blood pressure 86 mm[Hg] Huber Henning II Work Phone: [facility] 04-29-2025 13:45-0400 Heart rate 77 /min Huber Henning II Work Phone: [facility] 04-29-2025 13:45-0400 Respiratory rate 20 /min Huberrosendo Henning II Work Phone: [facility] 04-29-2025 13:45-0400 SaO2% (BldA) [Mass fraction] 96 % Huber Henning II Work Phone: [facility] 04-29-2025 13:45-0400 Systolic blood pressure 162 mm[Hg] Huberrosendo Henning II Work Phone: [facility] 04-29-2025 13:04-0400 Body height 2133.6 cm Huber Henning II Work Phone: [facility] 04-29-2025 13:04-0400 Body weight 97 kg Huber Henning II Work Phone: [facility] 04-29-2025 13:03-0400 Inhaled oxygen flow rate 2 L/min Huber Henning II Work Phone: [facility] 04-02-2025 13:46-0400 Diastolic blood pressure 72 mm[Hg] Amrit Sanchez MD Work Phone: [facility] 04-02-2025 13:46-0400 Systolic blood pressure 128 mm[Hg] Amrit Sanchez MD Work Phone: [facility] 04-02-2025 13:43-0400 Body height 175.3 cm Amrit Sanchez MD Work Phone: [facility] 04-02-2025 13:43-0400 Body mass index (BMI) [Ratio] 31.6 kg/m2 Amrit Sanchez MD Work Phone: [facility] 04-02-2025 13:43-0400 Body weight 97.07 kg Amrit Sanchez MD Work Phone: [facility] 04-02-2025 13:43-0400 Heart rate 78 /min Amrit Sanchez MD Work Phone: [facility] 03-18-2025 08:39-0400 Body height 175.3 cm Huber Henning MD Work Phone: [facility] 03-18-2025 08:39-0400 Body mass index (BMI) [Ratio] 31.16 kg/m2 Huber Henning MD Work Phone: [facility] 03-18-2025 08:39-0400 Body weight 95.71 kg Huber Henning MD Work Phone: [facility] 03-18-2025 08:39-0400 Diastolic blood pressure 80 mm[Hg] Huber Henning MD Work Phone: [facility] 03-18-2025 08:39-0400 Heart rate 73 /min Huber Henning MD Work Phone: [facility] 03-18-2025 08:39-0400 SaO2% (BldA) [Mass fraction] 94 % Huber Henning MD Work Phone: [facility] 03-18-2025 08:39-0400 Systolic blood pressure 132 mm[Hg] Huber Henning MD Work Phone: [facility] 11-28-2024 08:17-0400 Body height 175.3 cm Huber Henning MD Work Phone: [facility] 11-28-2024 08:17-0400 Body mass index (BMI) [Ratio] 29.83 kg/m2 Huber Henning MD Work Phone: [facility] 11-28-2024 08:17-0400 Body weight 91.63 kg Huber Henning MD Work Phone: [facility] 11-28-2024 08:17-0400 Diastolic blood pressure 74 mm[Hg] Huber Henning MD Work Phone: [facility] 11-28-2024 08:17-0400 Heart rate 86 /min Huber Henning MD Work Phone: [facility] 11-28-2024 08:17-0400 SaO2% (BldA) [Mass fraction] 95 % Huber Henning MD Work Phone: [facility] 11-28-2024 08:17-0400 Systolic blood pressure 136 mm[Hg] Huber Henning MD Work Phone: [facility] 08-27-2024 08:11-0500 Body height 175.3 cm Huber Henning MD Work Phone: [facility] 08-27-2024 08:11-0500 Body mass index (BMI) [Ratio] 29.53 kg/m2 Huber Henning MD Work Phone: [facility] 08-27-2024 08:11-0500 Body weight 90.72 kg Huber Henning MD Work Phone: [facility] 08-27-2024 08:11-0500 Diastolic blood pressure 78 mm[Hg] Huber Henning MD Work Phone: [facility] 08-27-2024 08:11-0500 Heart rate 86 /min Huber Henning MD Work Phone: [facility] 08-27-2024 08:11-0500 SaO2% (BldA) [Mass fraction] 99 % Huber Henning MD Work Phone: [facility] 08-27-2024 08:11-0500 Systolic blood pressure 132 mm[Hg] Huber Henning MD Work Phone: [facility] 07-28-2024 11:15-0500 Diastolic blood pressure 83 mm[Hg] Vamsi AYALA [facility] 07-28-2024 11:15-0500 Mean blood pressure 102 mm[Hg] Vamsi AYALA [facility] 07-28-2024 11:15-0500 Systolic blood pressure 139 mm[Hg] Vamsi AYALA [facility] 07-28-2024 11:08-0500 Blood Pressure Location Vamsi AYALA [facility] 07-28-2024 11:08-0500 Body temperature 98.6 [degF] Vamsi AYALA [facility] 07-28-2024 11:08-0500 Diastolic blood pressure 86 mm[Hg] Vamsi AYALA [facility] 07-28-2024 11:08-0500 Heart rate 84 /min Vamsijorge luis AYALA [facility] 07-28-2024 11:08-0500 Respiratory rate 18 /min Vamsi AYALA [facility] 07-28-2024 11:08-0500 Systolic blood pressure 163 mm[Hg] Vamsi AYALA [facility] 04-30-2024 10:46-0400 Body mass index (BMI) [Ratio] 28.11 kg/m2 FREDDY Vaz MD Work Phone: [facility] 04-30-2024 10:46-0400 Body temperature 97.39 [degF] FREDDY Vaz MD Work Phone: [facility] 04-30-2024 10:46-0400 Body weight 88.27 kg FREDDY Vaz MD Work Phone: [facility] 04-30-2024 10:46-0400 Diastolic blood pressure 89 mm[Hg] FREDDY Vaz MD Work Phone: [facility] 04-30-2024 10:46-0400 Heart rate 77 /min FREDDY Vaz MD Work Phone: [facility] 04-30-2024 10:46-0400 Respiratory rate 18 /min FREDDY Vaz MD Work Phone: [facility] 04-30-2024 10:46-0400 SaO2% (BldA) [Mass fraction] 99 % FREDDY Vaz MD Work Phone: [facility] 04-30-2024 10:46-0400 Systolic blood pressure 162 mm[Hg] FREDDY Vaz MD Work Phone: [facility] 04-11-2023 08:53-0400 Body temperature 97 [degF] FREDDY Vaz MD Work Phone: [facility] 04-11-2023 08:53-0400 Body weight 92.08 kg FREDDY Vaz MD Work Phone: [facility] 04-11-2023 08:53-0400 Diastolic blood pressure 78 mm[Hg] FREDDY Vaz MD Work Phone: [facility] 04-11-2023 08:53-0400 Heart rate 72 /min FREDDY Vaz MD Work Phone: [facility] 04-11-2023 08:53-0400 Respiratory rate 16 /min FREDDY Vaz MD Work Phone: [facility] 04-11-2023 08:53-0400 SaO2% (BldA) [Mass fraction] 98 % FREDDY Vaz MD Work Phone: [facility] 04-11-2023 08:53-0400 Systolic blood pressure 133 mm[Hg] FREDDY Vaz MD Work Phone: [facility] 03-26-2023 10:32-0400 Blood Pressure Location Vamsi AYALA [facility] 03-26-2023 10:32-0400 Diastolic blood pressure 66 mm[Hg] Vamsi AYALA [facility] 03-26-2023 10:32-0400 Heart rate 82 /min Vamsi AYALA [facility] 03-26-2023 10:32-0400 Respiratory rate 16 /min Vamsi AYALA [facility] 03-26-2023 10:32-0400 Systolic blood pressure 119 mm[Hg] Vamsi AYALA [facility] 12-27-2021 08:30-0400 Blood Pressure Location Juanito Gonzales Jr. [facility] 12-27-2021 08:30-0400 Diastolic blood pressure 61 mm[Hg] Juanito Gonzales Jr. [facility] 12-27-2021 08:30-0400 Heart rate 78 /min Juanito Gonzales Jr. [facility] 12-27-2021 08:30-0400 Respiratory rate 16 /min Juanito Gonzales Jr. [facility] 12-27-2021 08:30-0400 Systolic blood pressure 121 mm[Hg] Juanito Gonzales Jr. [facility] Encounters Encounter Date Encounter Type Care Provider Facility Start: 07-31-2025 ambulatory Vamsi Camposi ty:[facility] Start: 05-06-2025 End: 05-06-2025 Clinisync Result Encounter Generic External Data Provider [facility] External Department Unsolicited Start: 05-06-2025 End: 05-06-2025 Clinisync Result Encounter Generic External Data Provider [facility] External Department Unsolicited Start: 04-29-2025 End: 04-29-2025 Patient encounter procedure Amrit Sanchez MD -Electrodiagnostics Work Phone: Start: 04-29-2025 End: 04-29-2025 ambulatory Huber Henning II Work Phone: [facility] Work Phone: Start: 04-02-2025 End: 04-02-2025 Office consultation new/estab patient 60 min Amrit Sanchez MD Work Phone: [facility] Comment on above: Nonrheumatic mitral valve regurgitation (Primary Dx); Mild aortic stenosis; Essential hypertension; Mixed hyperlipidemia; BMI 31.0-31.9,adult; Never smoked tobacco Start: 04-02-2025 End: 04-02-[address] [facility] Start: 03-18-2025 End: 03-18-2025 Bamboo flowsheet Huber Henning MD Work Phone: [facility] Start: 03-18-2025 End: 03-18-2025 Bamboo flowsheet Huber Henning MD Work Phone: [facility] Start: 03-18-2025 End: 03-18-2025 Office outpatient visit 25 minutes Huber Henning MD Work Phone: [facility] Comment on above: Nonrheumatic mitral valve regurgitation (Primary Dx); Polymyalgia rheumatica (HHS-HCC); Benign essential hypertension ; Pure hypercholesterolemia ; Neoplasm of uncertain behavior of skin of face Start: 03-18-2025 End: 03-18-2025 ambulatory HUBER HENNING Not Available Start: 01-09-2025 End: 01-09-2025 Patient encounter procedure Huber Henning II Work Phone: [facility] Work Phone: Start: 01-09-2025 End: 01-09-2025 ambulatory Huber Henning II Work Phone: [facility] Work Phone: Start: 11-28-2024 End: 11-28-2024 Bamboo flowsheet Huber Henning MD Work Phone: [facility] Start: 11-28-2024 End: 11-28-2024 Bamboo flowsheet Huber Henning MD Work Phone: [facility] Start: 11-28-2024 End: 11-28-2024 Office outpatient visit 25 minutes Huber Henning MD Work Phone: [facility] Comment on above: Benign essential hyp ertension (CMS/HCC) (Primary Dx); Polymyalgia rheumatica (CMS/HCC); Adenocarcinoma of prostate (CMS/HCC); Glenohumeral arthritis, right; FLYNN (dyspnea on exertion); Systolic murmur; Trapezius muscle spasm Start: 11-28-2024 End: 11-28-2024 ambulatory HUBER HENNING Not Available Start: 08-27-2024 End: 08-27-2024 Bamboo flowsheet Huber Henning MD Work Phone: [facility] Start: 08-27-2024 End: 08-27-2024 Bamboo flowsheet Huber Henning MD Work Phone: [facility] Start: 08-27-2024 End: 08-27-2024 Assay of hemosiderin, quant Huber Henning MD Work Phone: [facility] Work Phone: Start: 08-27-2024 End: 08-27-2024 Patient encounter procedure Huber Hennign MD Work Phone: [facility] Comment on above: Routine general medi reg examination at health care facility (Primary Dx); ACP (advance care planning); 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); Chronic kidney disease, stage 2 (mild); Malignant neoplasm of prostate ([facility]/HCC) Start: 08-27-2024 End: 08-27-2024 ambulatory HUBER Loving JUVENCIO Not Available Start: 07-28-2024 End: 07-28-2024 ambulatory Vamsi AYALA Facility:[facility] Start: 07-28-2024 End: 07-28-2024 Patient encounter procedure Vamsi AAYLA [facility] Start: 07-01-2024 End: 07-01-2024 Bamboo flowsheet Fantasma Randolph DO Work Phone: [facility] Start: 07-01-2024 End: 07-01-2024 Bamboo flowsheet Fantasma Randolph DO Work Phone: [facility] Start: 07-01-2024 End: 07-01-2024 Telephone encounter Fantasma Randolph DO Work Phone: [facility] Comment on above: referral Start: 07-01-2024 End: 07-01-2024 Office outpatient visit 10 minutes Fantasma Randolph DO Work Phone: [facility] Comment on above: Arthritis of left sh oulder region; S/P reverse total shoulder arthroplasty, left Start: 07-01-2024 End: 07-01-2024 ambulatory FANTASMA RANDOLPH Not Available Start: 06-02-2024 End: 06-02-2024 ambulatory Vamsi AYALA Facility:[facility] Start: 06-02-2024 End: 06-02-2024 Patient encounter procedure Vamsi AYALA [facility] Start: 04-30-2024 End: 04-30-2024 Patient encounter procedure Karthik Vaz MD Work Phone: [facility] Comment on above: History of prostate cancer (Primary Dx) Start: 04-30-2024 End: 04-30-2024 ambulatory Karthik VAZ Facility:[facility] Start: 04-22-2024 End: 04-23-2024 Clinisync Result Encounter Generic External Data Provider [facility] External Department Unsolicited Start: 04-22-2024 End: 04-23-2024 Clinisync Result Encounter Generic External Data Provider [facility] External Department Unsolicited Start: 04-22-2024 End: 04-22-2024 Telephone encounter Main Bosch MD Work Phone: [facility] Comment on above: Orders Start: 04-01-2024 End: 04-01-2024 ambulatory FANTASMA Brie DIANA Not Available Start: 04-11-2023 End: 04-11-2023 Patient encounter procedure Karthik Vza MD Work Phone: [facility] Comment on above: History of prostate cancer (Primary Dx) Start: 04-04-2023 Telephone encounter Karthik Vaz MD Work Phone: [facility] Comment on above: Lab Orders Start: 03-26-2023 End: 03-26-2023 Patient encounter procedure Vamsi AYALA [facility] Start: 02-13-2022 End: 02-14-[address] SYDNEE VAZ Facility:[facility] Start: 12-27-2021 End: 12-27-2021 Patient encounter procedure Juanito Gonzales Jr. [facility] Start: 12-13-2021 End: 12-13-[address] SILKE GONZALES Facility:[facility] Start: 05-25-2021 End: 06-01-2021 Evaluation and management of inpatient CLEMENTINE ANDERSON Facility:[facility] Procedures Date Procedure Procedure Detail Performing Clinician Start: 05-06-2025 MHPT PSA, DIAGNOSTIC Ge neric External Data Provider Start: 04-02-2025 Ecg routine ecg w/le ast 12 lds w/i&r Amrit Sanchez MD Work Phone: Start: 03-18-2025 Lipid 1996 panel - S jr or Plasma Amrit Sanchez MD Work Phone: Start: 07-01-2024 Radex shoulder compl ete minimum 2 views Fantasma Randolph DO Work Phone: Start: 04-22-2024 MHPT PSA, DIAGNOSTIC Ge neric External Data Provider Start: 04-22-2024 PSA screening [facility] Start: 02-19-2023 H/O: artificial joint Presence of left artificial shoulder joint Generic Provider Start: 02-14-2023 PSA screening [facility] Start: 02-13-2022 PSA screening CLEMENTINE STARK Comment on above: Performed By: #### C [facility] #### [facility] [address] [place] [address] Dr. Jamin Nicholas Start: 03-20-2018 Intracavitary brachytherapy Juanito Gonzales Jr. Arthroplasty Juanito Dyer Comment on above: Left shoulder. Extraction of cataract Feliciano Gonzales Jr. Mouth repair Juanito Dyer Comment on above: R side wired jaw skin cancer removal Juanito redmond Jr. Plan of Treatment Date Care Activity Detail Author Start: 02-21-2033 DTaP/Tdap/Td Vaccines (2 - Td or Tdap) DTaP/Tdap/Td Vaccines (2 - Td or Tdap) [facility] Start: 02-21-2033 Urine microalbumin profile DTaP,Tdap,Td Vaccine (2 - Td or Tdap) [facility] Start: 03-18-2030 Lipid panel Lipid Panel [facility] Start: 05-24-2026 Diabetes Screening Diabetes Screening [facility] Start: 08-27-2025 Medicare Annual Wellness (AWV) Medicare Annual Wellness (AWV) [facility] Start: 07-23-2025 End: 07-23-2025 Patient encounter procedure 07/23/2025 12:55 PM EST Office Visit [facility] [address] [place] [phone] Amrit Sanchez MD [address] [place], [place] [phone] [facility] Start: 06-15-2025 End: 06-15-2025 Patient encounter procedure 06/15/2025 9:30 AM EDT Office Visit [facility] [address] [place] [phone] Renetta Armas PA [address] [place] [address] [facility] Start: 05-22-2025 End: 05-22-2025 Patient encounter procedure 05/22/2025 8:30 AM EDT Office Visit [facility] [address] [facility] [address] [place] [phone] Huber Henning MD [address] [place] [address] [facility] Start: 04-30-2025 End: 07-30-2025 Prostate specific Ag [Mass/volume] in Serum or Plasma PROSTATE-SPECIFIC ANTIGEN DIAGNOSTIC Lab Routine History of prostate cancer Expected: 04/30/2025 (Approximate), Expires: 07/30/2025 [facility] Work Phone: Comment on above: Expected: 04/30/2025 (Approximate), Expi res: 07/30/2025 Start: 04-29-2025 End: 04-29-2025 Patient encounter procedure 04/29/2025 11:00 AM EDT Office Visit [facility] [address] [place] [address] Karthik Vaz MD [address] [place] [address] Followup Rad[facility] Oncology Comment on above: Followup Start: 04-20-2025 Influenza vaccination Influenza Vaccine (#1) [facility] Start: 04-02-2025 End: 04-02-2027 US Heart Transesophageal Transesophageal Echo (FREDI) Echocardiography Routine Mild aortic stenosis Expected: 04/02/2025 (Approximate), Expires: 04/02/2027 [facility] Service Area Work Phone: Comment on above: Expected: 04/02/2025 (Approximate), Expi res: 04/02/2027 Start: 03-18-2025 End: 03-18-2026 Comprehensive metabolic 2000 panel - Serum or Plasma Comprehensive metabolic panel Lab Routine Polymyalgia rheumatica ([facility]) Benign essential hypertension Pure hypercholesterolemia Expected: 03/18/2025 (Approximate), Expires: 03/18/2026 [facility] Work Phone: Comment on above: Expected: 03/18/2025 (Approximate), Expi res: 03/18/2026 Start: 03-18-2025 End: 03-18-2026 Lipid 1996 panel - Serum or Plasma Lipid panel Lab Routine Polymyalgia rheumatica ([facility]) Benign essential hypertension Pure hypercholesterolemia Expected: 03/18/2025 (Approximate), Expires: 03/18/2026 [facility] Comment on above: Expected: 03/18/2025 (Approximate), Expi res: 03/18/2026 Start: 03-18-2025 End: 03-18-2025 Patient encounter procedure 03/18/2025 8:30 AM EDT Office Visit [facility] [place] [facility] [address] [place] [address] Huber Henning MD [address] [place] [address] Arrived [facility] [place] [facility] Comment on above: Arrived Start: 03-02-2025 End: 03-02-2025 Patient encounter procedure 03/02/2025 8:30 AM EDT Office Visit [facility]HA[facility] [address] [place] [phone] Huber Henning MD [address] [place] [address] [facility] Start: 02-26-2025 Urine screening for protein Diabetes: Urine Protein Screening [facility] Start: 02-24-2025 Medicare Annual Wellness (AWV) Medicare Annual Wellness (AWV) [facility] Start: 11-28-2024 End: 11-28-2026 Echocardiogram 2D complete Echocardiogram 2D complete Echocardiography Routine FLYNN (dyspnea on exertion) Systolic murmur Expected: 11/28/2024 (Approximate), Expires: 11/28/2026 [facility] Work Phone: Comment on above: Expected: 11/28/2024 (Approximate), Expi res: 11/28/2026 Start: 11-28-2024 End: 11-28-2024 Patient encounter procedure [facility] Comment on above: Arrived Start: 10-28-2024 COVID-19 Vaccine () COVID-19 Vaccine () [facility] Start: 08-27-2024 End: 08-27-2024 Patient encounter procedure [facility] Comment on above: Arrived Start: 07-01-2024 End: 07-01-2024 Patient encounter procedure 07/01/2024 9:00 AM EST Office Visit [facility] [address] [facility] [address] [place] [phone] Fantasma Randolph, DO [address] [facility] [address] [place] [address] [facility] Start: 06-22-2024 DIABETES SCREEN DIABETES SCREEN [facility] Start: 06-22-2024 Diabetes Screening Diabetes Screening [facility] Start: 04-30-2024 End: 04-30-2024 Patient encounter procedure 04/30/2024 11:15 AM EDT Office Visit Radiation Oncology [address] [place] [address] Karthik Vaz MD [address] [place] [address] 1 year follow up Radiation Oncology Comment on above: 1 year follow up Start: 04-22-2024 End: 07-22-2024 Prostate specific Ag [Mass/volume] in Serum or Plasma PROSTATE-SPECIFIC ANTIGEN DIAGNOSTIC Lab Routine History of prostate cancer Expected: 04/22/2024, Expires: 07/22/2024 [facility] Work Phone: Comment on above: Expected: 04/22/2024, Expires: 4 Start: 04-20-2024 Covid-19 Vaccine () Covid-19 Vaccine () [facility] Start: 04-20-2024 Covid-19 Vaccine () Covid-19 Vaccine () [facility] Start: 04-20-2024 Influenza vaccination Influenza Vaccine (#1) [facility] Start: 08-24-2023 Hemoglobin A1c measurement Diabetes: Hemoglobin A1C [facility] Start: 08-20-2023 Advance Directive Discussion Advance Directive Discussion [facility] Start: 04-20-2023 Influenza vaccination INFLUENZA (#1) [facility] Start: 04-18-2023 Shingrix Vaccine (2 of 2) Shingrix Vaccine (2 of 2) [facility] Start: 04-18-2023 Zoster Vaccines (2 of 2) Zoster Vaccines (2 of 2) [facility] Start: 04-04-2023 End: 06-04-2023 Prostate specific Ag [Mass/volume] in Serum or Plasma PSA/PROSTSPECAG DIAG Lab Routine History of prostate cancer Expected: 04/04/2023, Expires: 06/04/2023 [facility] Work Phone: Comment on above: Expected: 04/04/2023, Expires: 3 Start: 09-10-2022 COVID-19 VACCINE (5 - Pfizer series) COVID-19 VACCINE (5 - Pfizer series) [facility] Start: 08-20-2022 ADVANCE DIRECTIVE DISCUSSION ADVANCE DIRECTIVE DISCUSSION [facility] Start: 08-20-2022 DEPRESSION ASSESSMENT DEPRESSION ASSESSMENT [facility] Start: 12-28-2021 Glaucoma screening Diabetes: Retinopathy Screening [facility] Start: 10-01-2021 COVID-19 VACCINE (4 - Pfizer series) COVID-19 VACCINE (4 - Pfizer series) [facility] Start: 01-16-2020 Urine screening for protein Diabetes: Urine Protein Screening [facility] Start: 2004 RSV Vaccine (1 - 1-dose 60+ series) RSV Vaccine (1 - 1-dose 60+ series) [facility] Start: 1994 SHINGRIX VACCINE (1 of 2) SHINGRIX VACCINE (1 of 2) [facility] Start: 12-10-1963 Urine microalbumin profile DTAP,TDAP,TD (1 - Tdap) [facility] Start: 1962 Anxiety Screening Anxiety Screening [facility] Start: 1962 Depression Screening Depression Screening [facility] Start: 1962 HEPATITIS C SCREENING HEPATITIS C SCREENING [facility] Start: 1944 Annual wellness visit Welcome to Medicare Visit [facility] CBC W Auto Different ial panel - Blood CBC and differential Lab Routine Polymyalgia rheumatica ([facility]CC) Benign essential hypertension Pure hypercholesterolemia Ordered: 03/18/2025 [facility] Comment on above: Ordered: 03/18/2025 [facility] Immunizations Immunization Date Immunization Notes Care Provider [facility] 05-09-2024 influenza, seasonal, injectable Amrit Sanchez MD Work Phone: [facility] Work Phone: 05-09-2024 influenza virus vaccine, unspecified formulation Amrit Sanchez MD Work Phone: [facility] Work Phone: 04-20-2024 influenza virus vaccine, unspecified formulation Vamsi AYALA [facility] 04-20-2024 influenza, high dose seasonal, preservative-free Huber Henning MD Work Phone: [facility] 04-20-2024 RSV, recombinant, protein subunit RSVpreF, adjuvant reconstitu, 120mcg/0.5mL, PF (Arexvy) Huber Henning MD Work Phone: [facility] 05-24-2023 influenza virus vaccine, unspecified formulation Vamsi AYALA [facility] 05-24-2023 Influenza, High-dose Seasonal, Quadrivalent, Preservative Free Generic Provider [facility] 05-24-2023 SARS-CoV-2, Unspecified Generic Prov [facility] 02-23-2023 Pneumococcal Conjuga te PCV 20 Generic Provider [facility] 02-21-2023 tetanus toxoid, redu josef diphtheria toxoid, and acellular pertussis vaccine, adsorbed Generic Provider [facility] 02-21-2023 zoster vaccine recombinant Generic Provider [facility] 05-11-2022 influenza, high dose seasonal, preservative-free Generic Provider [facility] 05-11-2022 Influenza, High-dose Seasonal, Quadrivalent, Preservative Free Generic Provider [facility] 05-11-2022 SARS-CoV-2 (COVID-19 ) [id number] Vamsi AYALA [facility] 05-11-2022 influenza virus vaccine, unspecified formulation Main Bosch MD Work Phone: [facility] 08-06-2021 SARS-CoV-2 (COVID-19 ) mRNA BNT-162b2 vax Vamsi AYALA [facility] 06-22-2021 influenza virus vaccine, unspecified formulation Vamsi AYALA [facility] 06-22-2021 influenza, high dose seasonal, preservative-free FREDDY Vaz MD Work Phone: [facility] 01-26-2021 SARS-CoV-2 (COVID-19 ) mRNA BNT-162b2 vax Vamsi AYALA [facility] Comment on above: Result Comment: 2023: [id number] 01-05-2021 SARS-CoV-2 (COVID-19 ) mRNA BNT-162b2 vax Vamsi AYALA [facility] Comment on above: Result Comment: 2023: [id number] 06-03-2020 influenza (aIIV4) vaccine, age 65+ yr, quadrivalent, PF (FLUAD QUAD) FREDDY Vaz MD Work Phone: [facility] 06-03-2020 influenza virus vaccine, unspecified formulation Vamsi AYALA [facility] 06-03-2020 Influenza, injectabl e, Madin [place] Canine Kidney, preservative free, quadrivalent Generic Provider [facility] 05-19-2019 influenza virus vaccine, unspecified formulation Vamsi AYALA [facility] 05-19-2019 influenza, high dose seasonal, preservative-free FREDDY Vaz MD Work Phone: [facility] 05-18-2019 Influenza, High-dose Seasonal, Quadrivalent, Preservative Free Generic Provider [facility] 06-06-2018 influenza virus vaccine, unspecified formulation Vamsi AYALA [facility] 06-06-2018 influenza, high dose seasonal, preservative-free FREDDY Vaz MD Work Phone: [facility] 06-06-2018 Influenza, High-dose Seasonal, Quadrivalent, Preservative Free Generic Provider [facility] 04-20-2018 influenza nasal, unspecified formulation FREDDY Vaz MD Work Phone: [facility] 04-20-2018 influenza virus vaccine, unspecified formulation Juanito Gonzales Jr. [facility] 05-10-2017 influenza virus vaccine, unspecified formulation Vamsi AYALA [facility] 05-10-2017 influenza, high dose seasonal, preservative-free FREDDY Vaz MD Work Phone: [facility] 05-10-2017 Influenza, High-dose Seasonal, Quadrivalent, Preservative Free Generic Provider [facility] 01-04-2017 pneumococcal conjuga te vaccine, 13 valent FREDDY Vaz MD Work Phone: [facility] 07-03-2016 influenza, injectabl e, quadrivalent, preservative free FREDDY Vaz MD Work Phone: [facility] 04-16-2015 influenza, seasonal, injectable FREDDY Vaz MD Work Phone: [facility] 07-28-2014 pneumococcal polysaccharide vaccine, 23 valent FREDDY Vaz MD Work Phone: [facility] 06-22-2014 influenza, seasonal, injectable, preservative free FREDDY Vaz MD Work Phone: [facility] 06-22-2014 seasonal influenza, intradermal, preservative free Generic Provider [facility] Payers Date Payer Category Payer Self-pay 2024 Unknown [id number] 2024 Medicare (Managed Care) [id number] 2024 Medicare [id number] 2018 Medicare [id number] 2017 Unknown [id number] 2009 Medicare [id number] 1959 Medicare [id number] 1959 Unknown [id number] 1959 Unknown [id number] 1944 Unknown [id number] 1944 Unknown [id number] 1944 Unknown [id number] 1944 Unknown [id number] 1944 Unknown [id number] 1944 Unknown [id number] 1944 Unknown [id number] 1944 Unknown [id number] [id number] 1944 Unknown [id number] [id number] 1944 Unknown [id number] [id number] 1944 Unknown [id number] 1944 Unknown [id number] 1944 Unknown [id number] Unknown [facility] Health Claims [id number] Unknown [id number] Unknown [id number] Social History Date Type Detail Facility Start: 12-27-2021 End: 02-19-2023 Tobacco smoking status Never smoked tobacco (finding) [facility] Start: 07-14-2022 Tobacco smoking status Never [facility] Start: 03-10-2022 End: 03-18-2025 Sex Assigned At Male [facility] Start: 01-22-2018 End: 02-19-2023 Tobacco use and exposure Smokeless tobacco non-user [facility] Start: 03-10-2022 End: 04-11-2023 Alcohol intake Current non-drinker of alcohol (finding) [facility] Start: 03-10-2022 End: 03-18-2025 History of Social function [facility] Start: 1945 Sex Assigned At Not on file C [facility] Start: 02-25-2024 End: 03-18-2025 Alcoholic beverage intake Lifetime non-drinker (finding) [facility] if ever smoked [facility] Work Phone: Start: 01-10-2025 Sex Male (finding) [facility] Start: 1945 Sex Assigned At Male [facility] Functional Status Date Assessment Result Facility 03-18-2025 Patient Health Quest ionnaire 2 item (PHQ-2) [Reported] [facility] 07-28-2024 Functional Status N/A [facility] 03-26-2023 Functional Status N/A [facility] Clinical Notes 12-27-2021 to 04-02-2025 Amrit Sanchez MD - 04/02/2025 2:10 PM EDTPatient InstructionsAttachmentsHuber Henning MD - 03/18/2025 8:30 AM EDTHuber Henning MD - 11/28/2024 8:30 AM EDT Note Date & Type Note Facility 04-02-2025 History of Present illness Narrative Cardiology Consultation- New Consult Reason for referral: Abnormal echocardiogram with mitral regurgitation Chief Complaint Patient presents with [facility] Care New-Referral from for HTN HPI: Blake Gutierrez is a 79 y.o. male with a history of hypertension, hyperlipidemia and recently observed cardiac murmur referred due to abnormal echo. 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 Patient admit to very limited exercise tolerance secondary lifestyle. He denies chest pain, lightheadedness, dizziness or syncope. He denies any history of rheumatic fever, heart failure or coronary artery disease. The patient described functional class II and very sedentary lifestyle Assessment 1. 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 Essential hypertension controlled with treatment with amlodipine 3. Mixed hyperlipidemia on simvastatin 4. BMI 31 5. Polymyalgia rheumatica 6. Mild aortic stenosis Plan 1. I reviewed the results of his echocardiogram with him at great length. I suggest to proceed with transesophageal echocardiogram for better assessment of his mitral valve and the need for mitral valve repair/replacement 2. I advised him to continue present medical regiment 3. Advised him to exercise and lose weight 4. Follow-up after testing done Past Medical History: Hypertension on treatment, hyperlipidemia treatment and history of polymyalgia rheumatica Surgical History: He has a past surgical history that includes Prostate surgery; Shoulder surgery (Left); and Cataract extraction (Bilateral). Family History: Family History[1] Social History: Social History Tobacco Use Smoking status: Never Smokeless tobacco: Never Substance Use Topics Alcohol use: Never Allergies: Patient has no known allergies. Current Medications: Current Outpatient Medications Medication Instructions amLODIPine (NORVASC) 2.5 mg, Daily aspirin 81 mg, Daily RT calcium carbonate-vitamin D3 600 mg-5 mcg (200 unit) tablet 1 tablet, Daily glucosamine sulfate 500 mg tablet 1 tablet, Daily meloxicam (MOBIC) 15 mg, Daily omega 7-oaa-ido-fish oil (Fish OiL) 1,200 (144-216) mg capsule 1 capsule, Daily omeprazole (PriLOSEC) [address] capsule 1 capsule, Daily before breakfast predniSONE (DELTASONE) 5 mg, oral, Daily simvastatin (ZOCOR) 40 mg, Every evening Vitals: Vitals: 04/02/25 1343 04/02/25 1346 BP: 130/86 128/72 BP Location: Left arm Right arm Patient Position: Sitting Sitting Pulse: 78 Weight: 97.1 kg (214 lb) Height: 1.753 m (5' 9 ) EKG done in office today Review of Systems All other systems reviewed and are negative. Objective Physical Exam Constitutional: Appearance: Normal appearance. HENT: Nose: Nose normal. Neck: Vascular: No carotid bruit. Cardiovascular: Rate and Rhythm: Normal rate. Pulses: Normal pulses. Heart sounds: Murmur heard. Systolic murmur is present with a grade of 3/6. Pulmonary: Effort: Pulmonary effort is normal. Abdominal: General: Bowel sounds are normal. Palpations: Abdomen is soft. Musculoskeletal: General: Normal range of motion. Cervical back: Normal range of motion. Right lower leg: No edema. Left lower leg: No edema. Skin: General: Skin is warm and dry. Neurological: General: No focal deficit present. Mental Status: He is alert. Psychiatric: Mood and Affect: Mood normal. Behavior: Behavior normal. Thought Content: Thought content normal. Judgment: Judgment normal. Assessment and Plan: 1. Nonrheumatic mitral valve regurgitation 2. Mild aortic stenosis ECG 12 Lead Follow Up In Cardiology Transesophageal Echo (FREDI) 3. Essential hypertension 4. Mixed hyperlipidemia 5. BMI 31.0-31.9,adult 6. Never smoked tobacco Scribe Attestation By signing my name below, Nuvia Sandoval LPN, Scribe attest that this documentation has been prepared under the direction and in the presence of Amrit Sanchez MD. Provider Attestation - Scribe documentation All medical record entries made by the Scribe were at my direction and personally dictated by me. I have reviewed the chart and agree that the record accurately reflects my personal performance of the history, physical exam, discussion and plan. [1] Family History Problem Relation Name Age of Onset Cirrhosis Mother Lung cancer Father Cancer Brother documented in this encounter [facility] Work Phone: 04-02-2025 Instructions Nuvia Valdes LPN - 04/02/2025 2:10 PM EDT Please bring all medicines, vitamins, and herbal supplements with you when you come to the office. Prescriptions will not be filled unless you are compliant with your follow up appointments or have a follow up appointment scheduled as per instruction of your physician. Refills should be requested at the time of your visit. BMI was above normal measurement. Current weight: 97.1 kg (214 lb) Weight change since last visit (-) denotes wt loss 214 lbs Weight loss needed to achieve BMI 25: 45.1 Lbs Weight loss needed to achieve BMI 30: 11.3 Lbs Provided instructions on dietary changes Provided instructions on exercise. Fall Prevention Education Given. FREDI Follow up afterwards The following attachments cannot be sent through Care Everywhere.Preventing Falls ED (Armenian)documented in this encounter [facility] Work Phone: 03-18-2025 History of Present illness Narrative Images from the original note were not included. HPI Results Additional comments: echo Last edited by Sahra Chery LPN on 03/18/2025 8:43 AM. Subjective Patient ID: Blake Gutierrez is a 79 y.o. male who presents for Hypertension, Results (echo), and Diabetic Eye Exam. Hypertension Patient is here for follow-up of elevated blood pressure.Blood pressure is well controlled at home. Cardiac symptoms: none. Patient denies chest pain, claudication, dyspnea, lower extremity edema, near-syncope, orthopnea, palpitations, and paroxysmal nocturnal dyspnea. Cardiovascular risk factors: advanced age (older than 55 for men, 65 for women), diabetes mellitus, hypertension, and male gender. Hypertension Pertinent negatives include no palpitations or shortness of breath. Over the past 2 weeks, how often have you been bothered by any of the following problems? Little interest or pleasure in doing things: Not at all Feeling down, depressed, or hopeless: Not at all Patient Health Questionnaire-2 Score: 0 Current Outpatient Medications on File Prior to Visit Medication Sig Dispense Refill amLODIPine (Norvasc) 2.5 MG tablet TAKE 1 TABLET BY MOUTH EVERY DAY 90 tablet 3 aspirin 81 MG EC tablet Take 81 mg by mouth in the morning. Calcium Carbonate-Vit D-Min (GNP Calcium Plus 600 +D) 600-200 MG-UNIT tablet every 12 (twelve) hours. clotrimazole-betamethasone (Lotrisone) cream Apply 1 application topically in the morning. Glucosamine Sulfate 500 MG tablet 1 (one) time each day at the same time. lisinopril 20 MG tablet Take 1 tablet (20 mg) by mouth in the morning. 90 tablet 3 meloxicam (Mobic) 15 MG tablet TAKE 1 TABLET BY MOUTH EVERY DAY WITH FOOD 30 tablet 13 Multiple Vitamin (multivitamin) capsule Daily. omeprazole (PriLOSEC) [address] capsule Take 1 capsule by mouth in the morning. Take before meals. predniSONE (Deltasone) 10 MG tablet TAKE 1 TABLET BY MOUTH EVERY DAY 30 tablet 4 simvastatin (Zocor) 40 MG tablet TAKE 1 TABLET BY MOUTH EVERY DAY IN THE EVENING 90 tablet 3 tiZANidine (Zanaflex) 4 MG tablet Take 1 tablet (4 mg) by mouth every 8 (eight) hours if needed for muscle spasms for up to 20 days 30 tablet 1 No current facility-administered medications on file prior to visit. I have reviewed and reconciled the history and medication list with the patient today. No Known Allergies Social History Tobacco Use Smoking status: Never Smokeless tobacco: Never Substance Use Topics Alcohol use: Never Family History Problem Relation Name Age of Onset Lung disease Father Past Medical History: Diagnosis Date Allergic Diabetes mellitus (HCC) Hypertension Mandible fracture (CMS-HCC) PMR (polymyalgia rheumatica) ([facility]-HCC) Prostate cancer (HCC) Shingles Past Surgical History: Procedure Laterality Date COLONOSCOPY MANDIBLE FRACTURE SURGERY PROSTATE BIOPSY 2018 REVERSE TOTAL SHOULDER ARTHROPLASTY Left 2016 SEPTOPLASTY 2013 IT [facility] Visit Vitals BP 132/80 Pulse 73 Ht 5' 9 Wt 211 lb SpO2 94% BMI 31.16 kg/m Smoking Status Never BSA 2.16 m Review of Systems Respiratory: Negative for shortness of breath. Cardiovascular: Negative for palpitations. Objective Physical Exam Constitutional: General: He is not in acute distress. Appearance: He is normal weight. He is not ill-appearing. HENT: Head: Normocephalic. Comments: Scaling erythematous plaque left advent region as noted Cardiovascular: Rate and Rhythm: Normal rate and regular rhythm. Heart sounds: Murmur heard. Systolic murmur is present with a grade of 3/6. Pulmonary: Effort: Pulmonary effort is normal. Breath sounds: Normal breath sounds. Musculoskeletal: General: No swelling. Right lower leg: No edema. Left lower leg: No edema. Neurological: Mental Status: He is alert. Gait: Gait abnormal. Psychiatric: Mood and Affect: Mood normal. Thought Content: Thought content normal. Judgment: Judgment normal. Assessment/Plan Diagnoses and all orders for this visit: Nonrheumatic mitral valve regurgitation - Ambulatory referral to Cardiology; Future Polymyalgia rheumatica ([facility]HS-HCC) - Comprehensive metabolic panel; Future - CBC and differential - Lipid panel; Future Benign essential hypertension - Comprehensive metabolic panel; Future - CBC and differential - Lipid panel; Future Pure hypercholesterolemia - Comprehensive metabolic panel; Future - CBC and differential - Lipid panel; Future Neoplasm of uncertain behavior of skin of face - Ambulatory referral to Dermatology; Future Follow up in about 2 months (around 05/19/2025) for Routine F/U, Test/Lab Review. documented in this encounter [facility] 11-28-2024 History of Present illness Narrative Images from the original note were not included. Subjective Patient ID: Blake Gutirerez is a 78 y.o. male who presents for Hypertension. Hypertension Patient is here for follow-up of elevated blood pressure.Blood pressure is well controlled at home. Cardiac symptoms: none. Patient denies chest pain, claudication, dyspnea, lower extremity edema, near-syncope, orthopnea, palpitations, and paroxysmal nocturnal dyspnea. Cardiovascular risk factors: advanced age (older than 55 for men, 65 for women), diabetes mellitus, hypertension, and male gender. Hypertension Pertinent negatives include no palpitations or shortness of breath. Current Outpatient Medications on File Prior to Visit Medication Sig Dispense Refill amLODIPine (Norvasc) 2.5 MG tablet TAKE 1 TABLET BY MOUTH EVERY DAY 90 tablet 3 aspirin 81 MG EC tablet Take 81 mg by mouth in the morning. Calcium Carbonate-Vit D-Min (GNP Calcium Plus 600 +D) 600-200 MG-UNIT tablet every 12 (twelve) hours. clotrimazole-betamethasone (Lotrisone) cream Apply 1 application topically in the morning. Glucosamine Sulfate 500 MG tablet 1 (one) time each day at the same time. meloxicam (Mobic) 15 MG tablet TAKE 1 TABLET BY MOUTH DAILY WITH FOOD 30 tablet 13 Multiple Vitamin (multivitamin) capsule Daily. omeprazole (PriLOSEC) [address] capsule Take 1 capsule by mouth in the morning. Take before meals. predniSONE (Deltasone) 10 MG tablet TAKE 1 TABLET BY MOUTH EVERY DAY 30 tablet 4 simvastatin (Zocor) 40 MG tablet TAKE 1 TABLET BY MOUTH EVERY DAY IN THE EVENING 90 tablet 3 lisinopril 20 MG tablet Take 1 tablet (20 mg) by mouth in the morning. 90 tablet 3 No current facility-administered medications on file prior to visit. I have reviewed and reconciled the history and medication list with the patient today. No Known Allergies Social History Tobacco Use Smoking status: Never Smokeless tobacco: Never Substance Use Topics Alcohol use: Never Family History Problem Relation Name Age of Onset Lung disease Father Past Medical History: Diagnosis Date Allergic Diabetes mellitus (CMS/HCC) Hypertension (CMS/HCC) Mandible fracture (CMS/HCC) PMR (polymyalgia rheumatica) (CMS/HCC) Prostate cancer (CMS/HCC) Shingles Past Surgical History: Procedure Laterality Date COLONOSCOPY MANDIBLE FRACTURE SURGERY PROSTATE BIOPSY 2018 REVERSE TOTAL SHOULDER ARTHROPLASTY Left 2016 SEPTOPLASTY 2013 IT [facility] Visit Vitals BP 136/74 Pulse 86 Ht 5' 9 Wt 202 lb SpO2 95% BMI 29.83 kg/m Smoking Status Never BSA 2.11 m Review of Systems Respiratory: Negative for shortness of breath. Cardiovascular: Negative for palpitations. Objective Physical Exam Constitutional: General: He is not in acute distress. Appearance: He is normal weight. He is not ill-appearing. HENT: Head: Normocephalic. Cardiovascular: Rate and Rhythm: Normal rate and regular rhythm. Heart sounds: Murmur heard. Systolic murmur is present with a grade of 2/6. Pulmonary: Effort: Pulmonary effort is normal. Breath sounds: Normal breath sounds. Musculoskeletal: General: No swelling. Right lower leg: No edema. Left lower leg: No edema. Neurological: Mental Status: He is alert. Gait: Gait abnormal. Psychiatric: Mood and Affect: Mood normal. Thought Content: Thought content normal. Judgment: Judgment normal. Assessment/Plan Diagnoses and all orders for this visit: Benign essential hypertension (CMS/HCC) Polymyalgia rheumatica (CMS/HCC) Adenocarcinoma of prostate (CMS/HCC) Glenohumeral arthritis, right - Advanced by Xray 3 years ago. If he wants treatment, joint replacement would be needed. I offered Ortho referral, he wants to wait. FLYNN (dyspnea on exertion) - Echocardiogram 2D complete; Future Systolic murmur - Echocardiogram 2D complete; Future Trapezius muscle spasm - tiZANidine (Zanaflex) 4 MG tablet; Take 1 tablet (4 mg) by mouth every 8 (eight) hours if needed for muscle spasms for up to 20 days Follow up in about 3 months (around 02/27/2025) for Routine F/U, Perform Labwork. documented in this encounter [facility] 08-27-2024 History of Present illness Narrative Images from the original note were not included. Subjective : Chief Complaint: Blake Gutierrez is an 78 y.o. male here for an annual wellness visit. I have reviewed and reconciled the history and medication list with the patient today. Current Outpatient Medications Medication Sig Dispense Refill amLODIPine (Norvasc) 2.5 MG tablet TAKE 1 TABLET BY MOUTH EVERY DAY 90 tablet 3 aspirin 81 MG EC tablet Take 81 mg by mouth in the morning. Calcium Carbonate-Vit D-Min (GNP Calcium Plus 600 +D) 600-200 MG-UNIT tablet every 12 (twelve) hours. clotrimazole-betamethasone (Lotrisone) cream Apply 1 application topically in the morning. Glucosamine Sulfate 500 MG tablet 1 (one) time each day at the same time. meloxicam (Mobic) 15 MG tablet TAKE 1 TABLET BY MOUTH DAILY WITH FOOD 30 tablet 13 Multiple Vitamin (multivitamin) capsule Daily. omeprazole (PriLOSEC) [address] capsule Take 1 capsule by mouth in the morning. Take before meals. predniSONE (Deltasone) 10 MG tablet TAKE 1 TABLET BY MOUTH EVERY DAY 30 tablet 4 simvastatin (Zocor) 40 MG tablet TAKE 1 TABLET BY MOUTH EVERY DAY IN THE EVENING 90 tablet 3 lisinopril 20 MG tablet Take 1 tablet (20 mg) by mouth in the morning. 90 tablet 3 No current facility-administered medications for this visit. Review of Systems List of current healthcare providers: Patient Care Team: Huber Henning MD as PCP - General (Internal Medicine) Hubre Henning MD as PCP - [facility] Huber Henning MD as PCP - Sravani MA Medicare Annual Visit Over the past 2 weeks, how often have you been bothered by any of the following problems? Little interest or pleasure in doing things: Not at all Feeling down, depressed, or hopeless: Not at all Patient Health Questionnaire-2 Score: 0 [place] Fall Risk History of Falling, Immediate or Within 3 Months: No Secondary Diagnosis: No Ambulatory Aid: Crutches/cane/walker Health Risk Assessment Form Do you need help eating, bathing, using the toilet, dressing, or getting around your home?: No Can you prepare your own meals?: Yes Can you do your own housework without help?: Yes Can you shop for groceries or clothes without help?: Yes Do you exercise for about 20 minutes 3 or more days a week?: Yes How confident are you that you can control and manage most of your health problems?: Very confident Can you mange your money, credit cards and accounts, pay bills and taxes?: Yes Cognitive Screening Three Word Registration: Apple, Watch, Sushma Clock Drawing: Normal Clock - 2 Three Word Recall: All 3 words correct - 3 Total Score (0-5 Points): 5 Pain Assessment Pain Score: 8 Advance Care Planning Do you have a living will?: No Do you have a medical power of attorney general?: No Objective : BP 132/78 Pulse 86 Ht 5' 9 Wt 200 lb SpO2 99% BMI 29.53 kg/m No results found. Physical Exam Constitutional: General: He is not in acute distress. Appearance: He is normal weight. He is not ill-appearing. HENT: Head: Normocephalic. Cardiovascular: Rate and Rhythm: Normal rate and regular rhythm. Heart sounds: Normal heart sounds. No murmur heard. Pulmonary: Effort: Pulmonary effort is normal. Breath sounds: Normal breath sounds. Musculoskeletal: General: No swelling. Right lower leg: No edema. Left lower leg: No edema. Neurological: Mental Status: He is alert. Gait: Gait abnormal. Psychiatric: Mood and Affect: Mood normal. Thought Content: Thought content normal. Judgment: Judgment normal. 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 No orders of the defined types were placed in this encounter. Electronically signed by Huber Henning MD on August 28, 2024 documented in this encounter [facility] 07-28-2024 Hospital Discharge instructions Patient Education 07/28/2024 11:52:25 Prostate Cancer Screening Prostate Cancer Screening Prostate cancer screening is testing that is done to check for the presence of prostate cancer in men. The prostate gland is a walnut-sized gland that is located below the bladder and in front of the rectum in males. The function of the prostate is to add fluid to semen during ejaculation. Prostate cancer is one of the most common types of cancer in men. Who should have prostate cancer screening? Screening recommendations vary based on age and other risk factors, as well as between the professional organizations who make the recommendations. In general, screening is recommended if: You are age 50 to 70 and have an average risk for prostate cancer. You should talk with your health care provider about your need for screening and how often screening should be done. Because most prostate cancers are slow growing and will not cause , screening in this age group is generally reserved for men who have a 10- to 15-year life expectancy. You are younger than age 50, and you have these risk factors: ?Having a father, brother, or uncle who has been diagnosed with prostate cancer. The risk is higher if your family member's cancer occurred at an early age or if you have multiple family members with prostate cancer at an early age. ?Being a male who is Black or is of [place] or sub-Saharan descent. In general, screening is not recommended if: You are younger than age 40. You are between the ages of 40 and 49 and you have no risk factors. You are 70 years of age or older. At this age, the risks that screening can cause are greater than the benefits that it may provide. If you are at high risk for prostate cancer, your health care provider may recommend that you have screenings more often or that you start screening at a younger age. How is screening for prostate cancer done? The recommended prostate cancer screening test is a blood test called the prostate-specific antigen (PSA) test. PSA is a protein that is made in the prostate. As you age, your prostate naturally produces more PSA. Abnormally high PSA levels may be caused by: Prostate cancer. An enlarged prostate that is not caused by cancer (benign prostatic hyperplasia, or BPH). This condition is very common in older men. A prostate gland infection (prostatitis) or urinary tract infection. Certain medicines such as male hormones (like testosterone) or other medicines that raise testosterone levels. A rectal exam may be done as part of prostate cancer screening to help provide information about the size of your prostate gland. When a rectal exam is performed, it should be done after the PSA level is drawn to avoid any effect on the results. Depending on the PSA results, you may need more tests, such as: A physical exam to check the size of your prostate gland, if not done as part of screening. Blood and imaging tests. A procedure to remove tissue samples from your prostate gland for testing (biopsy). This is the only way to know for certain if you have prostate cancer. What are the benefits of prostate cancer screening? Screening can help to identify cancer at an early stage, before symptoms start and when the cancer can be treated more easily. There is a small chance that screening may lower your risk of dying from prostate cancer. The chance is small because prostate cancer is a slow-growing cancer, and most men with prostate cancer from a different cause. What are the risks of prostate cancer screening? The main risk of prostate cancer screening is diagnosing and treating prostate cancer that would never have caused any symptoms or problems. This is called overdiagnosisand overtreatment. PSA screening cannot tell you if your PSA is high due to cancer or a different cause. A prostate biopsy is the only procedure to diagnose prostate cancer. Even the results of a biopsy may not tell you if your cancer needs to be treated. Slow-growing prostate cancer may not need any treatment other than monitoring, so diagnosing and treating it may cause unnecessary stress or other side effects. Questions to ask your health care provider When should I start prostate cancer screening? What is my risk for prostate cancer? How often do I need screening? What type of screening tests do I need? How do I get my test results? What do my results mean? Do I need treatment? Where to find more information The [place] [employer]: www.cancer.org [place] [employer]: www.auanet.org Contact a health care provider if: You have difficulty urinating. You have pain when you urinate or ejaculate. You have blood in your urine or semen. You have pain in your back or in the area of your prostate. Summary Prostate cancer is a common type of cancer in men. The prostate gland is located below the bladder and in front of the rectum. This gland adds fluid to semen during ejaculation. Prostate cancer screening may identify cancer at an early stage, when the cancer can be treated more easily and is less likely to have spread to other areas of the body. The prostate-specific antigen (PSA) test is the recommended screening test for prostate cancer, but it has associated risks. Discuss the risks and benefits of prostate cancer screening with your health care provider. If you are age 70 or older, the risks that screening can cause are greater than the benefits that it may provide. This information is not intended to replace advice given to you by your health care provider. Make sure you discuss any questions you have with your health care provider. Document Revised: 01/30/2022 Document Reviewed: 01/30/2022 [employer] Patient Education 2023 [employer]. Follow Up Care 06/06/2024 13:14:46 With:MANI LERMA, Vamsi Allen, URL Address: [facility] [address], [place] [phone]- [phone] When: Unknown Comments:1 yr w/ PSA [facility] [place] 07-28-2024 Note Patient Education Oncology Prostate Cancer Screening Prostate cancer screening is testing that is done to check for the presence of prostate cancer in men. The prostate gland is a walnut-sized gland that is located below the bladder and in front of the rectum in males. The function of the prostate is to add fluid to semen during ejaculation. Prostate cancer is one of the most common types of cancer in men. Who should have prostate cancer screening? Screening recommendations vary based on age and other risk factors, as well as between the professional organizations who make the recommendations. In general, screening is recommended if: ??? You are age 50 to 70 and have an average risk for prostate cancer. You should talk with your health care provider about your need for screening and how often screening should be done. Because most prostate cancers are slow growing and will not cause , screening in this age group is generally reserved for men who have a 10- to 15-year life expectancy. ??? You are younger than age 50, and you have these risk factors: ? Having a father, brother, or uncle who has been diagnosed with prostate cancer. The risk is higher if your family member's cancer occurred at an early age or if you have multiple family members with prostate cancer at an early age. ? Being a male who is Black or is of [place] or sub-Saharan descent. In general, screening is not recommended if: ??? You are younger than age 40. ??? You are between the ages of 40 and 49 and you have no risk factors. ??? You are 70 years of age or older. At this age, the risks that screening can cause are greater than the benefits that it may provide. If you are at high risk for prostate cancer, your health care provider may recommend that you have screenings more often or that you start screening at a younger age. How is screening for prostate cancer done? The recommended prostate cancer screening test is a blood test called the prostate-specific antigen (PSA) test. PSA is a protein that is made in the prostate. As you age, your prostate naturally produces more PSA. Abnormally high PSA levels may be caused by: ??? Prostate cancer. ??? An enlarged prostate that is not caused by cancer (benign prostatic hyperplasia, or BPH). This condition is very common in older men. ??? A prostate gland infection (prostatitis) or urinary tract infection. ??? Certain medicines such as male hormones (like testosterone) or other medicines that raise testosterone levels. A rectal exam may be done as part of prostate cancer screening to help provide information about the size of your prostate gland. When a rectal exam is performed, it should be done after the PSA level is drawn to avoid any effect on the results. Depending on the PSA results, you may need more tests, such as: ??? A physical exam to check the size of your prostate gland, if not done as part of screening. ??? Blood and imaging tests. ??? A procedure to remove tissue samples from your prostate gland for testing (biopsy). This is the only way to know for certain if you have prostate cancer. What are the benefits of prostate cancer screening? Screening can help to identify cancer at an early stage, before symptoms start and when the cancer can be treated more easily. ??? There is a small chance that screening may lower your risk of dying from prostate cancer. The chance is small because prostate cancer is a slow-growing cancer, and most men with prostate cancer from a different cause. What are the risks of prostate cancer screening? The main risk of prostate cancer screening is diagnosing and treating prostate cancer that would never have caused any symptoms or problems. This is called overdiagnosisand overtreatment. PSA screening cannot tell you if your PSA is high due to cancer or a different cause. A prostate biopsy is the only procedure to diagnose prostate cancer. Even the results of a biopsy may not tell you if your cancer needs to be treated. Slow-growing prostate cancer may not need any treatment other than monitoring, so diagnosing and treating it may cause unnecessary stress or other side effects. Questions to ask your health care provider ??? When should I start prostate cancer screening? What is my risk for prostate cancer? How often do I need screening? What type of screening tests do I need? How do I get my test results? What do my results mean? Do I need treatment? Where to find more information ??? The [place] [employer]: www.cancer.org ??? [place] [employer]: www.auanet.org Contact a health care provider if: ??? You have difficulty urinating. ??? You have pain when you urinate or ejaculate. ??? You have blood in your urine or semen. ??? You have pain in your back or in the area of your prostate. Summary ??? Prostate cancer is a common type of cancer in men. The prostate gland (more content not included)... [facility] 07-01-2024 Telephone encounter Note error [facility] 07-01-2024 Miscellaneous Notes error documented in this encounter [facility] 07-01-2024 History of Present illness Narrative Images from the original note were not included. HISTORY OF PRESENT ILLNESS: Blake Gutierrez is an 78 y.o. @ male. Follow up LT TSA Left shoulder: ~ 7 years s/p LT reverse TSA (DOS 07/24/16). Doing well. He denies any issues or concerns. He continues working 6 days per week. He is pleased with the outcome of surgery. MEDICATION: Current Outpatient Medications on File Prior to Visit Medication Sig Dispense Refill predniSONE (Deltasone) 10 MG tablet TAKE 1 TABLET BY MOUTH EVERY DAY 30 tablet 4 amLODIPine (Norvasc) 2.5 MG tablet TAKE 1 TABLET BY MOUTH EVERY DAY 90 tablet 3 aspirin 81 MG EC tablet Take 81 mg by mouth in the morning. Calcium Carbonate-Vit D-Min (GNP Calcium Plus 600 +D) 600-200 MG-UNIT tablet every 12 (twelve) hours. clotrimazole-betamethasone (Lotrisone) cream Apply 1 application topically in the morning. Glucosamine Sulfate 500 MG tablet 1 (one) time each day at the same time. lisinopril 20 MG tablet Take 1 tablet (20 mg) by mouth in the morning. 90 tablet 3 meloxicam (Mobic) 15 MG tablet TAKE 1 TABLET BY MOUTH DAILY WITH FOOD 30 tablet 13 Multiple Vitamin (multivitamin) capsule Daily. omeprazole (PriLOSEC) [address] capsule Take 1 capsule by mouth in the morning. Take before meals. simvastatin (Zocor) 40 MG tablet TAKE 1 TABLET BY MOUTH EVERY DAY IN THE EVENING 90 tablet 3 No current facility-administered medications on file prior to visit. MEDICAL HISTORY: Past Medical History: Diagnosis Date Allergic Diabetes mellitus (CMS/HCC) Hypertension (CMS/HCC) Mandible fracture (CMS/HCC) PMR (polymyalgia rheumatica) (CMS/HCC) Prostate cancer (CMS/HCC) Shingles ALLERGIES: No Known Allergies VITALS: Visit Vitals Smoking Status Never PHYSICAL EXAM: Ortho Exam LEFT SHOULDER ROM 120 degrees of flexion 120 degrees of abduction. Internal rotation to the buttocks. 5/5 abduction. Painless active range of motion. IMAGING: XR shoulder 2+ views left Imaging Result: July 01, 2024 x-rays AP and lateral of the left shoulder demonstrate reverse total shoulder replacement in good position alignment without signs of loosening fracture or failure. Impression: Stable appearance of left shoulder replacement Glen Randolph D.O. ASSESSMENT: ICD-10-CM 1. Arthritis of left shoulder region M19.012 XR shoulder 2+ views left 2. 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 Candido Randolph D.O. documented in this encounter [facility] 04-30-2024 History of Present illness Narrative Radiation Oncology - Follow Up Note PATIENT NAME: Blake Gutierrez PATIENT DIAGNOSIS: Prostate adenocarcinoma, initial PSA 5.02, biopsy [place] score 3 + 3 = 6 (grade group 1), clinical stage T2a, N0, M0, stage I [cT1a-c/T2a, N0, M0, PSA <10, GG 1] (AJCC 8th ed.), s/p TRUS Random biopsy. Prostate cancer (C61), 2018 NCCN Risk Group: Low Risk Group RADIATION SUMMARY: Prostate brachytherapy, I-125, 145 Gy, 23.668 mCi, 61 sources on 03/20/18. INTERVAL HISTORY: Doing well. Denies any new problems or concerns. PSA HISTORY: PSA (ng/mL) Date Value 04/30/2019 0.58 PSA. (no units) Date Value 04/22/2024 <0.13 02/14/2023 0.05 02/07/2021 0.110 02/07/2021 0.110 PSA 04/25/18: 4.8 ng/mL ALLERGIES No Known Allergies furosemide (LASIX) 20 mg tablet Take 20 mg by mouth twice daily. Omeprazole 40 mg capsule Take 40 mg by mouth once daily. lisinopril (ZESTRIL, PRINIVIL) 40 mg tablet Take 40 mg by mouth once daily. simvastatin (ZOCOR) 40 mg tablet Take 40 mg by mouth daily at bedtime. meloxicam (MOBIC) 15 mg tablet Take 15 mg by mouth once daily. amLODIPine (NORVASC) 2.5 mg tablet Take 2.5 mg by mouth once daily. predniSONE (DELTASONE) 10 mg tablet Take 5 mg by mouth once daily. aspirin, enteric coated (ASPIRIN, ENTERIC COATED) 81 mg EC tablet Take 81 mg by mouth once daily. calcium carbonate/vitamin D3 (CALCIUM 600 + D,3, ORAL) Take by mouth. gluc solomon/chondro solomon A/vit C/Mn (GLUCOSAMINE 1500 COMPLEX ORAL) Take by mouth. REVIEW OF SYSTEMS: D/N = 4-6/2-3 Hematuria: none Dysuria: Yes Incontinence: No Urgency: mild Catheter use: No Medications to aid urination: no - Total AUA Score: 8 Bowel movement frequency: occ diarrhea Blood per rectum: none PHYSICAL EXAM: BP 162/89 Pulse 77 Temp 36.3 C (97.4 F) Resp 18 Wt 88.3 kg (194 lb 9.6 oz) SpO2 99% BMI 28.11 kg/m KPS: 100 General appearance: Alert and oriented. No acute distress. Rectal exam def Extremities: No deformities, edema, skin discoloration, clubbing or cyanosis. Lymph Nodes: No cervical lymphadenopathy, No supraclavicular lymphadenopathy, No axillary lymphadenopathy. Skin: Skin color, texture, turgor normal, no suspicious rashes or lesions. ASSESSMENT/PLAN: Prostate adenocarcinoma, initial PSA 5.02, biopsy [place]ime[place] score 3 + 3 = 6 (grade group 1), clinical stage T2a, N0, M0, stage I [cT1a-c/T2a, N0, M0, PSA <10, GG 1] (AJCC 8th ed.), s/p TRUS Random biopsy. Prostate cancer (C61), 2018 NCCN Risk Group: Low Risk Group, status post brachytherapy seed implant 03/20/18 Patient continues to do very well, now with undetectable PSA. 5 years out with treatment. No postradiation related problems. Overall risk for issues at this point well. After discussion we will plan to see patient back in 1 year with repeat PSA. Signed by: Karthik Vaz MD cc: Huber Henning II, MD documented in this encounter [facility] 04-30-2024 Note HNO ID: [id number] Author: Karthik VAZ MD Service: ? Author Type: Physician Type: Progress Notes Filed: 05/08/2024 12:46 Note Text: Radiation Oncology - Follow Up Note PATIENT NAME: Blake Gutierrez PATIENT DIAGNOSIS: Prostate adenocarcinoma, initial PSA 5.02, biopsy [place]ime[place] score 3 + 3 = 6 (grade group 1), clinical stage T2a, N0, M0, stage I [cT1a-c/T2a, N0, M0, PSA <10, GG 1] (AJCC 8th ed.), s/p TRUS Random biopsy. Prostate cancer (C61), 2018 NCCN Risk Group: Low Risk Group RADIATION SUMMARY: Prostate brachytherapy, I-125, 145 Gy, 23.668 mCi, 61 sources on 03/20/18. INTERVAL HISTORY: Doing well. Denies any new problems or concerns. PSA HISTORY: PSA (ng/mL) Date Value 04/30/2019 0.58 PSA. (no units) Date Value 04/22/2024 <0.13 02/14/2023 0.05 02/07/2021 0.110 02/07/2021 0.110 PSA 04/25/18: 4.8 ng/mL ALLERGIES No Known Allergies furosemide (LASIX) 20 mg tablet Take 20 mg by mouth twice daily. Omeprazole 40 mg capsule Take 40 mg by mouth once daily. lisinopril (ZESTRIL, PRINIVIL) 40 mg tablet Take 40 mg by mouth once daily. simvastatin (ZOCOR) 40 mg tablet Take 40 mg by mouth daily at bedtime. meloxicam (MOBIC) 15 mg tablet Take 15 mg by mouth once daily. amLODIPine (NORVASC) 2.5 mg tablet Take 2.5 mg by mouth once daily. predniSONE (DELTASONE) 10 mg tablet Take 5 mg by mouth once daily. aspirin, enteric coated (ASPIRIN, ENTERIC COATED) 81 mg EC tablet Take 81 mg by mouth once daily. calcium carbonate/vitamin D3 (CALCIUM 600 + D,3, ORAL) Take by mouth. gluc solomon/chondro solomon A/vit C/Mn (GLUCOSAMINE 1500 COMPLEX ORAL) Take by mouth. REVIEW OF SYSTEMS: D/N = 4-6/2-3 Hematuria: none Dysuria: Yes Incontinence: No Urgency: mild Catheter use: No Medications to aid urination: no - Total AUA Score: 8 Bowel movement frequency: occ diarrhea Blood per rectum: none PHYSICAL EXAM: BP 162/89 Pulse 77 Temp 36.3 ?C (97.4 ?F) Resp 18 Wt 88.3 kg (194 lb 9.6 oz) SpO2 99% BMI 28.11 kg/m? KPS: 100 General appearance: Alert and oriented. No acute distress. Rectal exam def Extremities: No deformities, edema, skin discoloration, clubbing or cyanosis. Lymph Nodes: No cervical lymphadenopathy, No supraclavicular lymphadenopathy, No axillary lymphadenopathy. Skin: Skin color, texture, turgor normal, no suspicious rashes or lesions. ASSESSMENT/PLAN: Prostate adenocarcinoma, initial PSA 5.02, biopsy [place] score 3 + 3 = 6 (grade group 1), clinical stage T2a, N0, M0, stage I [cT1a-c/T2a, N0, M0, PSA <10, GG 1] (AJCC 8th ed.), s/p TRUS Random biopsy. Prostate cancer (C61), 2018 NCCN Risk Group: Low Risk Group, status post brachytherapy seed implant 03/20/18 Patient continues to do very well, now with undetectable PSA. 5 years out with treatment. No postradiation related problems. Overall risk for issues at this point well. After discussion we will plan to see patient back in 1 year with repeat PSA. Signed by: Karthik Vaz MD cc: Huber Henning II, MD [facility] 04-30-2024 Nurse Note AUA 8 Noelle Deluna RN [facility] 04-30-2024 Nurse Note AUA 8 Noelle Deluna RN documented in this encounter [facility] 04-22-2024 Telephone encounter Note Order faxed to [facility] lab. Zina Grant RN [facility] 04-22-2024 Miscellaneous Notes Order faxed to [facility] lab. Zina Grant RN Please sign pended yearly PSA order. Fax order to [facility] per patient request. Zina Grant RN documented in this encounter [facility] 04-22-2024 Telephone encounter Note Please sign pended yearly PSA order. Fax order to [facility] per patient request. Zina Grant RN [facility] 04-11-2023 History of Present illness Narrative Radiation Oncology - Follow Up Note PATIENT NAME: Blake Guteirrez PATIENT DIAGNOSIS: Prostate adenocarcinoma, initial PSA 5.02, biopsy [place]imeon score 3 + 3 = 6 (grade group 1), clinical stage T2a, N0, M0, stage I [cT1a-c/T2a, N0, M0, PSA <10, GG 1] (AJCC 8th ed.), s/p TRUS Random biopsy. Prostate cancer (C61), 2018 NCCN Risk Group: Low Risk Group RADIATION SUMMARY: Prostate brachytherapy, I-125, 145 Gy, 23.668 mCi, 61 sources on 03/20/18. INTERVAL HISTORY: Doing well. Denies any new problems or concerns. PSA HISTORY: PSA (ng/mL) Date Value 04/30/2019 0.58 PSA. (no units) Date Value 02/14/2023 0.05 02/07/2021 0.110 02/07/2021 0.110 02/04/2020 0.22 PSA 04/25/18: 4.8 ng/mL ALLERGIES No Known Allergies Omeprazole 40 mg capsule Take 40 mg by mouth once daily. lisinopril (ZESTRIL, PRINIVIL) 40 mg tablet Take 40 mg by mouth once daily. simvastatin (ZOCOR) 40 mg tablet Take 40 mg by mouth daily at bedtime. meloxicam (MOBIC) 15 mg tablet Take 15 mg by mouth once daily. amLODIPine (NORVASC) 2.5 mg tablet Take 2.5 mg by mouth once daily. predniSONE (DELTASONE) 10 mg tablet Take 5 mg by mouth once daily. aspirin, enteric coated (ASPIRIN, ENTERIC COATED) 81 mg EC tablet Take 81 mg by mouth once daily. calcium carbonate/vitamin D3 (CALCIUM 600 + D,3, ORAL) Take by mouth. gluc solomon/chondro solomon A/vit C/Mn (GLUCOSAMINE 1500 COMPLEX ORAL) Take by mouth. furosemide (LASIX) 20 mg tablet Take 20 mg by mouth twice daily. multivitamin (DAILY MULTIPLE) tablet Take 1 tablet by mouth once daily. REVIEW OF SYSTEMS: D/N = 4-6/2-3 Hematuria: none Dysuria: Yes Incontinence: No Urgency: mild Catheter use: No Medications to aid urination: no - Total AUA Score: 6 Bowel movement frequency: occ diarrhea Blood per rectum: none PHYSICAL EXAM: BP 133/78 Pulse 72 Temp 36.1 C (97 F) Resp 16 Wt 92.1 kg (203 lb) SpO2 98% BMI 29.32 kg/m KPS: 100 General appearance: Alert and oriented. No acute distress. Rectal exam def Extremities: No deformities, edema, skin discoloration, clubbing or cyanosis. Lymph Nodes: No cervical lymphadenopathy, No supraclavicular lymphadenopathy, No axillary lymphadenopathy. Skin: Skin color, texture, turgor normal, no suspicious rashes or lesions. ASSESSMENT/PLAN: Prostate adenocarcinoma, initial PSA 5.02, biopsy [place] score 3 + 3 = 6 (grade group 1), clinical stage T2a, N0, M0, stage I [cT1a-c/T2a, N0, M0, PSA <10, GG 1] (AJCC 8th ed.), s/p TRUS Random biopsy. Prostate cancer (C61), 2018 NCCN Risk Group: Low Risk Group, status post brachytherapy seed implant 03/20/18 Patient continues to do very well with stable low PSA. 5 years out with treatment. No postradiation related problems. Discussed seeing him on an as-needed basis as his risk for recurrence or problems are very well. Patient wants to continue follow-up for now, recommend follow-up in 1 year with repeat PSA. Signed by: Karthik Vaz MD cc: Huber Henning II, MD documented in this encounter [facility] 04-11-2023 Nurse Note AUA= 6 documented in this encounter [facility] 04-04-2023 Miscellaneous Notes Signed - thanks! Main Please sign pended PSA order. Noelle Deluna, HARJIT documented in this encounter [facility] 03-26-2023 Hospital Discharge instructions Follow Up Care 03/26/2023 11:36:01 With:MANI LERMA, Vamsi Allen, URL Address: [facility] [address] [place] [address] [phone] When: Unknown [facility] José Miguel 03-26-2023 Hospital Discharge instructions Patient Education 03/26/2023 11:31:39 Prostate Cancer Prostate Cancer The prostate is a small gland that produces fluid that makes up semen (seminal fluid). It is located below the bladder in men, in front of the rectum. Prostate cancer is the abnormal growth of cells in the prostate gland. What are the causes? The exact cause of this condition is not known. What increases the risk? You are more likely to develop this condition if: You are 65 years of age or older. You have a family history of prostate cancer. You have a family history of breast and ovarian cancer. You have genes that are passed from parent to child (inherited), such as BRCA1 and BRCA2. You have Childers syndrome. men and men of descent are diagnosed with prostate cancer at higher rates than other men. The reasons for this are not well understood and are likely due to a combination of genetic and environmental factors. What are the signs or symptoms? Symptoms of this condition include: Problems with urination. This may include: ?A weak or interrupted flow of urine. ?Trouble starting or stopping urination. ?Trouble emptying the bladder all the way. ?The need to urinate more often, especially at night. Blood in urine or semen. Persistent pain or discomfort in the lower back, lower abdomen, or hips. Trouble getting an erection. Weakness or numbness in the legs or feet. How is this diagnosed? This condition can be diagnosed with: A digital rectal exam. For this exam, a health care provider inserts a gloved finger into the rectum to feel the prostate gland. A blood test called a prostate-specific antigen (PSA) test. A procedure in which a sample of tissue is taken from the prostate and checked under a microscope (prostate biopsy). An imaging test called transrectal ultrasonography. Once the condition is diagnosed, tests will be done to determine how far the cancer has spread. This is called staging the cancer. Staging may involve imaging tests, such as a bone scan, CT scan, PET scan, or MRI. Stages of prostate cancer The stages of prostate cancer are as follows: Stage 1 (I). At this stage, the cancer is found in the prostate only. The cancer is not visible on imaging tests, and it is usually found by accident, such as during prostate surgery. Stage 2 (II). At this stage, the cancer is more advanced than it is in stage 1, but the cancer has not spread outside the prostate. Stage 3 (III). At this stage, the cancer has spread beyond the outer layer of the prostate to nearby tissues. The cancer may be found in the seminal vesicles, which are near the bladder and the prostate. Stage 4 (IV). At this stage, the cancer has spread to other parts of the body, such as the lymph nodes, bones, bladder, rectum, liver, or lungs. Prostate cancer grading Prostate cancer is also graded according to how the cancer cells look under a microscope. This is called the [place] score and the total score can range from 6 10, indicating how likely it is that the cancer will spread (metastasize) to other parts of the body. The higher the score, the greater the likelihood that the cancer will spread. [place] 6 or lower: This indicates that the cancer cells look similar to normal prostate cells (well differentiated). [place] 7: This indicates that the cancer cells look somewhat similar to normal prostate cells (moderately differentiated). Simeon 8, 9, or 10: This indicates that the cancer cells look very different than normal prostate cells (poorly differentiated). How is this treated? Treatment for this condition depends on several factors, including the stage of the cancer, your age, personal preferences, and your overall health. Talk with your health care provider about treatment options that are recommended for you. Common treatments include: Observation for early stage prostate cancer (active surveillance). This involves having exams, blood tests, and in some cases, more biopsies. For some men, this is the only treatment needed. Surgery. Types of surgeries include: ?Open surgery (radical prostatectomy). In this surgery, a larger incision is made to remove the prostate. ?A laparoscopic radical prostatectomy. This is a surgery to remove the prostate and lymph nodes through several small incisions. It is often referred to as a minimally invasive surgery. ?A robotic radical prostatectomy. This is laparoscopic surgery to remove the prostate and lymph nodes with the help of robotic arms that are controlled by the surgeon. ?Cryoablation. This is surgery to freeze and destroy cancer cells. Radiation treatment. Types of radiation treatment include: ?External beam radiation. This type aims beams of radiation from outside the body at the prostate to destroy cancerous cells. ?Brachytherapy. This type uses radioactive needles, seeds, wires, or tubes that are implanted into the prostate gland. Like external beam radiation, brachytherapy destroys cancerous cells. An advantage is that this type of radiation limits the damage to surrounding tissue and has fewer side effects. Chemotherapy. This treatment kills cancer cells or stops them from multiplying. It kills both cancer cells and normal cells. Targeted therapy. This treatment uses medicines to kill cancer cells without damaging normal cells. Hormone treatment. This treatment involves taking medicines that act on testosterone, one of the male hormones, by: ?Stopping your body from producing testosterone. ?Blocking testosterone from reaching cancer cells. Follow these instructions at home: Lifestyle Do not use any products that contain nicotine or tobacco. These products include cigarettes, chewing tobacco, and vaping devices, such as e-cigarettes. If you need help quitting, ask your health care provider. Eat a healthy diet. To do this: ?Eat foods that are high in fiber. These include beans, whole grains, and fresh fruits and vegetables. ?Limit foods that are high in fat and sugar. These include fried or sweet foods. Treatment for prostate cancer may affect sexual function. If you have a partner, continue to have intimate moments. This may include touching, holding, hugging, and caressing your partner. Get plenty of sleep. Consider joining a support group for men who have prostate cancer. Meeting with a support group may help you learn to manage the stress of having cancer. General instructions Take [id number]-bzfoybh and prescription medicines only as told by your health care provider. If you have to go to the hospital, notify your cancer specialist (oncologist). Keep all follow-up visits. This is important. Where to find more information [place] [employer]: www.cancer.org [place] [employer]: www.cancer.net [employer] [place]: www.cancer.gov Contact a health care provider if: You have new or increasing trouble urinating. You have new or increasing blood in your urine. You have new or increasing pain in your hips, back, or chest. Get help right away if: You have weakness or numbness in your legs. You cannot control urination or your bowel movements (incontinence). You have chills or a fever. Summary The prostate is a small gland that is involved in the production of semen. It is located below a man's bladder, in front of the rectum. Prostate cancer is the abnormal growth of cells in the prostate gland. Treatment for this condition depends on the stage of the cancer, your age, personal preferences, and your overall health. Talk with your health care provider about treatment options that are recommended for you. Consider joining a support group for men who have prostate cancer. Meeting with a support group may help you learn to manage the stress of having cancer. This information is not intended to replace advice given to you by your health care provider. Make sure you discuss any questions you have with your health care provider. Document Revised: 11/02/2021 Document Reviewed: 11/02/2021 [employer] Patient Education 2022 [employer]. Follow Up Care 12/27/2021 08:45:05 With:MANI LERMA, Vamsi Allen, URL Address: [facility] [address] [place] [address]- [phone] When: Unknown Comments:1 yr w/ PSA [facility] José Miguel 12-27-2021 Hospital Discharge instructions Patient Education 12/27/2021 08:37:53 Prostate Cancer Prostate Cancer The prostate is a walnut-sized gland that is involved in the production of semen. It is located below a man's bladder, in front of the rectum. Prostate cancer is the abnormal growth of cells in the prostate gland. What are the causes? The exact cause of this condition is not known. What increases the risk? This condition is more likely to develop in men who: Are older than age 65. Are -[place]. Are obese. Have a family history of prostate cancer. Have a family history of breast cancer. What are the signs or symptoms? Symptoms of this condition include: A need to urinate often. Weak or interrupted flow of urine. Trouble starting or stopping urination. Inability to urinate. Pain or burning during urination. Painful ejaculation. Blood in urine or semen. Persistent pain or discomfort in the lower back, lower abdomen, hips, or upper thighs. Trouble getting an erection. Trouble emptying the bladder all the way. How is this diagnosed? This condition can be diagnosed with: A digital rectal exam. For this exam, a health care provider inserts a gloved finger into the rectum to feel the prostate gland. A blood test called a prostate-specific antigen (PSA) test. An imaging test called transrectal ultrasonography. A procedure in which a sample of tissue is taken from the prostate and examined under a microscope (prostate biopsy). Once the condition is diagnosed, tests will be done to determine how far the cancer has spread. This is called staging the cancer. Staging may involve imaging tests, such as: A bone scan. A CT scan. A PET scan. An MRI. The stages of prostate cancer are as follows: Stage I. At this stage, the cancer is found in the prostate only. The cancer is not visible on imaging tests and it is usually found by accident, such as during a prostate surgery. Stage II. At this stage, the cancer is more advanced than it is in stage I, but the cancer has not spread outside the prostate. Stage III. At this stage, the cancer has spread beyond the outer layer of the prostate to nearby tissues. The cancer may be found in the seminal vesicles, which are near the bladder and the prostate. Stage IV. At this stage, the cancer has spread other parts of the body, such as the lymph nodes, bones, bladder, rectum, liver, or lungs. How is this treated? Treatment for this condition depends on several factors, including the stage of the cancer, your age, personal preferences, and your overall health. Talk with your health care provider about treatment options that are recommended for you. Common treatments include: Observation for early stage prostate cancer (active surveillance). This involves having exams, blood tests, and in some cases, more biopsies. For some men, this is the only treatment needed. Surgery. Types of surgeries include: ?Open surgery. In this surgery, a larger incision is made to remove the prostate. ?A laparoscopic prostatectomy. This is a surgery to remove the prostate and lymph nodes through several, small incisions. It is often referred to as a minimally invasive surgery. ?A robotic prostatectomy. This is a surgery to remove the prostate and lymph nodes with the help of a robotic arm that is controlled by a computer. ?Orchiectomy. This is a surgery to remove the testicles. ?Cryosurgery. This is a surgery to freeze and destroy cancer cells. Radiation treatment. Types of radiation treatment include: ?External beam radiation. This type aims beams of radiation from outside the body at the prostate to destroy cancerous cells. ?Brachytherapy. This type uses radioactive needles, seeds, wires, or tubes that are implanted into the prostate gland. Like external beam radiation, brachytherapy destroys cancerous cells. An advantage is that this type of radiation limits the damage to surrounding tissue and has fewer side effects. High-intensity, focused ultrasonography. This treatment destroys cancer cells by delivering high-energy ultrasound waves to the cancerous cells. Chemotherapy medicines. This treatment kills cancer cells or stops them from multiplying. Hormone treatment. This treatment involves taking medicines that act on one of the male hormones (testosterone): ?By stopping your body from producing testosterone. ?By blocking testosterone from reaching cancer cells. Follow these instructions at home: Take rayz-qci-vhnisof and prescription medicines only as told by your health care provider. Maintain a healthy diet. Get plenty of sleep. Consider joining a support group for men who have prostate cancer. Meeting with a support group may help you learn to cope with the stress of having cancer. Keep all follow-up visits as told by your health care provider. This is important. If you have to go to the hospital, notify your cancer specialist (oncologist). Treatment for prostate cancer may affect sexual function. Continue to have intimate moments with your partner. This may include touching, holding, hugging, and caressing. Contact a health care provider if: You have trouble urinating. You have blood in your urine. You have pain in your hips, back, or chest. Get help right away if: You have weakness or numbness in your legs. You cannot control urination or your bowel movements (incontinence). You have trouble breathing. You have sudden chest pain. You have chills or a fever. Summary The prostate is a walnut-sized gland that is involved in the production of semen. It is located below a man's bladder, in front of the rectum. Prostate cancer is the abnormal growth of cells in the prostate gland. Treatment for this condition depends on several factors, including the stage of the cancer, your age, personal preferences, and your overall health. Talk with your health care provider about treatment options that are recommended for you. Consider joining a support group for men who have prostate cancer. Meeting with a support group may help you learn to cope with the stress of having cancer. This information is not intended to replace advice given to you by your health care provider. Make sure you discuss any questions you have with your health care provider. Document Released: 08/06/2006 Document Revised: 07/19/2018 Document Reviewed: 04/16/2017 [employer] Patient Education 2020 [employer]. Follow Up Care 12/07/2020 09:14:56 With:Christian Barrios MD, Juanito Rincon, URO Address: [facility] [address] [place] [address]- When:12/27/2022 [facility] Evaluation + Plan note Future Appointments Appointment Date:12/26/2022 08:45:00 AM Scheduled Provider:Juanito Gonzales Jr., MD Location:[facility] Appointment Type:URO Office Visit [facility] Evaluation + Plan note Future Appointments Appointment Date:03/24/2024 08:45:00 AM Scheduled Provider:Vamsi AYALA MD Location:[facility] Appointment Type:URO Office Visit Diagnostic Tests PendingPSA Total 03/26/23 [facility] Evaluation + Plan note Future Appointments Appointment Date:07/31/2025 08:15:00 AM Scheduled Provider:Vamsi AYALA MD Location:[facility] Appointment Type:URO Office Visit Diagnostic Tests PendingPSA Total 07/28/24 [facility] Evaluation note Diagnosis History of prostate cancer- Primary Personal history of malignant neoplasm of prostate [facility] History of prostate cancer- Primary Personal history of malignant neoplasm of prostate [facility] Diagnosis History of prostate cancer- Primary Personal history of malignant neoplasm of prostate [facility] Diagnosis History of prostate cancer- Primary Personal history of malignant neoplasm of prostate [facility] Diagnosis 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, left documented in this encounter [facility]* Diagnosis Routine general medical examination at health care facility- Primary Routine general medical examination at a health care facility ACP (advance care planning) Other specified counseling 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, stage 2 (mild) Malignant neoplasm of prostate (CMS/HCC) Malignant neoplasm of prostate [facility] Diagnosis Benign essential hypertension (CMS/HCC)- Primary Essential hypertension, benign Polymyalgia rheumatica (CMS/HCC) Polymyalgia rheumatica Adenocarcinoma of prostate (CMS/HCC) Malignant neoplasm of prostate Glenohumeral arthritis, right FLYNN (dyspnea on exertion) Other dyspnea and respiratory abnormality Systolic murmur Undiagnosed cardiac murmurs Trapezius muscle spasm documented in this encounter [facility] noteNo assessment information availableChildren[facility] Work Phone: Evaluation note* Diagnosis Nonrheumatic mitral valve regurgitation- Primary Polymyalgia rheumatica ([facility]-HCC) Polymyalgia rheumatica Benign essential hypertension Essential hypertension, benign Pure hypercholesterolemia Pure hypercholesterolemia Neoplasm of uncertain behavior of skin of face documented in this encounter [facility] note* Diagnosis Nonrheumatic mitral valve regurgitation- Primary Mild aortic stenosis Aortic valve disorders Essential hypertension Unspecified essential hypertension Mixed hyperlipidemia BMI 31.0-31.9,adult Never smoked tobacco documented in this encounter [facility] Work Phone: Hospital course Narrative No data available for this section [facility] progress note No data available for this section [facility] reason for referral (narrative)No reason for referral information availableChildren[facility] Work Phone: Summary Purpose Family History No Family History Records FoundNo Family History Records FoundNo Family History Records Found No data available for this section No data available for this section No Family History Records FoundNo Family History Records FoundNo Family History Records FoundNo Family History Records FoundNo Family History Records Found Advance Directives Advance Directive Response Recorded Date/ Time Advance Directives No January 09 8:09am Chief Complaint and Reason for Visit Chief Complaint Admit Date R06.09 R01.1 January 09, 2025 8:00a m Chief Complaint Admit Date aortic stenosis April 29, 2025 10:15am Additional Source Comments (unrecognized sect ion and content) No Status Records FoundNo Status Records FoundNo Status Records FoundNo Status Records FoundNo Status Records FoundNo Status Records FoundNo Status Records FoundNo Status Records Found INFORMATION SOURCE (unrecogn ized section and content) DATE CREATED AUTHOR 11/03/2021 [facility] dical Specialist DATE CREATED AUTHOR AUTHOR'S ORGANIZ ATION 02/17/2022 [facility] DATE CREATED AUTHOR AUTHOR'S ORGANIZ ATION 05/11/2024 [facility] DATE CREATED AUTHOR AUTHOR'S ORGANIZ ATION 08/11/2024 [facility] DATE CREATED AUTHOR AUTHOR'S ORGANIZ ATION 03/20/2025 [facility] dical Specialists EPIC DATE CREATED AUTHOR AUTHOR'S ORGANIZ ATION 03/21/2025 [facility] DATE CREATED AUTHOR AUTHOR'S ORGANIZ ATION 05/01/2025 [facility] DATE CREATED AUTHOR AUTHOR'S ORGANIZ ATION 05/02/2025 [facility] Ambulatory Patient Care team informatio n (unrecognized section and content) 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 Relationship Specialty Start Date End Date Huber Henning II, MD [address] [place] [address] PCP - General Internal Medicine 01/22/18 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 Relationship Specialty Start Date End Date Huber Henning II, MD [address] [place] [address] PCP - General Internal Medicine 01/22/18 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 Relationship Specialty Start Date End Date Huber Henning MD [address] [place] [address] PCP - General Internal Medicine 02/21/23 Huber Henning MD [address] [place] [address] PCP - ACO Reach 10/19/23 Huber Henning MD [address] [place] [address] PCP - Sravani SALINAS 03/20/24 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 Relationship Specialty Start Date End Date Huber Henning MD [address] [place] [address] PCP - General Internal Medicine 02/21/23 Huber Henning MD [address] [place] [address] PCP - ACO Reach 10/19/23 Huber Henning MD [address] [place] [address] PCP - Sravani SALINAS 03/20/24 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 Relationship Specialty Start Date End Date Huber Henning MD [address] [place] [address] PCP - General Internal Medicine 02/21/23 Huber Henning MD [address] [place] [address] PCP - ACO Reach 10/19/23 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 Relationship Specialty Start Date End Date Huber Henning MD [address] [place] [address] PCP - General Internal Medicine 02/21/23 Huber Henning MD [address] [place] [address] PCP - ACO Reach 10/19/23 Huber Henning MD [address] [place] [address] PCP - Sravani SALINAS 03/20/24 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 Relationship Specialty Start Date End Date Huber Henning MD [address] [place] [address] PCP - General Internal Medicine 02/21/23 Huber Henning MD [address] [place] [address] PCP - ACO Reach 10/19/23 Huber Henning MD [address] [place] [address] PCP - Sravani SALINAS 03/20/24 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 Relationship Specialty Start Date End Date Huber Henning MD [address] [place] [address] PCP - General Internal Medicine 02/21/23 Huber Henning MD [address] [place] [address] PCP - ACO Reach 10/19/23 Huber Henning MD [address] [place] [address] PCP - Sravani SALINAS 03/20/24 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 Relationship Specialty Start Date End Date Huber Henning MD [address] [place] [address] PCP - General Internal Medicine 02/21/23 Huber Henning MD [address] [place] [address] PCP Disha Lassiter MA 03/20/24 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 Relationship Specialty Start Date End Date Huber Henning MD [address] [place] [address] PCP - General Internal Medicine 02/21/23 Huber Henning MD [address] [place] [address] PCP - Sravani SALINAS 03/20/24 Team Status: Active Member Role Status Dates Huber Henning II MD Primary Care Provider Active Team Status: Inactive Member Role Status Dates Huber Henning II MD Primary Care Provid er, Attending Provider Active Start: January 09, 2025 End: January 09, 2025 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 Relationship Specialty Start Date End Date Huber Henning MD [address] [place] [address] PCP - General Internal Medicine 02/21/23 Huber Henning MD [address] [place] [address] PCP - Sravani SALINAS 03/20/24 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 Relationship Specialty Start Date End Date Huber Henning MD [address] [place] [address] PCP - General Internal Medicine 02/21/23 Huber Henning MD [address] [place] [address] PCP - Sravani SALINAS 03/20/24 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 Relationship Specialty Start Date End Date Huber Henning MD [address] [place] [address] PCP - General Internal Medicine 03/18/25 Team Status: Inactive Member Role Status Dates Huber Henning II MD Primary Care Provider Active Start: April 29, 2025 End: April 29, 2025 Amrit Sanchez MD Attending Provider Active Start: April 29, 2025 End: April 29, 2025 Amrit Sanchez MD Referring Provider Active Start: April 29, 2025 End: April 29, 2025 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 Relationship Specialty Start Date End Date Huber Henning MD [address] [place] [address] PCP - General Internal Medicine 02/21/23 Huber Henning MD [address] [place] [address] [address] [place] [id number] PCP - Sravani SALINAS 03/20/24 Source Comments (unrecognize d section and content) In the event this informatio n is protected by the Federal Confidentiality of Alcohol and Drug Abuse Patient Records regulations: The Federal rules restrict any use of the information to criminally investigate or prosecute any alcohol or drug abuse patient.[facility] Hospital[facility] the event this information is protected by the Federal Confidentiality of Alcohol and Drug Abuse Patient Records regulations: The Federal rules restrict any use of the information to criminally investigate or prosecute any alcohol or drug abuse patient.[facility] HospitalIn the event this information is protected by the Federal Confidentiality of Alcohol and Drug Abuse Patient Records regulations: The Federal rules restrict any use of the information to criminally investigate or prosecute any alcohol or drug abuse patient.[facility] Hospital[facility] the event this information is protected by the Federal Confidentiality of Alcohol and Drug Abuse Patient Records regulations: The Federal rules restrict any use of the information to criminally investigate or prosecute any alcohol or drug abuse patient.[facility] Reason for Visit (unrecogniz ed section and content) Reason Comments Prostate Cancer Specialty Diagnoses / Procedures Referred By Contac t Referred To Contact Radiation Oncology / RADIATION ONCOLOGY Diagnoses 1 year follow up outside lab at [place] Procedures EST PATIENT Karthik Vaz MD [address] [place] [address] Karthik Vaz MD [address] [place] [address] Referral ID Status Reason Start Date Expiration Date V isits Requested Visits Authorized [id number] New Request 04/30/2024 07/29/2024 1 0 Reason Comments Lab Orders Reason Comments Orders Reason Comments Follow-up Reason Onset Date Comments referral 07/01/2024 Reason Comments Medicare Annual Wellness Visit [facility] Reason Comments Hypertension Reason Comments Hypertension Results echo Diabetic Eye Exam Reason Comments Establish Care New-Referral from Dr Cifuentes for HTN Specialty Diagnoses / Procedures Referred By Contac t Referred To Contact Diagnoses Moderate mitral regurgitation Mild aortic stenosis Procedures ECG 12 Lead Amrit Sanchez MD [address] [facility] [address] [place] [address] Phone: tel: fax: Referral ID Status Reason Start Date Expiration Date V isits Requested Visits Authorized [id number] Authorized 04/02/2025 04/02/2026 1 1 Goals (unrecognized section and content) Goals may be documented in a n alternate section FOR RECORDS PERTAINING TO PATIENTS WHO ARE OR HAVE BEEN ENROLLED IN A CHEMICAL DEPENDENCY/SUBSTANCEABUSE PROGRAM, SOME INFORMATION MAY BE OMITTED. This clinical summary was aggregated from multiple sources. Caution should be exercised in using it in the provision of clinical care. This summary normalizes information from multiple sources, and as a consequence, information in this document may materially change the coding, format and clinical context of patient data. In addition, data may be omitted in some cases. CLINICAL DECISIONS SHOULD BE BASED ON THE PRIMARY CLINICAL RECORDS. [employer] [facility]. provides no warranty or guarantee of the accuracy or completeness of information in this document.
== END 2025-05-06 15:34 | disposition home or self-care (01) ==
LOC: LAB 15:33
PROVIDERS: PCP Internal Medicine; Visit Provider Radiology Radiation Oncology
DX: Z85.46 Personal history of malignant neoplasm of prostate (principal)
CPT/HCPCS: 36415; 84153